=== PATIENT | female | born 1940 | race African-American/Black ===

== ENCOUNTER 2017-11-30 14:04 | Emergency (ER) | payer MEDICARE, OTHER ==
[2017-11-30 14:41] LABS: ADD MAN DIFF? NO
[2017-11-30 14:49] LABS: BASO % 0 % (0-3); EOS # 0.1 x10^3/uL (0.0-0.7); EOS % 3 % (0-3); HEMATOCRIT 31.8 % (36.0-47.0); HEMOGLOBIN 10.6 g/dL (12.0-15.5); LYMPH # 1.3 x10^3/uL (1.0-4.8); LYMPH % 38 % (24-48); MEAN CORPUSCULAR HEMOGLOBIN 31 pg (25-35); MEAN CORPUSCULAR HGB CONC 33 g/dL (31-37); MEAN CORPUSCULAR VOLUME 93 fL (79-100); MONO # 0.5 x10^3/uL (0.0-1.1); MONO % 16 % (0-9); NEUT # 1.4 x10^3uL (1.8-7.7); NEUT % 43 % (31-73); PLATELET COUNT 145 x10^3/uL (140-400); RED BLOOD COUNT 3.43 x10^6/uL (3.50-5.40); RED CELL DISTRIBUTION WIDTH 14.6 % (11.5-14.5); WHITE BLOOD COUNT 3.3 x10^3/uL (4.0-11.0)
[2017-11-30 14:57] LABS: ANION GAP 10 (6-14); BLOOD UREA NITROGEN 19 mg/dL (7-20); BUN/CREATININE RATIO 32 (6-20); CALCIUM 9.1 mg/dL (8.5-10.1); CARBON DIOXIDE 28 mmol/L (21-32); CHLORIDE 105 mmol/L (98-107); CREATININE 0.6 mg/dL (0.6-1.0); GFR 117.9; GLUCOSE 120 mg/dL (70-99); POTASSIUM 3.8 mmol/L (3.5-5.1); SODIUM 143 mmol/L (136-145)
[2017-11-30 15:03] LABS: ALBUMIN 3.8 g/dL (3.4-5.0); ALBUMIN/GLOBULIN RATIO 1.1 (1.0-1.7); ALK PHOS 77 U/L (46-116); ALT (SGPT) 38 U/L (14-59); AST (SGOT) 24 U/L (15-37); C-REACTIVE PROTEIN 1.2 mg/L (0-3.3); TOTAL BILIRUBIN 0.4 mg/dL (0.2-1.0); TOTAL PROTEIN 7.4 g/dL (6.4-8.2)
[2017-11-30 15:30] LABS: BACTERIA,URINE MANY /HPF (0-FEW); BILIRUBIN,URINE NEGATIVE (NEG); CLARITY,URINE CLOUDY; COLOR,URINE YELLOW; GLUCOSE,URINE NEGATIVE (NEG); NITRITE,URINE POSITIVE (NEG); PH,URINE 7.5; PROTEIN,URINE NEGATIVE (NEG-TRACE); SQUAMOUS EPITHELIAL CELL,UR FEW /LPF; UROBILINOGEN,URINE 0.2 mg/dL (0.2 mg/dL)
[2017-11-30 15:57] LABS: SEDIMENTATION RATE 14 (0-25)
== END 2017-11-30 17:28 | disposition home or self-care (01) ==
LOC: ER 17:28
DX: I87.8 Other specified disorders of veins (principal); N39.0 Urinary tract infection, site not specified; F32.9 Major depressive disorder, single episode, unspecified; E11.9 Type 2 diabetes mellitus without complications; I11.0 Hypertensive heart disease with heart failure; I50.9 Heart failure, unspecified; G89.29 Other chronic pain; Z90.710 Acquired absence of both cervix and uterus
CPT/HCPCS: 36415; 80053; 81001; 85025; 85651; 86140; 87040; 87086; 87186; 93970; 99285-25; P9612

== ENCOUNTER → 2017-12-21 | Outpatient (CLI) | payer MEDICARE, OTHER | END | disposition home or self-care (01) | LOC: MRI 11:00 | DX: M48.061 Spinal stenosis, lumbar region without neurogenic claudication (principal); M51.16 Intervertebral disc disorders with radiculopathy, lumbar region | CPT/HCPCS: 72148 ==

== ENCOUNTER → 2017-12-28 | Outpatient (CLI) | payer MEDICARE, OTHER ==
[~2017-12-28] MED LIST: IOHEXOL 180 MG/ML 10 ML VIAL.; LIDOCAINE 1% PF 2 ML VIAL.; methylPREDNISolone ACETATE 40 MG/ML VIAL.; methylPREDNISolone ACETATE 80 MG/ML VIAL.
== END | disposition home or self-care (01) ==
LOC: PNCL 11:14
DX: M51.16 Intervertebral disc disorders with radiculopathy, lumbar region (principal); M48.061 Spinal stenosis, lumbar region without neurogenic claudication; Z86.73 Personal history of transient ischemic attack (TIA), and cerebral infarction without residual deficits; I11.0 Hypertensive heart disease with heart failure; I50.9 Heart failure, unspecified; E78.00 Pure hypercholesterolemia, unspecified; Z90.49 Acquired absence of other specified parts of digestive tract; Z90.710 Acquired absence of both cervix and uterus; Z87.440 Personal history of urinary (tract) infections; M19.90 Unspecified osteoarthritis, unspecified site; M06.9 Rheumatoid arthritis, unspecified; E11.9 Type 2 diabetes mellitus without complications; F32.9 Major depressive disorder, single episode, unspecified; Z98.890 Other specified postprocedural states; Z98.1 Arthrodesis status; Z79.84 Long term (current) use of oral hypoglycemic drugs; Z79.899 Other long term (current) drug therapy
CPT/HCPCS: 62323; J1030; J1040; Q9965

== ENCOUNTER 2018-10-04 13:38 | Inpatient (IN) | payer MEDICARE, OTHER ==
[~2018-10-04] VITALS: Ht 160 cm; Wt 60.1 kg
[~2018-10-04 13:38] MED LIST changes: +ACET325T9 PO; +ACET500T68 PO; +BACL10TA PO; +CELE200C PO; +CIPR250T30 PO; +FENT1PAT91 TP; +FOLI1TAB16 PO; +FURO20TA3 PO; +GABA300C18 PO; -IOHEXOL 180 MG/ML 10 ML VIAL.; -LIDOCAINE 1% PF 2 ML VIAL.; +LINA5TAB PO; +LISI10TA2 PO; +LISI5TAB PO; +LOSA-73 PO; +METF10007 PO; +OXYC1TAB8 PO; +POLY17PO29 PO; +SENN-82 PO; +SERT50TA PO; +SIMV10TA3 PO; +SIMV20TA3 PO; +SITA25TA PO; +SITA50TA PO; +THERAVITE PO; +TIZA4TAB8 PO; +[UNRECOGNIZED DRUG - CODE] PO; -methylPREDNISolone ACETATE 40 MG/ML VIAL.; -methylPREDNISolone ACETATE 80 MG/ML VIAL.; +tamulosin PO
[2018-10-04 14:53] LABS: BASO % 0 % (0-3); EOS % 1 % (0-3); HEMATOCRIT 35.9 % (36.0-47.0); HEMOGLOBIN 11.8 g/dL (12.0-15.5); LYMPH # 1.2 x10^3/uL (1.0-4.8); LYMPH % 27 % (24-48); MEAN CORPUSCULAR HEMOGLOBIN 30 pg (25-35); MEAN CORPUSCULAR HGB CONC 33 g/dL (31-37); MEAN CORPUSCULAR VOLUME 91 fL (79-100); MONO # 0.5 x10^3/uL (0.0-1.1); MONO % 11 % (0-9); NEUT # 2.7 x10^3uL (1.8-7.7); NEUT % 62 % (31-73); PLATELET COUNT 182 x10^3/uL (140-400); RED BLOOD COUNT 3.96 x10^6/uL (3.50-5.40); RED CELL DISTRIBUTION WIDTH 14.4 % (11.5-14.5); WHITE BLOOD COUNT 4.3 x10^3/uL (4.0-11.0)
[2018-10-04 14:54] LABS: BILIRUBIN,URINE SMALL (NEG); CLARITY,URINE CLEAR; COLOR,URINE YELLOW; NITRITE,URINE POSITIVE (NEG); PROTEIN,URINE 30 mg/dL (NEG-TRACE)
[2018-10-04 14:57] LABS: HYALINE CASTS, URINE FEW /HPF
[2018-10-04 14:58] LABS: BACTERIA,URINE MANY /HPF (0-FEW)
[2018-10-04 15:02] LABS: CALCIUM 9.6 mg/dL (8.5-10.1); CREATININE 0.9 mg/dL (0.6-1.0); GFR 73.7; POTASSIUM 3.7 mmol/L (3.5-5.1)
[2018-10-04 15:08] LABS: ALBUMIN 3.9 g/dL (3.4-5.0); TOTAL BILIRUBIN 0.6 mg/dL (0.2-1.0)
--- NOTE | 2018-10-04 15:10 | EKG ---
[facility] [address] [place] [address] Test Date: 2018-10-04 Test Time: 13:50:22 Pat Name: MIS LEE Department: Room: Gender: F Php Website Developer: : 1940 Requested By: FRITZ DÍAZ Order Number: [id number] Reading MD: Tony Costa Measurements Intervals [place] Rate: 84 P: 48 IN: 142 QRS: -16 QRSD: 86 T: -1 QT: 376 QTc: 447 Interpretive Statements SINUS RHYTHM LEFTWARD AXIS NON SPECIFIC T ABNORMALITY Electronically Signed On 10-08-2018 9:21:00 CDT by Tony Costa
--- NOTE | 2018-10-04 15:28 | PHYS DOC ---
Past Medical History Past Medical History: CHF, Depression, Diabetes-Type II, Hypertension, Other Additional Past Medical Histor: blood clots, chronic back pain, (FRITZ DÍAZ SECURITIES AND REAL ESTATE DIRECTOR) Past Surgical History: Appendectomy, Cervical Fusion, Hysterectomy, Tonsillectomy (FRITZ DÍAZ SECURITIES AND REAL ESTATE DIRECTOR) Alcohol Use: None Drug Use: None (FRITZ DÍAZ APRN) Adult General Chief Complaint Chief Complaint: WEAKNESS/GENERALIZED HPI HPI Patient is a 78 year old female who presents with decreased LOC, weakness and an inability to walk at home per her daughter. She arrived via EMS. The patient ia a very poor historian. She does complain of dysuria. She denies headache or chest pain. (FRITZ DÍAZ SECURITIES AND REAL ESTATE DIRECTOR) Review of Systems Review of Systems Constitutional: Denies fever or chills [] Eyes: Denies change in visual acuity, redness, or eye pain [] HENT: Denies nasal congestion or sore throat [] Respiratory: Denies cough or shortness of breath [] Cardiovascular: No additional information not addressed in HPI [] GI: Denies abdominal pain, nausea, vomiting, bloody stools or diarrhea [] : See history of present illness Musculoskeletal: Denies back pain or joint pain [] Integument: Denies rash or skin lesions [] Neurologic: Denies headache, focal weakness or sensory changes [] Endocrine: Denies polyuria or polydipsia [] All other systems were reviewed and found to be within normal limits, except as documented in this note. (JESSICAFRITZ VENCES APRN) Allergies Allergies Allergies Coded Allergies Type Severity Reaction Last Updated Verified No Known Drug Allergies 09/28/14 No (EFREN MILLS MD) Physical Exam Physical Exam Constitutional: Well developed, well nourished, no acute distress, non-toxic appearance. [] Eyes: PERRLA, EOMI, conjunctiva normal, no discharge. [] Neck: Normal range of motion, no tenderness, supple, no stridor. [] Cardiovascular:Heart rate regular rhythm, no murmur [] Lungs & Thorax: Bilateral breath sounds clear to auscultation [] Abdomen: Bowel sounds normal, soft, no tenderness, no masses, no pulsatile masses. [] Skin: Warm, dry, no erythema, no rash. [] Back: No tenderness, no CVA tenderness. [] Extremities: No tenderness, erythema and 1+ edema to bilateral lower extremities Neurologic: Alert and oriented X 3, normal motor function, normal sensory function, no focal deficits noted. [] Psychologic: Affect normal, judgement normal, mood normal. [] (ARJUNFRITZМАРИЯ Joseph APRN) Current Patient Data Vital Signs Vital Signs Date Time Temp Pulse Resp B/P (MAP) Pulse Ox O2 Delivery O2 Flow Rate FiO2 10/04/18 14:50 82 31 100 10/04/18 13:45 99.0 153/75 (101) Room Air 99.0 (EFREN MILLS MD) Lab Values Laboratory Tests Test 10/04/18 14:25 White Blood Count 4.3 x10^3/uL (4.0-11.0) Red Blood Count 3.96 x10^6/uL (3.50-5.40) Hemoglobin 11.8 g/dL (12.0-15.5) L Hematocrit 35.9 % (36.0-47.0) L Mean Corpuscular Volume 91 fL (79-100) Mean Corpuscular Hemoglobin 30 pg (25-35) Mean Corpuscular Hemoglobin Concent 33 g/dL (31-37) Red Cell Distribution Width 14.4 % (11.5-14.5) Platelet Count 182 x10^3/uL (140-400) Neutrophils (%) (Auto) 62 % (31-73) Lymphocytes (%) (Auto) 27 % (24-48) Monocytes (%) (Auto) 11 % (0-9) H Eosinophils (%) (Auto) 1 % (0-3) Basophils (%) (Auto) 0 % (0-3) Neutrophils # (Auto) 2.7 x10^3uL (1.8-7.7) Lymphocytes # (Auto) 1.2 x10^3/uL (1.0-4.8) Monocytes # (Auto) 0.5 x10^3/uL (0.0-1.1) Eosinophils # (Auto) 0.0 x10^3/uL (0.0-0.7) Basophils # (Auto) 0.0 x10^3/uL (0.0-0.2) Urine Collection Type U cath Urine Color Yellow Urine Clarity Clear Urine pH 5.0 Urine Specific [place] >=1.030 Urine Protein 30 mg/dL (NEG-TRACE) Urine Glucose (UA) 250 mg/dL (NEG) Urine Ketones (Stick) 15 mg/dL (NEG) Urine Blood Moderate (NEG) Urine Nitrite Positive (NEG) Urine Bilirubin Small (NEG) Urine Urobilinogen Dipstick 1.0 mg/dL (0.2 mg/dL) Urine Leukocyte Esterase Small (NEG) Urine RBC 1-2 /HPF (0-2) Urine WBC 11-20 /HPF (0-4) Urine Bacteria Many /HPF (0-FEW) Urine Hyaline Casts Few /HPF Urine Mucus Mod /LPF Sodium Level 140 mmol/L (136-145) Potassium Level 3.7 mmol/L (3.5-5.1) Chloride Level 100 mmol/L (98-107) Carbon Dioxide Level 30 mmol/L (21-32) Anion Gap 10 (6-14) Blood Urea Nitrogen 20 mg/dL (7-20) Creatinine 0.9 mg/dL (0.6-1.0) Estimated GFR (Cockcroft-Gault) 73.7 BUN/Creatinine Ratio 22 (6-20) H Glucose Level 206 mg/dL (70-99) H Lactic Acid Level 1.8 mmol/L (0.4-2.0) Calcium Level 9.6 mg/dL (8.5-10.1) Total Bilirubin 0.6 mg/dL (0.2-1.0) Aspartate Amino Transferase (AST) 53 U/L (15-37) H Alanine Aminotransferase (ALT) 71 U/L (14-59) H Alkaline Phosphatase 87 U/L (46-116) Total Protein 8.0 g/dL (6.4-8.2) Albumin 3.9 g/dL (3.4-5.0) Albumin/Globulin Ratio 1.0 (1.0-1.7) Laboratory Tests 10/04/18 14:25 Laboratory Tests 10/04/18 14:25 Microbiology 10/04/18 Blood Culture - Preliminary, Resulted NO GROWTH AFTER 1 DAY (EFREN MILLS MD) EKG EKG [] (FRITZ DÍAZ APRN) Radiology/Procedures Radiology/Procedures [] (FRITZ DÍAZ APRN) Course & Med Decision Making Course & Med Decision Making Pertinent Labs and Imaging studies reviewed. (See chart for details) []Patient is positive for UTI. She has been placed on Rocephin. She is been admitted to Dr. Holcomb's service. (FRITZ DÍAZ APRN) Course & Med Decision Making Staff Physician Addendum: I was working in the ER during the course of this patient's visit. I was available for consultation as needed, but I was not directly involved in the care of this patient. (EFREN MILLS MD) Dragon Disclaimer Dragon Disclaimer This electronic medical record was generated, in whole or in part, using a voice recognition dictation system. (FRITZ DÍAZ APRN) Departure Departure Impression: Primary Impression: UTI (lower urinary tract infection) Additional Impression: Generalized weakness Disposition: ADMITTED INPATIENT Admitting Physician: Troy Holcomb (FRITZ DÍAZ APRN) Condition: GOOD Referrals: TROY HOLCOMB MD (PCP) Problem Qualifiers FRITZ DÍAZ APRN Oct 04, 2018 15:28 EFREN MILLS MD Oct 05, 2018 18:11
[2018-10-04] MEDS ORDERED: ONDANSETRON PF 4 MG/2 ML VIAL. IV PRN (15:30)
[2018-10-04] MEDS ORDERED: fentaNYL PF VIAL 100 MCG/2 ML VIAL IV PRN (15:30)
[2018-10-04] MEDS ORDERED: cefTRIAXone IV Push 1 GM VIAL. IVP ONE (15:30)
--- NOTE | 2018-10-04 15:35 | RAD ---
CHEST AP ONLY Clinical indications: WEAKNESS COMPARISON: January 06, 2016 Findings: No acute lung infiltrate or pleural effusion or pulmonary edema or lung mass or pneumothorax is seen. Heart size appears more prominent but this may be due to AP magnification and rotation towards the left side. The pulmonary vasculature, mediastinum and both kashif are unremarkable. Impression: No acute radiographic abnormality is seen. Electronically signed by: Tobias Banegas MD (10/04/2018 3:32 PM) [id number]
--- NOTE | 2018-10-04 15:46 | RAD ---
EXAM: Head CT without contrast. HISTORY: Weakness. Altered level of consciousness. TECHNIQUE: Computed tomographic images of the head were obtained without contrast. *One or more of the following individualized dose reduction techniques were utilized for this examination: 1. Automated exposure control. 2. Adjustment of the mA and/or kV according to patient size. 3. Use of iterative reconstruction technique. COMPARISON: 01/02/2015. FINDINGS: There is no acute or subacute hemorrhage. There is no mass effect or midline shift. There is dilatation of the posterior bilateral lateral ventricles due to posterior cerebral volume loss. There is decreased attenuation throughout the cerebral white matter, likely due to chronic small vessel disease. There is partial visualization of cervical spinal fusion instrumentation. The mastoid air cells are clear. The orbits are unremarkable. The visualized paranasal sinuses are unremarkable. There is a left frontal bone isidra hole. IMPRESSION: 1. No acute intracranial finding. Note is made that MRI is more sensitive for acute infarction. 2. Decreased attenuation within the cerebral white matter, likely due to chronic small vessel disease. 3. Stable posterior bilateral lateral ventricular enlargement due to posterior predominant cerebral volume loss. Electronically signed by: Carrol Larry MD (10/04/2018 3:43 PM) [id number]
[2018-10-04] MEDS: IV NORMAL SALINE 1000ML BAG 1,000 ML IV SCH (15:58)
[2018-10-04] MEDS ORDERED: GABA300C18 PO (17:39)
[2018-10-04] MEDS ORDERED: AMLO10TA8 PO (17:39)
--- NOTE | 2018-10-04 17:39 | PDOC ---
Provider Note Provider Note history and physical dictated # [id number] DEVORA BOSCH MD Oct 04, 2018 17:39
[2018-10-04 18:00] VITALS: BP 151/69
[2018-10-04] MEDS: LOSARTAN POTASSIUM 50 MG TABLET. PO SCH (18:00)
[2018-10-04] MEDS: ACETAMINOPHEN 325 MG TABLET. PO PRN (18:25)
[2018-10-04] MEDS: metFORMIN 500 MG TABLET PO SCH (18:25)
[2018-10-04] MEDS: amLODIPine BESYLATE 5 MG TABLET PO SCH (18:26)
--- NOTE | 2018-10-04 19:44 | HP ---
ADMIT DATE: 10/04/2018 LOCATION: She is in room 508. 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 She notes a 3-day history of increasing weakness to the point where the family could not get out of bed, she could not ambulate. She also complained of dysuria. She received a dose of IV Rocephin for urinary tract infection in the Emergency Room. Chest x-ray was unremarkable. Laboratory tests in the Emergency Room were also unremarkable. She had a CAT scan of the brain also which did not show any acute abnormality. MEDICATIONS: Prior to admission include amlodipine, unclear if the dose is 5 or 10 mg a day. She takes folic acid 1 mg every day, gabapentin 300 mg t.i.d., losartan 100 mg every day, metformin 1000 mg b.i.d., methotrexate 10 mg every Thursday, MiraLax 17 grams in 8 ounce fluid every day. Percocet 7.5/325 mg 1 b.i.d. p.r.n. ALLERGIES: Side effect to ACTOS, which caused elevated liver function tests. PAST HISTORY: Significant for diabetes mellitus type 2, hypertension. 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 I believe she also has a neurogenic bowel and bladder. She has cervical spondylosis with myelopathy. Rheumatoid arthritis. Diabetes mellitus type 2 with polyneuropathy. She has had an appendectomy, hysterectomy, tonsillectomy, arthrocentesis of trigger finger of the left hand. She has a history of gastritis in the past. SOCIAL HISTORY: She does not drink alcohol nor does she smoke cigarettes. Lives with her , ambulates with a walker, retired. FAMILY HISTORY: Not contributory. REVIEW OF SYSTEMS: GENERAL: She denies any fever, chills or sweats in the last 3 days. CARDIOVASCULAR: No chest pain. PULMONARY: No cough or no shortness of breath. GASTROINTESTINAL: She has dysuria. MUSCULOSKELETAL: Generalized weakness. ENDOCRINE: She has diabetes mellitus. SKIN: No rashes. The rest of systems reviewed are negative except as stated in history of present illness. PHYSICAL EXAMINATION: VITAL SIGNS: Temperature is 99 degrees. Apical pulse is regular at 72, respiratory rate 22, blood pressure is 153/75. Oxygen saturation is 100%. HEENT: Eyes: Gaze is conjugate. Mouth: Tongue is midline. She wears dentures. NECK: No cervical lymphadenopathy or thyroid enlargement. HEART: Reveals an S1, S2. There is no S3 or murmur. LUNGS: Clear anteriorly. ABDOMEN: Soft with no hepatosplenomegaly, masses or tenderness. EXTREMITIES: Lower extremities without edema. Both feet are warm. SKIN: No rashes. NEUROLOGIC: There is no facial weakness. She got 4/5 bilateral hand regional account executive. I am unable to raise her arms overhead. She got about a 3/5 biceps bilaterally. Lower extremities: She is able to dorsi and plantarflex her feet to some extent, was unable to bend her knees and raise her legs up in the air well for me. SKIN: No rashes. LABORATORY DATA: White count 4.3, hemoglobin 11.8 with a platelet count 182,000, 62 polys and 27 lymphocytes. Sodium 140, potassium 3.7, chloride 100, total CO2 of 30 with a BUN of 20, creatinine 0.9, blood sugar 206. SGOT of 53, SGPT of 71. Total bilirubin and alkaline phosphatase normal, albumin at 3.9. Urinalysis showed 11-20 white cells and 1-2 red blood cells. EKG showed normal sinus rhythm with some artifact. The chest x-ray showed no acute abnormality. A CAT scan of the brain showed no acute abnormality. She had some cerebral volume loss noted in the posterior aspect. No acute finding was seen. ASSESSMENT: 1. Pyuria consistent with urinary tract infection. 2. Disuse myopathy. 3. 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 4. Diabetes mellitus type 2. 5. Hypertension. 6. Rheumatoid arthritis on methotrexate. 7. Immunosuppressed due to the methotrexate. PLAN: At this time is to admit her to the hospital. Wait for the urine cultures. Continue with IV Rocephin, which she got in the Emergency Room. Order physical and occupational therapy. Order Lovenox for deep vein thrombosis prophylaxis. We will also continue with her home medications. She will be seen by physical and occupational therapy. We will consult Dr. Montero. Her physical rehabilitation consultation. We will continue her home medications including her metformin and her antihypertensive medications. Check a lipid profile tomorrow. We will also check a vitamin D level and vitamin B12 level. Put her on a diabetic diet. Check her blood sugars before meals t.i.d. and at bedtime. Continue her folic acid. Check a lipid profile tomorrow also. Blood and urine cultures were also ordered in the Emergency Room. Also do postvoid bladder scans every 6 hours and straight cath if she has 300 mL or more. DEVORA BOSCH MD DR: MONIQUE/azar JOB#: [id number] / [id number]
[2018-10-04] MEDS: SENNOSIDES/DOCUSATE 8.6/50MG TABLET. PO SCH (21:00)
[2018-10-04] MEDS: GABAPENTIN 300 MG CAPSULE. PO SCH (21:22)
[2018-10-04] MEDS: ENOXAPARIN 40 MG/0.4 ML SYRINGE. SQ SCH (21:23)
[2018-10-04 23:00] VITALS: BP 122/64
[2018-10-05 02:44] VITALS: BP 144/66
[2018-10-05] MEDS: IV NORMAL SALINE 1000ML BAG 1,000 ML IV SCH ×2 (03:42→21:20)
[2018-10-05 04:57] LABS: BASO % 0 % (0-3); EOS # 0.1 x10^3/uL (0.0-0.7); EOS % 2 % (0-3); HEMOGLOBIN 10.8 g/dL (12.0-15.5); LYMPH # 1.7 x10^3/uL (1.0-4.8); LYMPH % 40 % (24-48); MEAN CORPUSCULAR HEMOGLOBIN 30 pg (25-35); MEAN CORPUSCULAR HGB CONC 33 g/dL (31-37); MEAN CORPUSCULAR VOLUME 92 fL (79-100); MONO # 0.4 x10^3/uL (0.0-1.1); MONO % 11 % (0-9); NEUT % 47 % (31-73); PLATELET COUNT 149 x10^3/uL (140-400); RED BLOOD COUNT 3.61 x10^6/uL (3.50-5.40); RED CELL DISTRIBUTION WIDTH 14.7 % (11.5-14.5); WHITE BLOOD COUNT 4.2 x10^3/uL (4.0-11.0)
[2018-10-05 05:19] LABS: CALCIUM 9.2 mg/dL (8.5-10.1); CREATININE 0.7 mg/dL (0.6-1.0); GFR 98.4; POTASSIUM 3.7 mmol/L (3.5-5.1)
[2018-10-05 05:20] LABS: CHOLESTEROL/HDL RATIO 2.4
[2018-10-05 07:00] VITALS: BP 148/45
--- NOTE | 2018-10-05 08:33 | RAD ---
CT of the cervical spine without contrast, 10/04/2018: HISTORY: Cervical spinal stenosis with myelopathy Noncontrast scans were obtained with multiplanar reconstructions produced. There has been previous posterior spinal fusion and instrumentation from C3 through C6. On the right there are posterolateral fixation screws at C3, C4 and C5 attached to longitudinally oriented posterior fixation rods. On the left there are posterolateral screws at C3, C4, C5 and C6 attached to longitudinally oriented posterior fixation rods. There is a long laminectomy defect extending from C3 down to the upper T1 level. There is degenerative disc disease throughout the cervical spine with fusion of the C5-6 and C6-7 disc spaces. There is extensive anterior spurring at C7-T1. There is considerable facet joint arthropathy at multiple levels, most severe on the right at C2-3. No significant associated spondylolisthesis is evident. The posterior disc margins are poorly defined due to artifacts related to the fixation devices. No high-grade bony central spinal stenosis is identified. Incidental note is made of an enlarged heterogeneous thyroid gland containing several bilateral calcified nodules. IMPRESSION: 1. Previous cervical spinal fusion and instrumentation with a long posterior decompressive laminectomy as described above. 2. Moderate to severe multilevel degenerative change. PQRS Compliance Statement: One or more of the following individualized dose reduction techniques were utilized for this examination: 1. Automated exposure control 2. Adjustment of the mA and/or kV according to patient size 3. Use of iterative reconstruction technique Electronically signed by: Jewel Hanks MD (10/05/2018 8:30 AM) [facility]
[2018-10-05] MEDS: LOSARTAN POTASSIUM 50 MG TABLET. PO SCH (09:31)
[2018-10-05] MEDS: metFORMIN 500 MG TABLET PO SCH ×2 (09:32→17:00)
[2018-10-05] MEDS: FOLIC ACID 1 MG TABLET. PO SCH (09:32)
[2018-10-05] MEDS: GABAPENTIN 300 MG CAPSULE. PO SCH ×3 (09:33→21:20)
[2018-10-05] MEDS: amLODIPine BESYLATE 5 MG TABLET PO SCH (09:33)
[2018-10-05] MEDS: oxyCODONE/APAP 7.5/325 1 TAB TABLET PO PRN ×2 (10:08→21:44)
[2018-10-05] MEDS ORDERED: IV NORMAL SALINE 1000ML BAG 1,000 ML IV SCH (10:30)
[2018-10-05 11:00] VITALS: BP 156/49
--- NOTE | 2018-10-05 14:53 | PDOC ---
PROGRESS NOTES Subjective Subjective feels okay.seen earlier.ct scan of cervical spine reviewed. with previous fusion and spondylosis Objective Objective Vital Signs Date Time Temp Pulse Resp B/P (MAP) Pulse Ox O2 Delivery O2 Flow Rate FiO2 10/05/18 11:00 97.9 76 16 156/49 (84) 99 Room Air 97.9 Intake and Output 10/05/18 07:00 Intake Total 100 ml Output Total 800 ml Balance -700 ml Intake Oral 100 ml Output Urine Total 800 ml Physical Exam Abdomen: Soft Heart: Regular rate, Normal S1, Normal S2 Extremities: No edema General: Alert HEENT: Atraumatic Lungs: Clear to auscultation Neuro: Normal speech, Other Psych/Mental Status: Mental status NL Skin: No rashes Assessment Assessment Problems1. Pyuria consistent with urinary tract infection. 2. Disuse myopathy. 3. 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 4. Diabetes mellitus type 2. 5. Hypertension. 6. Rheumatoid arthritis on methotrexate. 7. Immunosuppressed due to the methotrexate. Medical Problems: (1) Generalized weakness Status: Acute (2) UTI (lower urinary tract infection) Status: Acute Plan Plan of Care PT and OT consult dr. peggy kumari await urine culture Comment Review of Relevant I have reviewed the following items shruthi (where applicable) has been applied. Labs Laboratory Tests Test 10/04/18 14:25 10/04/18 17:36 10/05/18 04:20 10/05/18 08:23 White Blood Count 4.3 x10^3/uL (4.0-11.0) 4.2 x10^3/uL (4.0-11.0) Red Blood Count 3.96 x10^6/uL (3.50-5.40) 3.61 x10^6/uL (3.50-5.40) Hemoglobin 11.8 g/dL (12.0-15.5) 10.8 g/dL (12.0-15.5) Hematocrit 35.9 % (36.0-47.0) 33.0 % (36.0-47.0) Mean Corpuscular Volume 91 fL (79-100) 92 fL (79-100) Mean Corpuscular Hemoglobin 30 pg (25-35) 30 pg (25-35) Mean Corpuscular Hemoglobin Concent 33 g/dL (31-37) 33 g/dL (31-37) Red Cell Distribution Width 14.4 % (11.5-14.5) 14.7 % (11.5-14.5) Platelet Count 182 x10^3/uL (140-400) 149 x10^3/uL (140-400) Neutrophils (%) (Auto) 62 % (31-73) 47 % (31-73) Lymphocytes (%) (Auto) 27 % (24-48) 40 % (24-48) Monocytes (%) (Auto) 11 % (0-9) 11 % (0-9) Eosinophils (%) (Auto) 1 % (0-3) 2 % (0-3) Basophils (%) (Auto) 0 % (0-3) 0 % (0-3) Neutrophils # (Auto) 2.7 x10^3uL (1.8-7.7) 2.0 x10^3uL (1.8-7.7) Lymphocytes # (Auto) 1.2 x10^3/uL (1.0-4.8) 1.7 x10^3/uL (1.0-4.8) Monocytes # (Auto) 0.5 x10^3/uL (0.0-1.1) 0.4 x10^3/uL (0.0-1.1) Eosinophils # (Auto) 0.0 x10^3/uL (0.0-0.7) 0.1 x10^3/uL (0.0-0.7) Basophils # (Auto) 0.0 x10^3/uL (0.0-0.2) 0.0 x10^3/uL (0.0-0.2) Urine Collection Type U cath Urine Color Yellow Urine Clarity Clear Urine pH 5.0 Urine Specific [place] >=1.030 Urine Protein 30 mg/dL (NEG-TRACE) Urine Glucose (UA) 250 mg/dL (NEG) Urine Ketones (Stick) 15 mg/dL (NEG) Urine Blood Moderate (NEG) Urine Nitrite Positive (NEG) Urine Bilirubin Small (NEG) Urine Urobilinogen Dipstick 1.0 mg/dL (0.2 mg/dL) Urine Leukocyte Esterase Small (NEG) Urine RBC 1-2 /HPF (0-2) Urine WBC 11-20 /HPF (0-4) Urine Bacteria Many /HPF (0-FEW) Urine Hyaline Casts Few /HPF Urine Mucus Mod /LPF Sodium Level 140 mmol/L (136-145) 140 mmol/L (136-145) Potassium Level 3.7 mmol/L (3.5-5.1) 3.7 mmol/L (3.5-5.1) Chloride Level 100 mmol/L (98-107) 104 mmol/L (98-107) Carbon Dioxide Level 30 mmol/L (21-32) 28 mmol/L (21-32) Anion Gap 10 (6-14) 8 (6-14) Blood Urea Nitrogen 20 mg/dL (7-20) 17 mg/dL (7-20) Creatinine 0.9 mg/dL (0.6-1.0) 0.7 mg/dL (0.6-1.0) Estimated GFR (Cockcroft-Gault) 73.7 98.4 BUN/Creatinine Ratio 22 (6-20) Glucose Level 206 mg/dL (70-99) 117 mg/dL (70-99) Lactic Acid Level 1.8 mmol/L (0.4-2.0) Calcium Level 9.6 mg/dL (8.5-10.1) 9.2 mg/dL (8.5-10.1) Total Bilirubin 0.6 mg/dL (0.2-1.0) Aspartate Amino Transf (AST/SGOT) 53 U/L (15-37) Alanine Aminotransferase (ALT/SGPT) 71 U/L (14-59) Alkaline Phosphatase 87 U/L (46-116) Total Protein 8.0 g/dL (6.4-8.2) Albumin 3.9 g/dL (3.4-5.0) Albumin/Globulin Ratio 1.0 (1.0-1.7) Glucose (Fingerstick) 138 mg/dL (70-99) 100 mg/dL (70-99) Triglycerides Level 44 mg/dL (0-150) Cholesterol Level 105 mg/dL (0-200) LDL Cholesterol, Calculated 53 mg/dL (0-100) VLDL Cholesterol, Calculated 9 mg/dL (0-40) Non-HDL Cholesterol Calculated 62 mg/dL (0-129) HDL Cholesterol 43 mg/dL (40-60) Cholesterol/HDL Ratio 2.4 Vitamin B12 Level 1217 pg/mL (247-911) 25-Hydroxy Vitamin D Total 40.9 ng/mL (30-100) Test 10/05/18 12:03 Glucose (Fingerstick) 192 mg/dL (70-99) Laboratory Tests Test 10/04/18 17:36 10/05/18 04:20 10/05/18 08:23 10/05/18 12:03 Glucose (Fingerstick) 138 mg/dL (70-99) 100 mg/dL (70-99) 192 mg/dL (70-99) White Blood Count 4.2 x10^3/uL (4.0-11.0) Red Blood Count 3.61 x10^6/uL (3.50-5.40) Hemoglobin 10.8 g/dL (12.0-15.5) Hematocrit 33.0 % (36.0-47.0) Mean Corpuscular Volume 92 fL (79-100) Mean Corpuscular Hemoglobin 30 pg (25-35) Mean Corpuscular Hemoglobin Concent 33 g/dL (31-37) Red Cell Distribution Width 14.7 % (11.5-14.5) Platelet Count 149 x10^3/uL (140-400) Neutrophils (%) (Auto) 47 % (31-73) Lymphocytes (%) (Auto) 40 % (24-48) Monocytes (%) (Auto) 11 % (0-9) Eosinophils (%) (Auto) 2 % (0-3) Basophils (%) (Auto) 0 % (0-3) Neutrophils # (Auto) 2.0 x10^3uL (1.8-7.7) Lymphocytes # (Auto) 1.7 x10^3/uL (1.0-4.8) Monocytes # (Auto) 0.4 x10^3/uL (0.0-1.1) Eosinophils # (Auto) 0.1 x10^3/uL (0.0-0.7) Basophils # (Auto) 0.0 x10^3/uL (0.0-0.2) Sodium Level 140 mmol/L (136-145) Potassium Level 3.7 mmol/L (3.5-5.1) Chloride Level 104 mmol/L (98-107) Carbon Dioxide Level 28 mmol/L (21-32) Anion Gap 8 (6-14) Blood Urea Nitrogen 17 mg/dL (7-20) Creatinine 0.7 mg/dL (0.6-1.0) Estimated GFR (Cockcroft-Gault) 98.4 Glucose Level 117 mg/dL (70-99) Calcium Level 9.2 mg/dL (8.5-10.1) Triglycerides Level 44 mg/dL (0-150) Cholesterol Level 105 mg/dL (0-200) LDL Cholesterol, Calculated 53 mg/dL (0-100) VLDL Cholesterol, Calculated 9 mg/dL (0-40) Non-HDL Cholesterol Calculated 62 mg/dL (0-129) HDL Cholesterol 43 mg/dL (40-60) Cholesterol/HDL Ratio 2.4 Vitamin B12 Level 1217 pg/mL (247-911) 25-Hydroxy Vitamin D Total 40.9 ng/mL (30-100) Medications Current Medications Ondansetron HCl (Zofran) 4 mg PRN Q8HRS PRN IV NAUSEA/VOMITING; Start 10/04/18 at 15:30; Stop 10/05/18 at 15:29 Fentanyl Citrate (Fentanyl 2ml Vial) 50 mcg PRN Q1HR PRN IV PAIN; Start 10/04/18 at 15:30; Stop 10/05/18 at 15:29 Sodium Chloride 1,000 ml @ 100 mls/hr Q10H IV Last administered on 10/05/18at 03:42; Start 10/04/18 at 15:21; Stop 10/05/18 at 15:20 Ceftriaxone Sodium (Rocephin) 1 gm 1X ONCE IVP Last administered on 10/04/18at 15:58; Start 10/04/18 at 15:30; Stop 10/04/18 at 15:31; Status DC Enoxaparin Sodium (Lovenox 40mg Syringe) 40 mg Q24H SQ Last administered on 10/04/18at 21:23; Start 10/04/18 at 21:00 Losartan Potassium (Cozaar) 100 mg DAILY PO Last administered on 10/05/18at 09:31; Start 10/04/18 at 18:00 Folic Acid (Folic Acid) 1 mg DAILY PO Last administered on 10/05/18at 09:32; Start 10/05/18 at 09:00 Oxycodone/ Acetaminophen (Percocet 7.5/ 325) 1 tab PRN BID PRN PO MODERATE- SEVERE PAIN Last administered on 10/05/18at 10:08; Start 10/04/18 at 17:30 Methotrexate (Rheumatrex) 10 mg WEEKLY PO ; Start 10/10/18 at 09:00 Metformin HCl (Glucophage) 1,000 mg BIDWMEALS PO Last administered on 10/05/18at 09:32; Start 10/04/18 at 18:00 Gabapentin (Neurontin) 300 mg TID PO Last administered on 10/05/18at 09:33; Start 10/04/18 at 21:00 Amlodipine Besylate (Norvasc) 5 mg DAILY PO Last administered on 10/05/18at 09:33; Start 10/04/18 at 18:00 Senna/Docusate Sodium (Senna Plus) 2 tab QHS PO ; Start 10/04/18 at 21:00 Ceftriaxone Sodium (Rocephin) 1 gm Q24H IVP ; Start 10/05/18 at 16:00 Acetaminophen (Tylenol) 650 mg PRN Q6HRS PRN PO MILD PAIN / TEMP Last administered on 10/04/18at 18:25; Start 10/04/18 at 17:30 Sodium Chloride 1,000 ml @ 60 mls/hr [id number] IV ; Start 10/05/18 at 10:30 Active Scripts Active Reported Amlodipine Besylate 10 Mg Tablet 10 Mg PO DAILY Gabapentin (Gabapentin) 300 Mg Capsule 300 Mg PO TID Tylenol (Acetaminophen) 325 Mg Tablet 2 Tab PO PRN Q6HRS PRN Senna S Tablet (Sennosides/Docusate Sodium) 1 Each Tablet 1 Each PO Miralax (Polyethylene Glycol 3350) 17 Gm Powd.pack 1 Packet PO DAILY Zoloft (Sertraline Hcl) 50 Mg Tablet 50 Mg PO DAILY Oxycodon-Acetaminophen 7.5-325 (Oxycodone Hcl/Acetaminophen) 1 Each Tablet 1 Each PO PRN BID PRN Metformin Hcl 1,000 Mg Tablet 1,000 Mg PO BIDBFRMEAL Vitals/I & O Vital Sign - Last 24 Hours 10/04/18 10/04/18 10/04/18 10/04/18 15:20 15:50 16:20 16:50 Pulse 82 76 76 72 Resp 14 30 22 Pulse Ox 100 100 100 100 10/04/18 10/04/18 10/04/18 10/04/18 18:00 18:26 20:00 23:00 Temp 98.3 99.0 98.3 99.0 Pulse 82 82 82 Resp 20 15 B/P (MAP) 151/69 (96) 151/69 122/64 (83) Pulse Ox 97 95 O2 Delivery Room Air Room Air Room Air 10/05/18 10/05/18 10/05/18 10/05/18 02:44 07:00 09:31 09:33 Temp 98.9 97.7 98.9 97.7 Pulse 75 78 78 78 Resp 17 16 B/P (MAP) 144/66 (92) 148/45 (79) 148/45 148/45 Pulse Ox 97 96 O2 Delivery Room Air Room Air 10/05/18 10/05/18 10:08 11:00 Temp 97.9 97.9 Pulse 76 Resp 14 16 B/P (MAP) 156/49 (84) Pulse Ox 99 O2 Delivery Room Air Intake and Output 10/04/18 10/04/18 10/05/18 15:00 23:00 07:00 Intake Total 100 ml Output Total 800 ml Balance -700 ml DEVORA BOSCH MD Oct 05, 2018 14:53
[2018-10-05] MEDS: cefTRIAXone IV Push 1 GM VIAL. IVP SCH (16:00)
[2018-10-05 19:02] VITALS: BP 148/60
--- NOTE | 2018-10-05 19:27 | NUR ---
See paper MAR for administered day shift meds. [facility] down
[2018-10-05] MEDS: ENOXAPARIN 40 MG/0.4 ML SYRINGE. SQ SCH (21:20)
[2018-10-05] MEDS: SENNOSIDES/DOCUSATE 8.6/50MG TABLET. PO SCH (21:20)
[2018-10-05 23:22] VITALS: BP 149/57
--- NOTE | 2018-10-06 00:28 | CONS ---
DATE OF CONSULTATION: 10/05/2018 ATTENDING PHYSICIAN: Dr. Holcomb. REASON FOR CONSULTATION: The patient was seen at the request of Dr. Holcomb for rehab evaluation. LOCATION: She is in room 508. HISTORY OF PRESENT ILLNESS: This is a 78-year-old female with diabetes mellitus, hypertension, hyperlipidemia, cervical and lumbar spondylosis and degenerative disk disease with associated cervical and lumbar spinal stenosis, status post cervical decompression laminectomy for treatment of cervical spinal stenosis with residual spastic quadriparesis and mobility and self-care limitations. The patient was admitted through the Emergency Room on 01/03/2019 with symptoms of urinary tract infection and being treated. The patient admits some lower back pain. The patient is status post L2 kyphoplasty done in the last few years. The patient lives with her . She usually walks holding onto her or with a roller walker. The patient also had some problems with orthostatic hypotension in the past, pancytopenia, dehydration, rheumatoid arthritis with associated degenerative joint disease, status post appendectomy, hysterectomy, tonsillectomy and diabetic retinopathy. PHYSICAL EXAMINATION: Today revealed an elderly female. She is alert; oriented to time, place, person and circumstance and follows commands appropriately, moves all 4 extremities voluntarily, where she had 4/5 to 4+/5 grade muscle strength, with relatively increased weakness in shoulder girdle muscles, especially on the left side. She had tenderness to palpation over cervical paraspinal muscles, over upper thoracic and lumbar paraspinal muscles, extending over to posterior shoulder girdle muscles and over sacroiliac joint area and straight leg raising test is negative bilaterally. The patient had exaggerated knee jerks, specifically on the left side and decreased ankle jerks. She had some tightness of left heel cord. The patient had some deformity of her toes. The patient requires assistance with bed mobility and transfers. She moves slowly. She made a few steps slowly using a roller walker. The patient had no significant cervical, thoracic or lumbar paraspinal muscle spasm. ASSESSMENT: An elderly female with residual spastic quadriparesis, status post cervical spinal stenosis, treated by cervical decompression laminectomy and fusion with continued neck and shoulder girdle muscle strain and pain and bent over posture and also chronic lower back pain from degenerative disk disease and degenerative joint disease of lumbar vertebrae with associated lumbar spinal stenosis and status post L2 kyphoplasty for compression fracture in the past. No clinical evidence of ongoing lumbar radiculopathy. The patient also had clinical evidence of peripheral neuropathy. RECOMMENDATIONS: To ask physical therapy and occupational therapy to see her. To consider transfer to Custodial Care Unit for continued care when medically stable. Dr. Holcomb, I appreciate asking me to participate in the care of this interesting patient. I will be glad to follow her with you as needed for her rehabilitation to consider trigger point injection if the pain persists on an as-needed basis. BELLO SHEPPARD MD DR: HEMAL/azar JOB#: [id number] / [id number]
[2018-10-06 03:11] VITALS: BP_SYST 161
[2018-10-06 07:00] VITALS: BP 145/59
--- NOTE | 2018-10-06 09:11 | PDOC ---
PROGRESS NOTES Subjective Subjective No new complaints. Objective Objective Vital Signs Date Time Temp Pulse Resp B/P (MAP) Pulse Ox O2 Delivery O2 Flow Rate FiO2 10/06/18 07:00 98.7 79 18 145/59 (87) 96 Room Air 98.7 Intake and Output 10/06/18 07:00 Intake Total 300 ml Output Total 100 ml Balance 200 ml Intake Oral 300 ml Output Urine Total 100 ml # Voids 3 Physical Exam Physical Exam She is alert,eating breakfast in bed with head end propped up and she continues with some urinary incontinence and mobility and self care limitations and I have seen any note from physical or occupational therapy. Assessment Assessment Problems Medical Problems: (1) Generalized weakness Status: Acute (2) UTI (lower urinary tract infection) Status: Acute Plan Plan of Care To get her up as tolerated and to SNF when medically stable and probably her and her needs to go to an assisted living facility unless family members can provide more assistance for them as they are unable to take care of them selves any more. Comment Review of Relevant I have reviewed the following items shruthi (where applicable) has been applied. Labs Laboratory Tests Test 10/04/18 14:25 10/04/18 17:36 10/05/18 04:20 10/05/18 08:23 White Blood Count 4.3 x10^3/uL (4.0-11.0) 4.2 x10^3/uL (4.0-11.0) Red Blood Count 3.96 x10^6/uL (3.50-5.40) 3.61 x10^6/uL (3.50-5.40) Hemoglobin 11.8 g/dL (12.0-15.5) 10.8 g/dL (12.0-15.5) Hematocrit 35.9 % (36.0-47.0) 33.0 % (36.0-47.0) Mean Corpuscular Volume 91 fL (79-100) 92 fL (79-100) Mean Corpuscular Hemoglobin 30 pg (25-35) 30 pg (25-35) Mean Corpuscular Hemoglobin Concent 33 g/dL (31-37) 33 g/dL (31-37) Red Cell Distribution Width 14.4 % (11.5-14.5) 14.7 % (11.5-14.5) Platelet Count 182 x10^3/uL (140-400) 149 x10^3/uL (140-400) Neutrophils (%) (Auto) 62 % (31-73) 47 % (31-73) Lymphocytes (%) (Auto) 27 % (24-48) 40 % (24-48) Monocytes (%) (Auto) 11 % (0-9) 11 % (0-9) Eosinophils (%) (Auto) 1 % (0-3) 2 % (0-3) Basophils (%) (Auto) 0 % (0-3) 0 % (0-3) Neutrophils # (Auto) 2.7 x10^3uL (1.8-7.7) 2.0 x10^3uL (1.8-7.7) Lymphocytes # (Auto) 1.2 x10^3/uL (1.0-4.8) 1.7 x10^3/uL (1.0-4.8) Monocytes # (Auto) 0.5 x10^3/uL (0.0-1.1) 0.4 x10^3/uL (0.0-1.1) Eosinophils # (Auto) 0.0 x10^3/uL (0.0-0.7) 0.1 x10^3/uL (0.0-0.7) Basophils # (Auto) 0.0 x10^3/uL (0.0-0.2) 0.0 x10^3/uL (0.0-0.2) Urine Collection Type U cath Urine Color Yellow Urine Clarity Clear Urine pH 5.0 Urine Specific [place] >=1.030 Urine Protein 30 mg/dL (NEG-TRACE) Urine Glucose (UA) 250 mg/dL (NEG) Urine Ketones (Stick) 15 mg/dL (NEG) Urine Blood Moderate (NEG) Urine Nitrite Positive (NEG) Urine Bilirubin Small (NEG) Urine Urobilinogen Dipstick 1.0 mg/dL (0.2 mg/dL) Urine Leukocyte Esterase Small (NEG) Urine RBC 1-2 /HPF (0-2) Urine WBC 11-20 /HPF (0-4) Urine Bacteria Many /HPF (0-FEW) Urine Hyaline Casts Few /HPF Urine Mucus Mod /LPF Sodium Level 140 mmol/L (136-145) 140 mmol/L (136-145) Potassium Level 3.7 mmol/L (3.5-5.1) 3.7 mmol/L (3.5-5.1) Chloride Level 100 mmol/L (98-107) 104 mmol/L (98-107) Carbon Dioxide Level 30 mmol/L (21-32) 28 mmol/L (21-32) Anion Gap 10 (6-14) 8 (6-14) Blood Urea Nitrogen 20 mg/dL (7-20) 17 mg/dL (7-20) Creatinine 0.9 mg/dL (0.6-1.0) 0.7 mg/dL (0.6-1.0) Estimated GFR (Cockcroft-Gault) 73.7 98.4 BUN/Creatinine Ratio 22 (6-20) Glucose Level 206 mg/dL (70-99) 117 mg/dL (70-99) Lactic Acid Level 1.8 mmol/L (0.4-2.0) Calcium Level 9.6 mg/dL (8.5-10.1) 9.2 mg/dL (8.5-10.1) Total Bilirubin 0.6 mg/dL (0.2-1.0) Aspartate Amino Transf (AST/SGOT) 53 U/L (15-37) Alanine Aminotransferase (ALT/SGPT) 71 U/L (14-59) Alkaline Phosphatase 87 U/L (46-116) Total Protein 8.0 g/dL (6.4-8.2) Albumin 3.9 g/dL (3.4-5.0) Albumin/Globulin Ratio 1.0 (1.0-1.7) Glucose (Fingerstick) 138 mg/dL (70-99) 100 mg/dL (70-99) Triglycerides Level 44 mg/dL (0-150) Cholesterol Level 105 mg/dL (0-200) LDL Cholesterol, Calculated 53 mg/dL (0-100) VLDL Cholesterol, Calculated 9 mg/dL (0-40) Non-HDL Cholesterol Calculated 62 mg/dL (0-129) HDL Cholesterol 43 mg/dL (40-60) Cholesterol/HDL Ratio 2.4 Vitamin B12 Level 1217 pg/mL (247-911) 25-Hydroxy Vitamin D Total 40.9 ng/mL (30-100) Test 10/05/18 12:03 10/05/18 16:48 10/05/18 20:52 10/06/18 08:00 Glucose (Fingerstick) 192 mg/dL (70-99) 212 mg/dL (70-99) 222 mg/dL (70-99) 115 mg/dL (70-99) Laboratory Tests Test 10/05/18 12:03 10/05/18 16:48 10/05/18 20:52 10/06/18 08:00 Glucose (Fingerstick) 192 mg/dL (70-99) 212 mg/dL (70-99) 222 mg/dL (70-99) 115 mg/dL (70-99) Microbiology 10/04/18 Blood Culture - Preliminary, Resulted NO GROWTH AFTER 1 DAY Medications Current Medications Ondansetron HCl (Zofran) 4 mg PRN Q8HRS PRN IV NAUSEA/VOMITING; Start 10/04/18 at 15:30; Stop 10/05/18 at 15:29; Status DC Fentanyl Citrate (Fentanyl 2ml Vial) 50 mcg PRN Q1HR PRN IV PAIN; Start 10/04/18 at 15:30; Stop 10/05/18 at 15:29; Status DC Sodium Chloride 1,000 ml @ 100 mls/hr Q10H IV Last administered on 10/05/18at 21:20; Start 10/04/18 at 15:21; Stop 10/05/18 at 15:20; Status DC Ceftriaxone Sodium (Rocephin) 1 gm 1X ONCE IVP Last administered on 10/04/18at 15:58; Start 10/04/18 at 15:30; Stop 10/04/18 at 15:31; Status DC Enoxaparin Sodium (Lovenox 40mg Syringe) 40 mg Q24H SQ Last administered on 10/05/18at 21:20; Start 10/04/18 at 21:00 Losartan Potassium (Cozaar) 100 mg DAILY PO Last administered on 10/05/18at 09:31; Start 10/04/18 at 18:00 Folic Acid (Folic Acid) 1 mg DAILY PO Last administered on 10/05/18 09:32; Start 10/05/18 at 09:00 Oxycodone/ Acetaminophen (Percocet 7.5/ 325) 1 tab PRN BID PRN PO MODERATE- SEVERE PAIN Last administered on 10/05/18at 21:44; Start 10/04/18 at 17:30 Methotrexate (Rheumatrex) 10 mg WEEKLY PO ; Start 10/10/18 at 09:00 Metformin HCl (Glucophage) 1,000 mg BIDWMEALS PO Last administered on 10/05/18 09:32; Start 10/04/18 at 18:00 Gabapentin (Neurontin) 300 mg TID PO Last administered on 10/05/18 21:20; S tart 10/04/18 at 21:00 Amlodipine Besylate (Norvasc) 5 mg DAILY PO Last administered on 10/05/18 09:33; Start 10/04/18 at 18:00 Senna/Docusate Sodium (Senna Plus) 2 tab QHS PO Last administered on 10/05/18 21:20; Start 10/04/18 at 21:00 Ceftriaxone Sodium (Rocephin) 1 gm Q24H IVP ; Start 10/05/18 at 16:00 Acetaminophen (Tylenol) 650 mg PRN Q6HRS PRN PO MILD PAIN / TEMP Last adm inistered on 10/04/18at 18:25; Start 10/04/18 at 17:30 Sodium Chloride 1,000 ml @ 60 mls/hr [id number] IV ; Start 10/05/18 at 10:30; Stop 10/05/18 at 14:54; Status DC Active Scripts Active Reported Amlodipine Besylate 10 Mg Tablet 10 Mg PO DAILY Gabapentin (Gabapentin) 300 Mg Capsule 300 Mg PO TID Tylenol (Acetaminophen) 325 Mg Tablet 2 Tab PO PRN Q6HRS PRN Senna S Tablet (Sennosides/Docusate Sodium) 1 Each Tablet 1 Each PO Miralax (Polyethylene Glycol 3350) 17 Gm Powd.pack 1 Packet PO DAILY Zoloft (Sertraline Hcl) 50 Mg Tablet 50 Mg PO DAILY Oxycodon-Acetaminophen 7.5-325 (Oxycodone Hcl/Acetaminophen) 1 Each Tablet 1 Each PO PRN BID PRN Metformin Hcl 1,000 Mg Tablet 1,000 Mg PO BIDBFRMEAL Vitals/I & O Vital Sign - Last 24 Hours 10/05/18 10/05/18 10/05/18 10/05/18 09:31 09:33 10:08 11:00 Temp 97.9 97.9 Pulse 78 78 76 Resp 14 16 B/P (MAP) 148/45 148/45 156/49 (84) Pulse Ox 99 O2 Delivery Room Air 10/05/18 10/05/18 10/05/18 10/05/18 19:02 20:29 21:44 22:51 Temp 98.0 98.0 Pulse 86 Resp 20 18 18 B/P (MAP) 148/60 (89) Pulse Ox 100 100 100 O2 Delivery Room Air Room Air Room Air Room Air 10/05/18 10/06/18 10/06/18 23:22 03:11 07:00 Temp 97.4 99.2 98.7 97.4 99.2 98.7 Pulse 85 87 79 Resp 20 18 18 B/P (MAP) 149/57 (87) 161/ 145/59 (87) Pulse Ox 98 95 96 O2 Delivery Room Air Room Air Room Air Intake and Output 10/05/18 10/05/18 10/06/18 15:00 23:00 07:00 Intake Total 180 ml 0 ml 120 ml Output Total 100 ml Balance 180 ml -100 ml 120 ml BELLO SHEPPARD MD October 06, 2018 09:11
--- NOTE | 2018-10-06 10:40 | PDOC ---
PROGRESS NOTES Subjective Subjective vomited this morning. bladder distended. afebrile. discussed ct scan of c spine results Objective Objective Vital Signs Date Time Temp Pulse Resp B/P (MAP) Pulse Ox O2 Delivery O2 Flow Rate FiO2 10/06/18 07:00 98.7 79 18 145/59 (87) 96 Room Air 98.7 Intake and Output 10/06/18 06:59 Intake Total 300 ml Output Total 100 ml Balance 200 ml Intake Oral 300 ml Output Urine Total 100 ml # Voids 3 Physical Exam Abdomen: Soft Heart: Regular rate, Normal S1, Normal S2 Extremities: No edema General: Alert HEENT: Atraumatic Lungs: Clear to auscultation Neuro: Normal speech Psych/Mental Status: Mental status NL Skin: No rashes Assessment Assessment Problems1. Pyuria consistent with urinary tract infection. 2. Disuse myopathy. 3. 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 4. Diabetes mellitus type 2. 5. Hypertension. 6. Rheumatoid arthritis on methotrexate. 7. Immunosuppressed due to the methotrexate. vomited this morning Medical Problems: (1) Generalized weakness Status: Acute (2) UTI (lower urinary tract infection) Status: Acute Plan Plan of Care iv zofran prn PT and OT urine culture pending continue iv rocephin lab tomorrow screen for snf Comment Review of Relevant I have reviewed the following items shruthi (where applicable) has been applied. Labs Laboratory Tests Test 10/04/18 14:25 10/04/18 17:36 10/05/18 04:20 10/05/18 08:23 White Blood Count 4.3 x10^3/uL (4.0-11.0) 4.2 x10^3/uL (4.0-11.0) Red Blood Count 3.96 x10^6/uL (3.50-5.40) 3.61 x10^6/uL (3.50-5.40) Hemoglobin 11.8 g/dL (12.0-15.5) 10.8 g/dL (12.0-15.5) Hematocrit 35.9 % (36.0-47.0) 33.0 % (36.0-47.0) Mean Corpuscular Volume 91 fL (79-100) 92 fL (79-100) Mean Corpuscular Hemoglobin 30 pg (25-35) 30 pg (25-35) Mean Corpuscular Hemoglobin Concent 33 g/dL (31-37) 33 g/dL (31-37) Red Cell Distribution Width 14.4 % (11.5-14.5) 14.7 % (11.5-14.5) Platelet Count 182 x10^3/uL (140-400) 149 x10^3/uL (140-400) Neutrophils (%) (Auto) 62 % (31-73) 47 % (31-73) Lymphocytes (%) (Auto) 27 % (24-48) 40 % (24-48) Monocytes (%) (Auto) 11 % (0-9) 11 % (0-9) Eosinophils (%) (Auto) 1 % (0-3) 2 % (0-3) Basophils (%) (Auto) 0 % (0-3) 0 % (0-3) Neutrophils # (Auto) 2.7 x10^3uL (1.8-7.7) 2.0 x10^3uL (1.8-7.7) Lymphocytes # (Auto) 1.2 x10^3/uL (1.0-4.8) 1.7 x10^3/uL (1.0-4.8) Monocytes # (Auto) 0.5 x10^3/uL (0.0-1.1) 0.4 x10^3/uL (0.0-1.1) Eosinophils # (Auto) 0.0 x10^3/uL (0.0-0.7) 0.1 x10^3/uL (0.0-0.7) Basophils # (Auto) 0.0 x10^3/uL (0.0-0.2) 0.0 x10^3/uL (0.0-0.2) Urine Collection Type U cath Urine Color Yellow Urine Clarity Clear Urine pH 5.0 Urine Specific [place] >=1.030 Urine Protein 30 mg/dL (NEG-TRACE) Urine Glucose (UA) 250 mg/dL (NEG) Urine Ketones (Stick) 15 mg/dL (NEG) Urine Blood Moderate (NEG) Urine Nitrite Positive (NEG) Urine Bilirubin Small (NEG) Urine Urobilinogen Dipstick 1.0 mg/dL (0.2 mg/dL) Urine Leukocyte Esterase Small (NEG) Urine RBC 1-2 /HPF (0-2) Urine WBC 11-20 /HPF (0-4) Urine Bacteria Many /HPF (0-FEW) Urine Hyaline Casts Few /HPF Urine Mucus Mod /LPF Sodium Level 140 mmol/L (136-145) 140 mmol/L (136-145) Potassium Level 3.7 mmol/L (3.5-5.1) 3.7 mmol/L (3.5-5.1) Chloride Level 100 mmol/L (98-107) 104 mmol/L (98-107) Carbon Dioxide Level 30 mmol/L (21-32) 28 mmol/L (21-32) Anion Gap 10 (6-14) 8 (6-14) Blood Urea Nitrogen 20 mg/dL (7-20) 17 mg/dL (7-20) Creatinine 0.9 mg/dL (0.6-1.0) 0.7 mg/dL (0.6-1.0) Estimated GFR (Cockcroft-Gault) 73.7 98.4 BUN/Creatinine Ratio 22 (6-20) Glucose Level 206 mg/dL (70-99) 117 mg/dL (70-99) Lactic Acid Level 1.8 mmol/L (0.4-2.0) Calcium Level 9.6 mg/dL (8.5-10.1) 9.2 mg/dL (8.5-10.1) Total Bilirubin 0.6 mg/dL (0.2-1.0) Aspartate Amino Transf (AST/SGOT) 53 U/L (15-37) Alanine Aminotransferase (ALT/SGPT) 71 U/L (14-59) Alkaline Phosphatase 87 U/L (46-116) Total Protein 8.0 g/dL (6.4-8.2) Albumin 3.9 g/dL (3.4-5.0) Albumin/Globulin Ratio 1.0 (1.0-1.7) Glucose (Fingerstick) 138 mg/dL (70-99) 100 mg/dL (70-99) Triglycerides Level 44 mg/dL (0-150) Cholesterol Level 105 mg/dL (0-200) LDL Cholesterol, Calculated 53 mg/dL (0-100) VLDL Cholesterol, Calculated 9 mg/dL (0-40) Non-HDL Cholesterol Calculated 62 mg/dL (0-129) HDL Cholesterol 43 mg/dL (40-60) Cholesterol/HDL Ratio 2.4 Vitamin B12 Level 1217 pg/mL (247-911) 25-Hydroxy Vitamin D Total 40.9 ng/mL (30-100) Test 10/05/18 12:03 10/05/18 16:48 10/05/18 20:52 10/06/18 08:00 Glucose (Fingerstick) 192 mg/dL (70-99) 212 mg/dL (70-99) 222 mg/dL (70-99) 115 mg/dL (70-99) Laboratory Tests Test 10/05/18 12:03 10/05/18 16:48 10/05/18 20:52 10/06/18 08:00 Glucose (Fingerstick) 192 mg/dL (70-99) 212 mg/dL (70-99) 222 mg/dL (70-99) 115 mg/dL (70-99) Microbiology 10/04/18 Blood Culture - Preliminary, Resulted NO GROWTH AFTER 1 DAY Medications Current Medications Ondansetron HCl (Zofran) 4 mg PRN Q8HRS PRN IV NAUSEA/VOMITING; Start 10/04/18 at 15:30; Stop 10/05/18 at 15:29; Status DC Fentanyl Citrate (Fentanyl 2ml Vial) 50 mcg PRN Q1HR PRN IV PAIN; Start 10/04/18 at 15:30; Stop 10/05/18 at 15:29; Status DC Sodium Chloride 1,000 ml @ 100 mls/hr Q10H IV Last administered on 10/05/18at 21:20; Start 10/04/18 at 15:21; Stop 10/05/18 at 15:20; Status DC Ceftriaxone Sodium (Rocephin) 1 gm 1X ONCE IVP Last administered on 10/04/18at 15:58; Start 10/04/18 at 15:30; Stop 10/04/18 at 15:31; Status DC Enoxaparin Sodium (Lovenox 40mg Syringe) 40 mg Q24H SQ Last administered on 10/05/18at 21:20; Start 10/04/18 at 21:00 Losartan Potassium (Cozaar) 100 mg DAILY PO Last administered on 10/05/18at 09:31; Start 10/04/18 at 18:00 Folic Acid (Folic Acid) 1 mg DAILY PO Last administered on 10/05/18 09:32; Start 10/05/18 at 09:00 Oxycodone/ Acetaminophen (Percocet 7.5/ 325) 1 tab PRN BID PRN PO MODERATE- SEVERE PAIN Last administered on 10/05/18 21:44; Start 10/04/18 at 17:30 Methotrexate (Rheumatrex) 10 mg WEEKLY PO ; Start 10/10/18 at 09:00 Metformin HCl (Glucophage) 1,000 mg BIDWMEALS PO Last administered on 10/05/18 09:32; Start 10/04/18 at 18:00 Gabapentin (Neurontin) 300 mg TID PO Last administered on 10/05/18 21:20; Start 10/04/18 at 21:00 Amlodipine Besylate (Norvasc) 5 mg DAILY PO Last administered on 10/05/18 09:33; Start 10/04/18 at 18:00 Senna/Docusate Sodium (Senna Plus) 2 tab QHS PO Last administered on 10/05/18 21:20; Start 10/04/18 at 21:00 Ceftriaxone Sodium (Rocephin) 1 gm Q24H IVP ; Start 10/05/18 at 16:00 Acetaminophen (Tylenol) 650 mg PRN Q6HRS PRN PO MILD PAIN / TEMP Last administered on 10/04/18at 18:25; Start 10/04/18 at 17:30 Sodium Chloride 1,000 ml @ 60 mls/hr [id number] IV ; Start 10/05/18 at 10:30; Stop 10/05/18 at 14:54; Status DC Active Scripts Active Reported Amlodipine Besylate 10 Mg Tablet 10 Mg PO DAILY Gabapentin (Gabapentin) 300 Mg Capsule 300 Mg PO TID Tylenol (Acetaminophen) 325 Mg Tablet 2 Tab PO PRN Q6HRS PRN Senna S Tablet (Sennosides/Docusate Sodium) 1 Each Tablet 1 Each PO Miralax (Polyethylene Glycol 3350) 17 Gm Powd.pack 1 Packet PO DAILY Zoloft (Sertraline Hcl) 50 Mg Tablet 50 Mg PO DAILY Oxycodon-Acetaminophen 7.5-325 (Oxycodone Hcl/Acetaminophen) 1 Each Tablet 1 Each PO PRN BID PRN Metformin Hcl 1,000 Mg Tablet 1,000 Mg PO BIDBFRMEAL Vitals/I & O Vital Sign - Last 24 Hours 10/05/18 10/05/18 10/05/18 10/05/18 11:00 19:02 20:29 21:44 Temp 97.9 98.0 97.9 98.0 Pulse 76 86 Resp 16 20 18 B/P (MAP) 156/49 (84) 148/60 (89) Pulse Ox 99 100 100 O2 Delivery Room Air Room Air Room Air Room Air 10/05/18 10/05/18 10/06/18 10/06/18 22:51 23:22 03:11 07:00 Temp 97.4 99.2 98.7 97.4 99.2 98.7 Pulse 85 87 79 Resp 18 20 18 18 B/P (MAP) 149/57 (87) 161/ 145/59 (87) Pulse Ox 100 98 95 96 O2 Delivery Room Air Room Air Room Air Room Air Intake and Output 10/05/18 10/05/18 10/06/18 14:59 22:59 06:59 Intake Total 180 ml 0 ml 120 ml Output Total 100 ml Balance 180 ml -100 ml 120 ml DEVORA BOSCH MD October 06, 2018 10:40
[2018-10-06] MEDS ORDERED: ONDANSETRON PF 4 MG/2 ML VIAL. IV PRN (10:45)
[2018-10-06 11:00] VITALS: BP 141/96
[2018-10-06] MEDS: oxyCODONE/APAP 7.5/325 1 TAB TABLET PO PRN ×2 (11:43→20:44)
[2018-10-06] MEDS: GABAPENTIN 300 MG CAPSULE. PO SCH ×3 (13:02→20:44)
[2018-10-06] MEDS: FOLIC ACID 1 MG TABLET. PO SCH (13:03)
[2018-10-06] MEDS: amLODIPine BESYLATE 5 MG TABLET PO SCH (13:03)
[2018-10-06] MEDS: LOSARTAN POTASSIUM 50 MG TABLET. PO SCH (13:05)
[2018-10-06] MEDS: metFORMIN 500 MG TABLET PO SCH ×2 (13:05→17:43)
--- NOTE | 2018-10-06 13:32 | NUR ---
ARNAUD consulted for screen at [facility]. Chart reviewed and DAVID RN. PT/OT is pending. ARNAUD will await for PT/OT recommendation to assess dc needs. Addendum: 10/07/18 at 0831 by ROBERT LARES ARNAUD phoned and faxed referral to [facility] yesterday and left a VM to pt's daughter requesting a call back. Attempted to meet with pt but pt was lethargic. Pt's acceptance and admission pending.
--- NOTE | 2018-10-06 13:53 | NUR ---
AM meds: Pt had n/v when meds were due. Waited until n/v passed before admin meds.
[2018-10-06 15:00] VITALS: BP 184/82
[2018-10-06] MEDS ORDERED: cloNIDine HCL 0.1 MG TABLET PO PRN (15:30)
[2018-10-06] MEDS ORDERED: amLODIPine BESYLATE 5 MG TABLET PO ONE (16:00)
[2018-10-06] MEDS: ACETAMINOPHEN 325 MG TABLET. PO PRN (17:43)
[2018-10-06] MEDS: INSULIN LISPRO 300 UNITS/3 ML INSULN.PEN. SQ SCH (17:57)
[2018-10-06 19:00] VITALS: BP 124/65
[2018-10-06] MEDS: cefTRIAXone IV Push 1 GM VIAL. IVP SCH (20:43)
[2018-10-06] MEDS: CEFDINIR 300 MG CAPSULE PO SCH (20:44)
[2018-10-06] MEDS: ENOXAPARIN 40 MG/0.4 ML SYRINGE. SQ SCH (20:44)
[2018-10-06] MEDS: SENNOSIDES/DOCUSATE 8.6/50MG TABLET. PO SCH (20:45)
[2018-10-06 23:00] VITALS: BP 108/56
[2018-10-07 03:00] VITALS: BP 151/76
[2018-10-07 04:33] LABS: BASO % 0 % (0-3); EOS % 0 % (0-3); HEMATOCRIT 37.3 % (36.0-47.0); HEMOGLOBIN 12.3 g/dL (12.0-15.5); LYMPH # 1.4 x10^3/uL (1.0-4.8); LYMPH % 25 % (24-48); MEAN CORPUSCULAR HEMOGLOBIN 30 pg (25-35); MEAN CORPUSCULAR HGB CONC 33 g/dL (31-37); MEAN CORPUSCULAR VOLUME 92 fL (79-100); MONO # 0.6 x10^3/uL (0.0-1.1); MONO % 11 % (0-9); NEUT # 3.7 x10^3uL (1.8-7.7); NEUT % 65 % (31-73); PLATELET COUNT 177 x10^3/uL (140-400); RED BLOOD COUNT 4.07 x10^6/uL (3.50-5.40); RED CELL DISTRIBUTION WIDTH 14.6 % (11.5-14.5); WHITE BLOOD COUNT 5.7 x10^3/uL (4.0-11.0)
[2018-10-07 04:57] LABS: CALCIUM 9.6 mg/dL (8.5-10.1); CREATININE 1.2 mg/dL (0.6-1.0); GFR 52.9; POTASSIUM 3.4 mmol/L (3.5-5.1)
[2018-10-07 07:00] VITALS: BP 164/63
[2018-10-07] MEDS: metFORMIN 500 MG TABLET PO SCH (08:28)
[2018-10-07] MEDS: FOLIC ACID 1 MG TABLET. PO SCH (08:28)
[2018-10-07] MEDS: GABAPENTIN 300 MG CAPSULE. PO SCH ×2 (08:28→13:24)
[2018-10-07] MEDS: LOSARTAN POTASSIUM 50 MG TABLET. PO SCH (08:29)
[2018-10-07] MEDS: CEFDINIR 300 MG CAPSULE PO SCH (08:29)
[2018-10-07] MEDS: INSULIN LISPRO 300 UNITS/3 ML INSULN.PEN. SQ SCH ×2 (08:37→12:17)
--- NOTE | 2018-10-07 08:51 | NUR ---
SW following pt. Pt has been accepted at [facility] and facility will have a bed available upon dc. RN notified.
[2018-10-07] MEDS ORDERED: amLODIPine BESYLATE 10 MG TABLET PO SCH (09:00)
--- NOTE | 2018-10-07 09:40 | PDOC ---
PROGRESS NOTES Subjective Subjective No new complaints. Objective Objective Vital Signs Date Time Temp Pulse Resp B/P (MAP) Pulse Ox O2 Delivery O2 Flow Rate FiO2 10/07/18 08:29 102 164/63 10/07/18 07:00 98.8 19 93 Room Air 98.8 Intake and Output 10/07/18 06:59 Intake Total 240 ml Output Total 50 ml Balance 190 ml Intake Oral 240 ml Output Urine Total 50 ml # Voids 5 Physical Exam Physical Exam She is supine in bed with head end of bed propped up and she continues with stiffness of her neck and back and requires assistance with mobility and self care. Assessment Assessment Problems Medical Problems: (1) Generalized weakness Status: Acute (2) UTI (lower urinary tract infection) Status: Acute Plan Plan of Care To SNF when medically stable. Comment Review of Relevant I have reviewed the following items shruthi (where applicable) has been applied. Labs Laboratory Tests Test 10/05/18 12:03 10/05/18 16:48 10/05/18 20:52 10/06/18 08:00 Glucose (Fingerstick) 192 mg/dL (70-99) 212 mg/dL (70-99) 222 mg/dL (70-99) 115 mg/dL (70-99) Test 10/06/18 11:49 10/06/18 14:01 10/06/18 16:53 10/06/18 20:27 Glucose (Fingerstick) 262 mg/dL (70-99) 285 mg/dL (70-99) 261 mg/dL (70-99) 199 mg/dL (70-99) Test 10/07/18 03:25 10/07/18 07:32 White Blood Count 5.7 x10^3/uL (4.0-11.0) Red Blood Count 4.07 x10^6/uL (3.50-5.40) Hemoglobin 12.3 g/dL (12.0-15.5) Hematocrit 37.3 % (36.0-47.0) Mean Corpuscular Volume 92 fL (79-100) Mean Corpuscular Hemoglobin 30 pg (25-35) Mean Corpuscular Hemoglobin Concent 33 g/dL (31-37) Red Cell Distribution Width 14.6 % (11.5-14.5) Platelet Count 177 x10^3/uL (140-400) Neutrophils (%) (Auto) 65 % (31-73) Lymphocytes (%) (Auto) 25 % (24-48) Monocytes (%) (Auto) 11 % (0-9) Eosinophils (%) (Auto) 0 % (0-3) Basophils (%) (Auto) 0 % (0-3) Neutrophils # (Auto) 3.7 x10^3uL (1.8-7.7) Lymphocytes # (Auto) 1.4 x10^3/uL (1.0-4.8) Monocytes # (Auto) 0.6 x10^3/uL (0.0-1.1) Eosinophils # (Auto) 0.0 x10^3/uL (0.0-0.7) Basophils # (Auto) 0.0 x10^3/uL (0.0-0.2) Sodium Level 147 mmol/L (136-145) Potassium Level 3.4 mmol/L (3.5-5.1) Chloride Level 106 mmol/L (98-107) Carbon Dioxide Level 30 mmol/L (21-32) Anion Gap 11 (6-14) Blood Urea Nitrogen 20 mg/dL (7-20) Creatinine 1.2 mg/dL (0.6-1.0) Estimated GFR (Cockcroft-Gault) 52.9 Glucose Level 166 mg/dL (70-99) Calcium Level 9.6 mg/dL (8.5-10.1) Glucose (Fingerstick) 188 mg/dL (70-99) Laboratory Tests Test 10/06/18 11:49 10/06/18 14:01 10/06/18 16:53 10/06/18 20:27 Glucose (Fingerstick) 262 mg/dL (70-99) 285 mg/dL (70-99) 261 mg/dL (70-99) 199 mg/dL (70-99) Test 10/07/18 03:25 10/07/18 07:32 White Blood Count 5.7 x10^3/uL (4.0-11.0) Red Blood Count 4.07 x10^6/uL (3.50-5.40) Hemoglobin 12.3 g/dL (12.0-15.5) Hematocrit 37.3 % (36.0-47.0) Mean Corpuscular Volume 92 fL (79-100) Mean Corpuscular Hemoglobin 30 pg (25-35) Mean Corpuscular Hemoglobin Concent 33 g/dL (31-37) Red Cell Distribution Width 14.6 % (11.5-14.5) Platelet Count 177 x10^3/uL (140-400) Neutrophils (%) (Auto) 65 % (31-73) Lymphocytes (%) (Auto) 25 % (24-48) Monocytes (%) (Auto) 11 % (0-9) Eosinophils (%) (Auto) 0 % (0-3) Basophils (%) (Auto) 0 % (0-3) Neutrophils # (Auto) 3.7 x10^3uL (1.8-7.7) Lymphocytes # (Auto) 1.4 x10^3/uL (1.0-4.8) Monocytes # (Auto) 0.6 x10^3/uL (0.0-1.1) Eosinophils # (Auto) 0.0 x10^3/uL (0.0-0.7) Basophils # (Auto) 0.0 x10^3/uL (0.0-0.2) Sodium Level 147 mmol/L (136-145) Potassium Level 3.4 mmol/L (3.5-5.1) Chloride Level 106 mmol/L (98-107) Carbon Dioxide Level 30 mmol/L (21-32) Anion Gap 11 (6-14) Blood Urea Nitrogen 20 mg/dL (7-20) Creatinine 1.2 mg/dL (0.6-1.0) Estimated GFR (Cockcroft-Gault) 52.9 Glucose Level 166 mg/dL (70-99) Calcium Level 9.6 mg/dL (8.5-10.1) Glucose (Fingerstick) 188 mg/dL (70-99) Microbiology 10/04/18 Blood Culture - Preliminary, Resulted NO GROWTH AFTER 2 DAYS 10/04/18 Urine Culture - Final, Complete 10/04/18 Urine Culture Result 1 (SHAKIR) - Final, Complete 10/04/18 Antimicrobic Susceptibility - Final, Complete Medications Current Medications Ondansetron HCl (Zofran) 4 mg PRN Q8HRS PRN IV NAUSEA/VOMITING; Start 10/04/18 at 15:30; Stop 10/05/18 at 15:29; Status DC Fentanyl Citrate (Fentanyl 2ml Vial) 50 mcg PRN Q1HR PRN IV PAIN; Start 10/04/18 at 15:30; Stop 10/05/18 at 15:29; Status DC Sodium Chloride 1,000 ml @ 100 mls/hr Q10H IV Last administered on 10/05/18 21:20; Start 10/04/18 at 15:21; Stop 10/05/18 at 15:20; Status DC Ceftriaxone Sodium (Rocephin) 1 gm 1X ONCE IVP Last administered on 10/04/18 15:58; Start 10/04/18 at 15:30; Stop 10/04/18 at 15:31; Status DC Enoxaparin Sodium (Lovenox 40mg Syringe) 40 mg Q24H SQ Last administered on 10/06/18 20:44; Start 10/04/18 at 21:00 Losartan Potassium (Cozaar) 100 mg DAILY PO Last administered on 10/07/18 08:29; Start 10/04/18 at 18:00 Folic Acid (Folic Acid) 1 mg DAILY PO Last administered on 10/07/18 08:28; Start 10/05/18 at 09:00 Oxycodone/ Acetaminophen (Percocet 7.5/ 325) 1 tab PRN BID PRN PO MODERATE- SEVERE PAIN Last administered on 10/06/18 20:44; Start 10/04/18 at 17:30 Methotrexate (Rheumatrex) 10 mg WEEKLY PO ; Start 10/10/18 at 09:00 Metformin HCl (Glucophage) 1,000 mg BIDWMEALS PO Last administered on 10/07/18 08:28; Start 10/04/18 at 18:00 Gabapentin (Neurontin) 300 mg TID PO Last administered on 10/07/18 08:28; Start 10/04/18 at 21:00 Amlodipine Besylate (Norvasc) 5 mg DAILY PO Last administered on 10/06/18 13:03; Start 10/04/18 at 18:00; Stop 10/06/18 at 15:39; Status DC Senna/Docusate Sodium (Senna Plus) 2 tab QHS PO Last administered on 10/06/18 20:45; Start 10/04/18 at 21:00 Ceftriaxone Sodium (Rocephin) 1 gm Q24H IVP Last administered on 10/06/18at 20:43; Start 10/05/18 at 16:00; Stop 10/06/18 at 23:00; Status DC Acetaminophen (Tylenol) 650 mg PRN Q6HRS PRN PO MILD PAIN / TEMP Last administered on 10/06/18at 17:43; Start 10/04/18 at 17:30 Sodium Chloride 1,000 ml @ 60 mls/hr [id number] IV ; Start 10/05/18 at 10:30; Stop 10/05/18 at 14:54; Status DC Ondansetron HCl (Zofran) 4 mg PRN Q6HRS PRN IV NAUSEA/VOMITING Last administered on 10/06/18at 11:05; Start 10/06/18 at 10:45 Cefdinir (Omnicef) 300 mg BID PO Last administered on 10/07/18 08:29; Start 10/06/18 at 21:00 Amlodipine Besylate (Norvasc) 5 mg 1X ONCE PO Last administered on 10/06/18at 15:46; Start 10/06/18 at 16:00; Stop 10/06/18 at 16:01; Status DC Amlodipine Besylate (Norvasc) 10 mg DAILY PO Last administered on 10/07/18at 08:29; Start 10/07/18 at 09:00 Clonidine HCl (Catapres) 0.1 mg PRN Q6HRS PRN PO HYPERTENSION, SEE COMMENTS; Start 10/06/18 at 15:30 Insulin Human Lispro (HumaLOG) 0-6 UNITS BG 300-39... TIDWMEALS SQ Last administered on 10/07/18at 08:37; Start 10/06/18 at 17:00 Active Scripts Active Reported Amlodipine Besylate 10 Mg Tablet 10 Mg PO DAILY Gabapentin (Gabapentin) 300 Mg Capsule 300 Mg PO TID Tylenol (Acetaminophen) 325 Mg Tablet 2 Tab PO PRN Q6HRS PRN Senna S Tablet (Sennosides/Docusate Sodium) 1 Each Tablet 1 Each PO Miralax (Polyethylene Glycol 3350) 17 Gm Powd.pack 1 Packet PO DAILY Zoloft (Sertraline Hcl) 50 Mg Tablet 50 Mg PO DAILY Oxycodon-Acetaminophen 7.5-325 (Oxycodone Hcl/Acetaminophen) 1 Each Tablet 1 Each PO PRN BID PRN Metformin Hcl 1,000 Mg Tablet 1,000 Mg PO BIDBFRMEAL Vitals/I & O Vital Sign - Last 24 Hours 10/06/18 10/06/18 10/06/18 10/06/18 11:00 11:43 13:03 13:05 Temp 98.4 98.4 Pulse 80 80 80 Resp 19 B/P (MAP) 141/96 (111) 141/96 141/96 Pulse Ox 97 O2 Delivery Room Air Room Air 10/06/18 10/06/18 10/06/18 10/06/18 15:00 15:46 19:00 20:15 Temp 99.4 98.4 99.4 98.4 Pulse 103 103 94 Resp 19 16 B/P (MAP) 184/82 (116) 184/82 124/65 (84) Pulse Ox 92 95 O2 Delivery Room Air Room Air Room Air 10/06/18 10/06/18 10/06/18 10/07/18 20:44 21:51 23:00 03:00 Temp 97.8 98.4 97.8 98.4 Pulse 86 90 Resp 18 18 14 14 B/P (MAP) 108/56 (73) 151/76 (101) Pulse Ox 92 92 95 98 O2 Delivery Room Air Room Air Room Air Room Air 10/07/18 10/07/18 10/07/18 07:00 08:29 08:29 Temp 98.8 98.8 Pulse 102 102 102 Resp 19 B/P (MAP) 164/63 (96) 164/63 164/63 Pulse Ox 93 O2 Delivery Room Air Intake and Output 10/06/18 10/06/18 10/07/18 14:59 22:59 06:59 Intake Total 120 ml 120 ml Output Total 50 ml Balance 120 ml -50 ml 120 ml BELLO SHEPPARD MD October 07, 2018 09:40
[2018-10-07 11:00] VITALS: BP 181/85
--- NOTE | 2018-10-07 11:11 | PDOC2 ---
YAIRROMEO Seven SINGH 10/07/18 1111: UROLOGY CONSULT Date of Consult Date of Consult DATE: 10/07/18 TIME: 11:06 Reason for Consult Reason for Consult: Urinary Retention Identification/Chief Complaint Chief Complaint Urinary Retention Source Source: Chart review, Patient History of Present Illness Reason for Visit: This 78 year old female presented through EMS for decreased LOC, weakness and an inability to walk at home per her daughter. She complained of some dysuria on arrival, but deneis this currently. She also denies hematuria or abd/flank pain. She does have some trouble emptying her bladder however. Attending RN related that she has been straight cathed twice; the first time they got 900 out, the s econd time, 1300 cc of urine came out. . The patient is a very poor historian, but per medical team she has had problems with urinary retention multiple times on previous admissions. Past Medical History Cardiovascular: HTN Pulmonary: No pertinent hx CENTRAL NERVOUS SYSTEM: Other GI: No pertinent hx Hepatobiliary: No pertinent hx Psych: No pertinent hx Musculoskeletal: Osteoarthritis Rheumatologic: Rheumatoid arthritis Infectious disease: No pertinent hx Renal/: Urinary Incontinence Endocrine: Diabetes Past Surgical History Past Surgical History: Appendectomy, Tonsillectomy, Hysterectomy Social History ALCOHOL: none Drugs: None Lives: with Family Domestic Violence: Neg Current Medications Current Medications Current Medications Amlodipine Besylate (Norvasc) 5 mg 1X ONCE PO Last administered on 10/06/18at 15:46; Start 10/06/18 at 16:00; Stop 10/06/18 at 16:01; Status DC Amlodipine Besylate (Norvasc) 10 mg DAILY PO Last administered on 10/07/18at 08:29; Start 10/07/18 at 09:00 Cefdinir (Omnicef) 300 mg BID PO Last administered on 10/07/18at 08:29; Start 10/06/18 at 21:00 Clonidine HCl (Catapres) 0.1 mg PRN Q6HRS PRN PO HYPERTENSION, SEE COMMENTS; Start 10/06/18 at 15:30 Insulin Human Lispro (HumaLOG) 0-6 UNITS BG 300-39... TIDWMEALS SQ Last administered on 10/07/18at 08:37; Start 10/06/18 at 17:00 Methotrexate (Rheumatrex) 10 mg WEEKLY PO ; Start 10/10/18 at 09:00 Allergies Allergies: Coded Allergies: No Known Drug Allergies (Unverified , 09/28/14) ROS Review Of Systems: CONSTITUTIONAL: No fever or chills EYES: No recent changes SKIN: No rash or itching CARDIOVASCULAR: No chest pain, syncope, palpitations, or edema RESPIRATORY: No SOB or cough GASTROINTESTINAL: No nausea, vomiting or abdominal pain NEUROLOGICAL: No headaches or weakness ENDOCRINE: No cold or heat intolerance GENITOURINARY: + retention, no hematuria/dysuria MUSCULOSKELETAL: + chronic back pain LYMPHATICS: No enlarged lymph nodes PSYCHIATRIC: No anxiety or depression Physical Exam Physical Exam: General: Pleasant, no acute distress, well groomed Eyes: conjunctiva anicteric, eyes full range of motion ENT: moist oral mucosa, normal dentition Neck: Trachea midline, no masses Respiratory: unlabored breathing, not using accessory muscles, Abdomen: nontender, nondistended, abd hernia noted on exam. Psych: cooperative, pleasant. Alert and Oriented times three. Vitals VITALS Vital Signs Date Time Temp Pulse Resp B/P (MAP) Pulse Ox O2 Delivery O2 Flow Rate FiO2 10/07/18 08:29 102 164/63 10/07/18 08:00 Room Air 10/07/18 07:00 98.8 19 93 98.8 Labs Labs Laboratory Tests Test 10/05/18 12:03 10/05/18 16:48 10/05/18 20:52 10/06/18 08:00 Glucose (Fingerstick) 192 mg/dL (70-99) 212 mg/dL (70-99) 222 mg/dL (70-99) 115 mg/dL (70-99) Test 10/06/18 11:49 10/06/18 14:01 10/06/18 16:53 10/06/18 20:27 Glucose (Fingerstick) 262 mg/dL (70-99) 285 mg/dL (70-99) 261 mg/dL (70-99) 199 mg/dL (70-99) Test 10/07/18 03:25 10/07/18 07:32 10/07/18 10:29 White Blood Count 5.7 x10^3/uL (4.0-11.0) Red Blood Count 4.07 x10^6/uL (3.50-5.40) Hemoglobin 12.3 g/dL (12.0-15.5) Hematocrit 37.3 % (36.0-47.0) Mean Corpuscular Volume 92 fL (79-100) Mean Corpuscular Hemoglobin 30 pg (25-35) Mean Corpuscular Hemoglobin Concent 33 g/dL (31-37) Red Cell Distribution Width 14.6 % (11.5-14.5) Platelet Count 177 x10^3/uL (140-400) Neutrophils (%) (Auto) 65 % (31-73) Lymphocytes (%) (Auto) 25 % (24-48) Monocytes (%) (Auto) 11 % (0-9) Eosinophils (%) (Auto) 0 % (0-3) Basophils (%) (Auto) 0 % (0-3) Neutrophils # (Auto) 3.7 x10^3uL (1.8-7.7) Lymphocytes # (Auto) 1.4 x10^3/uL (1.0-4.8) Monocytes # (Auto) 0.6 x10^3/uL (0.0-1.1) Eosinophils # (Auto) 0.0 x10^3/uL (0.0-0.7) Basophils # (Auto) 0.0 x10^3/uL (0.0-0.2) Sodium Level 147 mmol/L (136-145) Potassium Level 3.4 mmol/L (3.5-5.1) Chloride Level 106 mmol/L (98-107) Carbon Dioxide Level 30 mmol/L (21-32) Anion Gap 11 (6-14) Blood Urea Nitrogen 20 mg/dL (7-20) Creatinine 1.2 mg/dL (0.6-1.0) Estimated GFR (Cockcroft-Gault) 52.9 Glucose Level 166 mg/dL (70-99) Calcium Level 9.6 mg/dL (8.5-10.1) Glucose (Fingerstick) 188 mg/dL (70-99) 180 mg/dL (70-99) Laboratory Tests Test 10/06/18 11:49 10/06/18 14:01 10/06/18 16:53 10/06/18 20:27 Glucose (Fingerstick) 262 mg/dL (70-99) 285 mg/dL (70-99) 261 mg/dL (70-99) 199 mg/dL (70-99) Test 10/07/18 03:25 10/07/18 07:32 10/07/18 10:29 White Blood Count 5.7 x10^3/uL (4.0-11.0) Red Blood Count 4.07 x10^6/uL (3.50-5.40) Hemoglobin 12.3 g/dL (12.0-15.5) Hematocrit 37.3 % (36.0-47.0) Mean Corpuscular Volume 92 fL (79-100) Mean Corpuscular Hemoglobin 30 pg (25-35) Mean Corpuscular Hemoglobin Concent 33 g/dL (31-37) Red Cell Distribution Width 14.6 % (11.5-14.5) Platelet Count 177 x10^3/uL (140-400) Neutrophils (%) (Auto) 65 % (31-73) Lymphocytes (%) (Auto) 25 % (24-48) Monocytes (%) (Auto) 11 % (0-9) Eosinophils (%) (Auto) 0 % (0-3) Basophils (%) (Auto) 0 % (0-3) Neutrophils # (Auto) 3.7 x10^3uL (1.8-7.7) Lymphocytes # (Auto) 1.4 x10^3/uL (1.0-4.8) Monocytes # (Auto) 0.6 x10^3/uL (0.0-1.1) Eosinophils # (Auto) 0.0 x10^3/uL (0.0-0.7) Basophils # (Auto) 0.0 x10^3/uL (0.0-0.2) Sodium Level 147 mmol/L (136-145) Potassium Level 3.4 mmol/L (3.5-5.1) Chloride Level 106 mmol/L (98-107) Carbon Dioxide Level 30 mmol/L (21-32) Anion Gap 11 (6-14) Blood Urea Nitrogen 20 mg/dL (7-20) Creatinine 1.2 mg/dL (0.6-1.0) Estimated GFR (Cockcroft-Gault) 52.9 Glucose Level 166 mg/dL (70-99) Calcium Level 9.6 mg/dL (8.5-10.1) Glucose (Fingerstick) 188 mg/dL (70-99) 180 mg/dL (70-99) Assessment/Plan Assessment/Plan Urinary Retention: We will place an indwelling Yao catheter. She may discharge to [facility] facility whenever medical team is ready with device in place. Recommend good bowel program. A follow up appointment has been arranged for patient for voiding trial with Dr. Carmona of [facility] [place]14/[place] at 1120 am. Discussed above with attending RN. ANGELICA CARMONA MD 10/07/18 1553: UROLOGY CONSULT Assessment/Plan Assessment/Plan Patient seen and examined. Will try to pass ureteral stone. Agree with assessment and plan. ROMEO MAZARIEGOS APRN October 07, 2018 11:11 ANGELICA CARMONA MD October 07, 2018 15:53
--- NOTE | 2018-10-07 12:51 | PDOC ---
PROGRESS NOTES Subjective Subjective urine culture grew klebsiella taking omnicef. bp is high and will start hydralazine. Objective Objective Vital Signs Date Time Temp Pulse Resp B/P (MAP) Pulse Ox O2 Delivery O2 Flow Rate FiO2 10/07/18 11:00 97.7 100 19 181/85 (117) 95 Room Air 97.7 Intake and Output 10/07/18 06:59 Intake Total 240 ml Output Total 50 ml Balance 190 ml Intake Oral 240 ml Output Urine Total 50 ml # Voids 5 Physical Exam Abdomen: Soft Heart: Regular rate, Normal S1, Normal S2 Extremities: No edema General: Alert HEENT: Atraumatic Lungs: Clear to auscultation Neuro: Normal speech Psych/Mental Status: Mental status NL Skin: No rashes Assessment Assessment Problems. klebsiella uti 2. Disuse myopathy. 4. Diabetes mellitus type 2. 5. Hypertension. 6. Rheumatoid arthritis on methotrexate. 7. Immunosuppressed due to the methotrexate. Medical Problems: (1) Generalized weakness Status: Acute (2) UTI (lower urinary tract infection) Status: Acute Plan Plan of Care dismiss to snf PT and OT continue metformin and insulin sliding scale start hydralazine and continue amlodipine and losartan Comment Review of Relevant I have reviewed the following items shruthi (where applicable) has been applied. Labs Laboratory Tests Test 10/05/18 16:48 10/05/18 20:52 10/06/18 08:00 10/06/18 11:49 Glucose (Fingerstick) 212 mg/dL (70-99) 222 mg/dL (70-99) 115 mg/dL (70-99) 262 mg/dL (70-99) Test 10/06/18 14:01 10/06/18 16:53 10/06/18 20:27 10/07/18 03:25 Glucose (Fingerstick) 285 mg/dL (70-99) 261 mg/dL (70-99) 199 mg/dL (70-99) White Blood Count 5.7 x10^3/uL (4.0-11.0) Red Blood Count 4.07 x10^6/uL (3.50-5.40) Hemoglobin 12.3 g/dL (12.0-15.5) Hematocrit 37.3 % (36.0-47.0) Mean Corpuscular Volume 92 fL (79-100) Mean Corpuscular Hemoglobin 30 pg (25-35) Mean Corpuscular Hemoglobin Concent 33 g/dL (31-37) Red Cell Distribution Width 14.6 % (11.5-14.5) Platelet Count 177 x10^3/uL (140-400) Neutrophils (%) (Auto) 65 % (31-73) Lymphocytes (%) (Auto) 25 % (24-48) Monocytes (%) (Auto) 11 % (0-9) Eosinophils (%) (Auto) 0 % (0-3) Basophils (%) (Auto) 0 % (0-3) Neutrophils # (Auto) 3.7 x10^3uL (1.8-7.7) Lymphocytes # (Auto) 1.4 x10^3/uL (1.0-4.8) Monocytes # (Auto) 0.6 x10^3/uL (0.0-1.1) Eosinophils # (Auto) 0.0 x10^3/uL (0.0-0.7) Basophils # (Auto) 0.0 x10^3/uL (0.0-0.2) Sodium Level 147 mmol/L (136-145) Potassium Level 3.4 mmol/L (3.5-5.1) Chloride Level 106 mmol/L (98-107) Carbon Dioxide Level 30 mmol/L (21-32) Anion Gap 11 (6-14) Blood Urea Nitrogen 20 mg/dL (7-20) Creatinine 1.2 mg/dL (0.6-1.0) Estimated GFR (Cockcroft-Gault) 52.9 Glucose Level 166 mg/dL (70-99) Calcium Level 9.6 mg/dL (8.5-10.1) Test 10/07/18 07:32 10/07/18 10:29 Glucose (Fingerstick) 188 mg/dL (70-99) 180 mg/dL (70-99) Laboratory Tests Test 10/06/18 14:01 10/06/18 16:53 10/06/18 20:27 10/07/18 03:25 Glucose (Fingerstick) 285 mg/dL (70-99) 261 mg/dL (70-99) 199 mg/dL (70-99) White Blood Count 5.7 x10^3/uL (4.0-11.0) Red Blood Count 4.07 x10^6/uL (3.50-5.40) Hemoglobin 12.3 g/dL (12.0-15.5) Hematocrit 37.3 % (36.0-47.0) Mean Corpuscular Volume 92 fL (79-100) Mean Corpuscular Hemoglobin 30 pg (25-35) Mean Corpuscular Hemoglobin Concent 33 g/dL (31-37) Red Cell Distribution Width 14.6 % (11.5-14.5) Platelet Count 177 x10^3/uL (140-400) Neutrophils (%) (Auto) 65 % (31-73) Lymphocytes (%) (Auto) 25 % (24-48) Monocytes (%) (Auto) 11 % (0-9) Eosinophils (%) (Auto) 0 % (0-3) Basophils (%) (Auto) 0 % (0-3) Neutrophils # (Auto) 3.7 x10^3uL (1.8-7.7) Lymphocytes # (Auto) 1.4 x10^3/uL (1.0-4.8) Monocytes # (Auto) 0.6 x10^3/uL (0.0-1.1) Eosinophils # (Auto) 0.0 x10^3/uL (0.0-0.7) Basophils # (Auto) 0.0 x10^3/uL (0.0-0.2) Sodium Level 147 mmol/L (136-145) Potassium Level 3.4 mmol/L (3.5-5.1) Chloride Level 106 mmol/L (98-107) Carbon Dioxide Level 30 mmol/L (21-32) Anion Gap 11 (6-14) Blood Urea Nitrogen 20 mg/dL (7-20) Creatinine 1.2 mg/dL (0.6-1.0) Estimated GFR (Cockcroft-Gault) 52.9 Glucose Level 166 mg/dL (70-99) Calcium Level 9.6 mg/dL (8.5-10.1) Test 10/07/18 07:32 10/07/18 10:29 Glucose (Fingerstick) 188 mg/dL (70-99) 180 mg/dL (70-99) Microbiology 10/04/18 Blood Culture - Preliminary, Resulted NO GROWTH AFTER 2 DAYS 10/04/18 Urine Culture - Final, Complete 10/04/18 Urine Culture Result 1 (SHAKIR) - Final, Complete 10/04/18 Antimicrobic Susceptibility - Final, Complete Medications Current Medications Ondansetron HCl (Zofran) 4 mg PRN Q8HRS PRN IV NAUSEA/VOMITING; Start 10/04/18 at 15:30; Stop 10/05/18 at 15:29; Status DC Fentanyl Citrate (Fentanyl 2ml Vial) 50 mcg PRN Q1HR PRN IV PAIN; Start 10/04/18 at 15:30; Stop 10/05/18 at 15:29; Status DC Sodium Chloride 1,000 ml @ 100 mls/hr Q10H IV Last administered on 10/05/18at 21:20; Start 10/04/18 at 15:21; Stop 10/05/18 at 15:20; Status DC Ceftriaxone Sodium (Rocephin) 1 gm 1X ONCE IVP Last administered on 10/04/18at 15:58; Start 10/04/18 at 15:30; Stop 10/04/18 at 15:31; Status DC Enoxaparin Sodium (Lovenox 40mg Syringe) 40 mg Q24H SQ Last administered on 10/06/18at 20:44; Start 10/04/18 at 21:00 Losartan Potassium (Cozaar) 100 mg DAILY PO Last administered on 10/07/18 08:29; Start 10/04/18 at 18:00 Folic Acid (Folic Acid) 1 mg DAILY PO Last administered on 10/07/18at 08:28; Start 10/05/18 at 09:00 Oxycodone/ Acetaminophen (Percocet 7.5/ 325) 1 tab PRN BID PRN PO MODERATE- SEVERE PAIN Last administered on 10/06/18at 20:44; Start 10/04/18 at 17:30 Methotrexate (Rheumatrex) 10 mg WEEKLY PO ; Start 10/10/18 at 09:00 Metformin HCl (Glucophage) 1,000 mg BIDWMEALS PO Last administered on 10/07/18 08:28; Start 10/04/18 at 18:00 Gabapentin (Neurontin) 300 mg TID PO Last administered on 10/07/18at 08:28; Start 10/04/18 at 21:00 Amlodipine Besylate (Norvasc) 5 mg DAILY PO Last administered on 10/06/18 13:03; Start 10/04/18 at 18:00; Stop 10/06/18 at 15:39; Status DC Senna/Docusate Sodium (Senna Plus) 2 tab QHS PO Last administered on 10/06/18at 20:45; Start 10/04/18 at 21:00 Ceftriaxone Sodium (Rocephin) 1 gm Q24H IVP Last administered on 10/06/18at 20:43; Start 10/05/18 at 16:00; Stop 10/06/18 at 23:00; Status DC Acetaminophen (Tylenol) 650 mg PRN Q6HRS PRN PO MILD PAIN / TEMP Last administered on 10/06/18 17:43; Start 10/04/18 at 17:30 Sodium Chloride 1,000 ml @ 60 mls/hr [id number] IV ; Start 10/05/18 at 10:30; Stop 10/05/18 at 14:54; Status DC Ondansetron HCl (Zofran) 4 mg PRN Q6HRS PRN IV NAUSEA/VOMITING Last administered on 10/06/18at 11:05; Start 10/06/18 at 10:45 Cefdinir (Omnicef) 300 mg BID PO Last administered on 10/07/18 08:29; Start 10/06/18 at 21:00 Amlodipine Besylate (Norvasc) 5 mg 1X ONCE PO Last administered on 10/06/18at 15:46; Start 10/06/18 at 16:00; Stop 10/06/18 at 16:01; Status DC Amlodipine Besylate (Norvasc) 10 mg DAILY PO Last administered on 10/07/18at 08:29; Start 10/07/18 at 09:00 Clonidine HCl (Catapres) 0.1 mg PRN Q6HRS PRN PO HYPERTENSION, SEE COMMENTS; Start 10/06/18 at 15:30 Insulin Human Lispro (HumaLOG) 0-6 UNITS BG 300-39... TIDWMEALS SQ Last administered on 10/07/18at 12:17; Start 10/06/18 at 17:00 Active Scripts Active Reported Amlodipine Besylate 10 Mg Tablet 10 Mg PO DAILY Gabapentin (Gabapentin) 300 Mg Capsule 300 Mg PO TID Tylenol (Acetaminophen) 325 Mg Tablet 2 Tab PO PRN Q6HRS PRN Senna S Tablet (Sennosides/Docusate Sodium) 1 Each Tablet 1 Each PO Miralax (Polyethylene Glycol 3350) 17 Gm Powd.pack 1 Packet PO DAILY Zoloft (Sertraline Hcl) 50 Mg Tablet 50 Mg PO DAILY Oxycodon-Acetaminophen 7.5-325 (Oxycodone Hcl/Acetaminophen) 1 Each Tablet 1 Each PO PRN BID PRN Metformin Hcl 1,000 Mg Tablet 1,000 Mg PO BIDBFRMEAL Vitals/I & O Vital Sign - Last 24 Hours 10/06/18 10/06/18 10/06/18 10/06/18 13:03 13:05 15:00 15:46 Temp 99.4 99.4 Pulse 80 80 103 103 Resp 19 B/P (MAP) 141/96 141/96 184/82 (116) 184/82 Pulse Ox 92 O2 Delivery Room Air 10/06/18 10/06/18 10/06/18 10/06/18 19:00 20:15 20:44 21:51 Temp 98.4 98.4 Pulse 94 Resp 16 18 18 B/P (MAP) 124/65 (84) Pulse Ox 95 92 92 O2 Delivery Room Air Room Air Room Air Room Air 10/06/18 10/07/18 10/07/18 10/07/18 23:00 03:00 07:00 08:00 Temp 97.8 98.4 98.8 97.8 98.4 98.8 Pulse 86 90 102 Resp 14 14 19 B/P (MAP) 108/56 (73) 151/76 (101) 164/63 (96) Pulse Ox 95 98 93 O2 Delivery Room Air Room Air Room Air Room Air 10/07/18 10/07/18 10/07/18 08:29 08:29 11:00 Temp 97.7 97.7 Pulse 102 102 100 Resp 19 B/P (MAP) 164/63 164/63 181/85 (117) Pulse Ox 95 O2 Delivery Room Air Intake and Output 10/06/18 10/06/18 10/07/18 14:59 22:59 06:59 Intake Total 120 ml 120 ml Output Total 50 ml Balance 120 ml -50 ml 120 ml DEVORA BOSCH MD October 07, 2018 12:51
[2018-10-07] MEDS ORDERED: CEFD300C PO (12:59)
[2018-10-07] MEDS ORDERED: SENN-22 PO (12:59)
[2018-10-07] MEDS ORDERED: HYDR-2868 PO (12:59)
[2018-10-07] MEDS ORDERED: INSU100I11 SQ (12:59)
[2018-10-07] MEDS ORDERED: METH2.5T PO (12:59)
[2018-10-07] MEDS ORDERED: FOLI1TAB16 PO (12:59)
[2018-10-07] MEDS ORDERED: LOSA-73 PO (12:59)
--- NOTE | 2018-10-07 13:00 | SNU/HH DC ---
DISCHARGE ORDERS DISCHARGE INFORMATION: DISCHARGE DATE: October 07, 2018 FINAL DIAGNOSIS Problems Medical Problems: (1) Generalized weakness Status: Acute (2) UTI (lower urinary tract infection) Status: Acute CONDITION ON DISCHARGE: Stable CODE STATUS: Code Status: Full CORRECTION: SNF STAY <30 DAYS: Yes POST DISCHARGE ORDERS: ACTIVITY ORDERS: Resume previous activity DIET AFTER DISCHARGE: ADA WOUND/INCISION CARE: Change dressing FOLLOW-UP: PHYSICIAN FOLLOW-UP: dr bosch after dismissal from snf TREATMENT/EQUIPMENT ORDERS: Physical Therapy For: Evalulation/Treatment DISCHARGE MEDICATIONS: Home Meds Active Scripts Insulin Lispro (HUMALOG) 100 Unit/1 Ml Insuln.pen, 0 UNITS SQ TIDWMEALS for diabetes, #1 EACH Prov:DEVORA BOSCH MD 10/07/18 Folic Acid (FOLIC ACID) 1 Mg Tablet, 1 MG PO DAILY for takes methotrexate, #30 TAB Prov:DEVORA BOSCH MD 10/07/18 Sennosides/Docusate Sodium (SENNA-TIME S TABLET) 1 Each Tablet, 2 TAB PO QHS for constipation, #60 TAB Prov:DEVORA BOSCH MD 10/07/18 Losartan Potassium (COZAAR ) 50 Mg Tablet, 100 MG PO DAILY for HTN, #30 TAB Prov:DEVORA BOSCH MD 10/07/18 Hydralazine Hcl (HYDRALAZINE HCL) 25 Mg Tablet, 25 MG PO TID for HTN, #90 TAB Prov:DEVORA BOSCH MD 10/07/18 Methotrexate Sodium (METHOTREXATE) 2.5 Mg Tablet, 10 MG PO WEEKLY for RA, #4 TAB Prov:DEVORA BOSCH MD 10/07/18 Cefdinir (CEFDINIR) 300 Mg Capsule, 300 MG PO BID for uti, #8 CAP Prov:DEVORA BOSCH MD 10/07/18 Reported Medications Amlodipine Besylate (AMLODIPINE BESYLATE) 10 Mg Tablet, 10 MG PO DAILY for HYPERTENSION 10/04/18 Gabapentin (GABAPENTIN ) 300 Mg Capsule, 300 MG PO TID for NEUROGENIC PAIN, CAP 10/04/18 Acetaminophen (TYLENOL) 325 Mg Tablet, 2 TAB PO PRN Q6HRS PRN for PAIN, #30 TAB 01/09/16 Sennosides/Docusate Sodium (SENNA S TABLET) 1 Each Tablet, 1 EACH PO 4/20/15 Polyethylene Glycol 3350 (MIRALAX) 17 Gm Powd.pack, 1 PACKET PO DAILY, #2 PACKET 1 Refill 09/25/14 Sertraline Hcl (ZOLOFT) 50 Mg Tablet, 50 MG PO DAILY 05/12/13 Oxycodone Hcl/Acetaminophen (OXYCODON-ACETAMINOPHEN 7.5-325) 1 Each Tablet, 1 EACH PO PRN BID PRN for PAIN 05/12/13 Metformin Hcl (METFORMIN HCL) 1,000 Mg Tablet, 1000 MG PO BIDBFRMEAL 05/12/13 DEVORA BOSCH MD October 07, 2018 13:00
--- NOTE | 2018-10-07 13:06 | PDOC ---
Provider Note Provider Note discharge summary dictated # [id number] DEVORA BOSCH MD October 07, 2018 13:06
[2018-10-07 13:24] VITALS: BP 181/85
[2018-10-07] MEDS ORDERED: POLYETHYLENE GLYCOL 3350 17 GM PACKET. PO SCH (14:00)
[2018-10-07] MEDS ORDERED: hydrALAZINE 25 MG TABLET PO SCH (14:00)
--- NOTE | 2018-10-07 15:38 | NUR ---
Patient discharged to [facility] set up by garima LARES. Transportation picked patient up at 1500. IV line discontinued. Belongings with patient and medications returned from pharmacy. This RN called report to Lisa RN at [facility], all questions answered, details on follow up given with Dr. Joshua, prescriptions and phone number given in case more questions to arise. Lisa also given heads up about home medications being with patient. Patient alert and stable upon discharge. Daughter aware of plan.
--- NOTE | 2018-10-07 15:58 | NUR ---
Late Note: Orders faxed to [facility] and pt will transport via [facility] at 1500. Pt's choice and rights forms verbally consented by pt's daughter via phone and copies on chart. Packet on Chart. DAVID HIRSCH.
--- NOTE | 2018-10-07 19:30 | DS ---
DATE OF DISCHARGE: 10/07/2018 DATE OF ANTICIPATED DISMISSAL: 10/07/2018 CONSULTANTS: Dr. Forte and Dr. Montero. FINAL DIAGNOSES: 1. Klebsiella urinary tract infection. 2. Disuse with gait dysfunction. 3. Cervical spondylosis. 4. Urine retention requiring a Yao catheter. 5. Diabetes mellitus type 2. 6. Hypertension. 7. Rheumatoid arthritis. 8. Immunosuppressed due to methotrexate to treat the rheumatoid arthritis. HOSPITAL COURSE: The patient is a 78-year-old -[place]ag[place] female with history of diabetes mellitus type 2, hypertension, rheumatoid arthritis treated with methotrexate, who has a history of cervical spinal stenosis and spondylosis. She uses a roller walker at home. She has a 3-day history of increasing weakness to the point where the family could not get her out of bed and she could not ambulate and complained of dysuria. She went to the [facility] Emergency Room on 10/04/2018, noted to have pyuria and started on IV Rocephin. Urinary culture was obtained and eventually it came back Klebsiella and she was switched to Omnicef. The patient's chest x-ray was unremarkable. Laboratory tests were also unremarkable. CAT scan of brain showed no acute abnormality. She was seen by Physical and Occupational Therapy and Dr. Montero for physical rehabilitation and recommended prison facility. The patient was also seen in consultation by the urologist for urinary retention who recommended placement of a Yao catheter. A Yao catheter was placed. Blood sugar was running little high and she was treated with metformin and also on an insulin sliding scale while she was in the hospital. It is anticipated that she will be dismissed to a prison facility today for physical and occupational therapy and will be dismissed on Tylenol 650 mg every 6 hours p.r.n.; amlodipine 10 mg every day; cefdinir 300 mg b.i.d. for 4 more days; folic acid 1 mg every day; gabapentin 300 mg t.i.d.; hydralazine 25 mg t.i.d., which was started for hypertension; low dose Humalog sliding scale before meals t.i.d.; losartan 100 mg every day; metformin 1000 mg b.i.d. with meals; methotrexate 10 mg every week, I believe it is on Sundays that she gets it; Percocet 7.5/325 one p.o. b.i.d. p.r.n. for pain, 30 tablets, no refill; Senokot-S 2 tablets at bedtime; also on MiraLax 17 grams in 8 ounces of fluid every day. DEVORA BOSCH MD DR: MONIQUE/azar JOB#: [id number] / [id number]
[2018-10-10] MEDS ORDERED: METHOTREXATE SODIUM 2.5 MG TABLET PO SCH (09:00)
== END 2018-10-07 15:43 | DRG 689 ==
LOC: ER 13:38 → 5 NORTH 15:12
PROVIDERS: ADMIT Internal Medicine; ATTEND Internal Medicine
DX: N39.0 Urinary tract infection, site not specified (principal); G82.50 Quadriplegia, unspecified; K59.2 Neurogenic bowel, not elsewhere classified; M47.12 Other spondylosis with myelopathy, cervical region; N20.1 Calculus of ureter; M48.02 Spinal stenosis, cervical region; G72.89 Other specified myopathies; N31.9 Neuromuscular dysfunction of bladder, unspecified; I11.0 Hypertensive heart disease with heart failure; M06.9 Rheumatoid arthritis, unspecified; B96.1 Klebsiella pneumoniae [K. pneumoniae] as the cause of diseases classified elsewhere; E11.319 Type 2 diabetes mellitus with unspecified diabetic retinopathy without macular edema; E11.42 Type 2 diabetes mellitus with diabetic polyneuropathy; E78.5 Hyperlipidemia, unspecified; E86.0 Dehydration; I50.9 Heart failure, unspecified; M19.90 Unspecified osteoarthritis, unspecified site; M48.061 Spinal stenosis, lumbar region without neurogenic claudication; Z79.84 Long term (current) use of oral hypoglycemic drugs; Z79.899 Other long term (current) drug therapy; Z90.49 Acquired absence of other specified parts of digestive tract; Z90.710 Acquired absence of both cervix and uterus; Z98.1 Arthrodesis status; F32.9 Major depressive disorder, single episode, unspecified; G89.29 Other chronic pain
CPT/HCPCS: 36415; 70450; 71045; 72125; 80048; 80053; 80061; 81001; 82306; 82607; 82962; 83605; 85025; 87040; 87086; 87186; 93005; 96374; J0696; J1650; J1815; J2405; J7030; 97535; 99285-25

== ENCOUNTER 2019-03-20 19:01 | Emergency (ER) | payer MEDICARE, OTHER ==
[~2019-03-20] VITALS: Ht 177.8 cm; Wt 66.7 kg
[~2019-03-20 19:01] MED LIST changes: +AMLO10TA8 PO; +CEFD300C PO; +HYDR-2868 PO; +INSU100I11 SQ; +METH2.5T PO; +SENN-22 PO
[2019-03-20 19:44] LABS: BASO % 0 % (0-3); EOS # 0.1 x10^3/uL (0.0-0.7); EOS % 2 % (0-3); HEMATOCRIT 32.8 % (36.0-47.0); HEMOGLOBIN 10.9 g/dL (12.0-15.5); LYMPH # 1.1 x10^3/uL (1.0-4.8); LYMPH % 29 % (24-48); MEAN CORPUSCULAR HEMOGLOBIN 30 pg (25-35); MEAN CORPUSCULAR HGB CONC 33 g/dL (31-37); MEAN CORPUSCULAR VOLUME 90 fL (79-100); MONO # 0.5 x10^3/uL (0.0-1.1); MONO % 12 % (0-9); NEUT # 2.3 x10^3/uL (1.8-7.7); NEUT % 57 % (31-73); PLATELET COUNT 167 x10^3/uL (140-400); RED BLOOD COUNT 3.64 x10^6/uL (3.50-5.40); RED CELL DISTRIBUTION WIDTH 16.2 % (11.5-14.5)
[2019-03-20 19:48] LABS: CALCIUM 9.7 mg/dL (8.5-10.1); CREATININE 1.1 mg/dL (0.6-1.0); GFR 58.4; POTASSIUM 4.4 mmol/L (3.5-5.1)
--- NOTE | 2019-03-20 19:53 | PHYS DOC ---
Past Medical History Past Medical History: CHF, Depression, Diabetes-Type II, Hypertension, Other Additional Past Medical Histor: blood clots, chronic back pain, Past Surgical History: Appendectomy, Cervical Fusion, Hysterectomy, Tonsillectomy Alcohol Use: None Drug Use: None Adult General Chief Complaint Chief Complaint: BACK PAIN - NO INJURY HPI HPI Patient is a 78 year old female who presents to the ER for frequency, dysuria, and back pain has been ongoing for 3 days. The patient rates her pain as 6 out of 10 in severity and states she took a [place] a couple hours ago which only mildly helped her pain. She denies any other complaints. Review of Systems Review of Systems Constitutional: Denies fever or chills [] Eyes: Denies change in visual acuity, redness, or eye pain [] HENT: Denies nasal congestion or sore throat [] Respiratory: Denies cough or shortness of breath [] Cardiovascular: No additional information not addressed in HPI [] GI: Denies abdominal pain, nausea, vomiting, bloody stools or diarrhea [] : Reports frequency and dysuria. Musculoskeletal: Denies back pain or joint pain [] Integument: Denies rash or skin lesions [] Neurologic: Denies headache, focal weakness or sensory changes [][] Complete systems were reviewed and found to be within normal limits, except as documented in this note. Current Medications Current Medications Current Medications Medications (Trade) Dose Ordered Sig/[facility] Start Time Stop Time Status Last Admin Dose Admin Fentanyl Citrate (Fentanyl 2ml Vial) 50 mcg 1X ONCE 03/20/19 20:00 03/20/19 20:01 DC 03/20/19 20:13 50 MCG Allergies Allergies Allergies Coded Allergies Type Severity Reaction Last Updated Verified No Known Drug Allergies 09/28/14 No Physical Exam Physical Exam Constitutional: Well developed, well nourished, no acute distress, non-toxic appearance. [] HENT: Normocephalic, atraumatic, bilateral external ears normal, oropharynx moist, no oral exudates, nose normal. [] Eyes: PERRLA, EOMI, conjunctiva normal, no discharge. [] Neck: Normal range of motion, no tenderness, supple, no stridor. [] Cardiovascular:Heart rate regular rhythm, no murmur [] Lungs & Thorax: Bilateral breath sounds clear to auscultation [] Abdomen: Bowel sounds normal, soft, no tenderness, no masses, no pulsatile masses. [] Skin: Warm, dry, no erythema, no rash. [] Back: mild flank pain, no CVA tenderness. Extremities: No tenderness, no cyanosis, no clubbing, ROM intact, no edema. [] Neurologic: Alert and oriented X 3, normal motor function, normal sensory function, no focal deficits noted. [] Psychologic: Affect normal, judgement normal, mood normal. [] Current Patient Data Vital Signs Vital Signs Date Time Temp Pulse Resp B/P (MAP) Pulse Ox O2 Delivery O2 Flow Rate FiO2 03/20/19 20:13 20 97 Room Air 03/20/19 19:17 98.1 75 183/81 (115) 98.1 Lab Values Laboratory Tests Test 03/20/19 19:20 03/20/19 19:50 White Blood Count 4.0 x10^3/uL (4.0-11.0) Red Blood Count 3.64 x10^6/uL (3.50-5.40) Hemoglobin 10.9 g/dL (12.0-15.5) L Hematocrit 32.8 % (36.0-47.0) L Mean Corpuscular Volume 90 fL (79-100) Mean Corpuscular Hemoglobin 30 pg (25-35) Mean Corpuscular Hemoglobin Concent 33 g/dL (31-37) Red Cell Distribution Width 16.2 % (11.5-14.5) H Platelet Count 167 x10^3/uL (140-400) Neutrophils (%) (Auto) 57 % (31-73) Lymphocytes (%) (Auto) 29 % (24-48) Monocytes (%) (Auto) 12 % (0-9) H Eosinophils (%) (Auto) 2 % (0-3) Basophils (%) (Auto) 0 % (0-3) Neutrophils # (Auto) 2.3 x10^3/uL (1.8-7.7) Lymphocytes # (Auto) 1.1 x10^3/uL (1.0-4.8) Monocytes # (Auto) 0.5 x10^3/uL (0.0-1.1) Eosinophils # (Auto) 0.1 x10^3/uL (0.0-0.7) Basophils # (Auto) 0.0 x10^3/uL (0.0-0.2) Sodium Level 145 mmol/L (136-145) Potassium Level 4.4 mmol/L (3.5-5.1) Chloride Level 107 mmol/L (98-107) Carbon Dioxide Level 32 mmol/L (21-32) Anion Gap 6 (6-14) Blood Urea Nitrogen 32 mg/dL (7-20) H Creatinine 1.1 mg/dL (0.6-1.0) H Estimated GFR (Cockcroft-Gault) 58.4 BUN/Creatinine Ratio 29 (6-20) H Glucose Level 147 mg/dL (70-99) H Lactic Acid Level 1.8 mmol/L (0.4-2.0) Calcium Level 9.7 mg/dL (8.5-10.1) Total Bilirubin 0.1 mg/dL (0.2-1.0) L Aspartate Amino Transferase (AST) 18 U/L (15-37) Alanine Aminotransferase (ALT) 26 U/L (14-59) Alkaline Phosphatase 92 U/L (46-116) Total Protein 8.3 g/dL (6.4-8.2) H Albumin 4.0 g/dL (3.4-5.0) Albumin/Globulin Ratio 0.9 (1.0-1.7) L Urine Collection Type Unknown Urine Color Yellow Urine Clarity Clear Urine pH 7.5 Urine Specific [place] 1.020 Urine Protein Negative mg/dL (NEG-TRACE) Urine Glucose (UA) Negative mg/dL (NEG) Urine Ketones (Stick) Negative mg/dL (NEG) Urine Blood Negative (NEG) Urine Nitrite Negative (NEG) Urine Bilirubin Negative (NEG) Urine Urobilinogen Dipstick 0.2 mg/dL (0.2 mg/dL) Urine Leukocyte Esterase Trace (NEG) Urine RBC Occ /HPF (0-2) Urine WBC Occ /HPF (0-4) Urine Squamous Epithelial Cells Few /LPF Urine Bacteria Many /HPF (0-FEW) Laboratory Tests 03/20/19 19:20 Laboratory Tests 03/20/19 19:20 EKG EKG [] Radiology/Procedures Radiology/Procedures [] Course & Med Decision Making Course & Med Decision Making Pertinent Labs and Imaging studies reviewed. (See chart for details) Will get labs, and urine. Patient is agreeable to this plan. Labs are unremarkable. Patient has trace leukocytes. Will d/c home on Keflex. Dragon Disclaimer Dragon Disclaimer This electronic medical record was generated, in whole or in part, using a voice recognition dictation system. Departure Departure Impression: Primary Impression: UTI (lower urinary tract infection) Disposition: 01 HOME, SELF-CARE Condition: STABLE Referrals: DEVORA BSOCH MD (PCP) Patient Instructions: Urinary Tract Infection Additional Instructions: Thank you for visiting [facility]. We appreciate you trusting us with your care. If any additional problems come up don't hesitate to return to visit us. Please follow up with your primary care provider so they can plan ad ditional care if needed and know about the problem that you had. If symptoms worsen come back to the Emergency Department. Any concerning symptoms that start such as chest pain, shortness of air, weakness or numbness on one side of the body, running high fevers or any other concerning symptoms return to the ER. You have been prescribed an antibiotic today to help fight your infection. Please take all of the antibiotic as directed. If after 48 hours the infection is not improving, please return for more care. If the infection worsens, return to ER for additional care. Scripts Cephalexin (KEFLEX) 500 Mg Capsule 1 CAP PO BID for 7 Days, #14 CAP 0 Refills Prov: DEVORA RUBIN APRN 03/20/19 DEVORA RUBIN APRN Mar 20, 2019 19:53
[2019-03-20 19:54] LABS: ALBUMIN/GLOBULIN RATIO 0.9 (1.0-1.7); TOTAL BILIRUBIN 0.1 mg/dL (0.2-1.0); TOTAL PROTEIN 8.3 g/dL (6.4-8.2)
[2019-03-20 19:58] LABS: BILIRUBIN,URINE NEGATIVE (NEG); CLARITY,URINE CLEAR; COLOR,URINE YELLOW; NITRITE,URINE NEGATIVE (NEG); PH,URINE 7.5; PROTEIN,URINE NEGATIVE (NEG-TRACE); UROBILINOGEN,URINE 0.2 mg/dL (0.2 mg/dL)
[2019-03-20] MEDS ORDERED: fentaNYL PF VIAL 100 MCG/2 ML VIAL IV ONE (20:00)
[2019-03-20 20:04] LABS: BACTERIA,URINE MANY /HPF (0-FEW); RBC,URINE OCC /HPF (0-2); SQUAMOUS EPITHELIAL CELL,UR FEW /LPF; WBC,URINE OCC /HPF (0-4)
[2019-03-20 20:12] VITALS: BP 179/76
[2019-03-20] MEDS ORDERED: CEPH-264 PO (20:38)
[2019-03-24] MEDS ORDERED: HYDR-2761 PO (14:56)
[2019-03-24] MEDS ORDERED: TAMS0.4C97 PO (14:56)
== END 2019-03-20 20:55 | disposition home or self-care (01) ==
LOC: ER 19:01
DX: N39.0 Urinary tract infection, site not specified (principal); F32.9 Major depressive disorder, single episode, unspecified; E11.9 Type 2 diabetes mellitus without complications; I11.0 Hypertensive heart disease with heart failure; I50.9 Heart failure, unspecified; G89.29 Other chronic pain; Z90.89 Acquired absence of other organs; Z90.710 Acquired absence of both cervix and uterus
CPT/HCPCS: 36415; 80053; 81001; 83605; 85025; 87086; 96374; 99284; J3010

== ENCOUNTER → 2019-03-24 | Outpatient (CLI) | payer MEDICARE, OTHER ==
[2019-03-20 20:12] VITALS: BP 179/76
[~2019-03-24] MED LIST changes: +BUPIVACAINE MPF 0.25% 10 ML VIAL. ONE; +CEPH-264 PO; +HYDR-2761 PO; +IOHEXOL 180 MG/ML 10 ML VIAL. ONE; +SIMV10TA15 PO; -SIMV10TA3 PO; +SIMV20TA18 PO; -SIMV20TA3 PO; +TAMS0.4C97 PO; +diphenhydrAMINE 50 MG/ML VIAL ONE; +methylPREDNISolone ACETATE 40 MG/ML VIAL. ONE; +methylPREDNISolone ACETATE 80 MG/ML VIAL. ONE
--- NOTE | 2019-03-24 19:45 | PAIN ---
DATE OF SERVICE: 03/24/2019 PROGRESS NOTE FOR PAIN CONTROL DIAGNOSES: Lumbar radiculopathy with lumbar degenerative disk disease, lumbar spinal stenosis. HISTORY OF PRESENT ILLNESS: The patient is a 78-year-old female who returns for followup, last seen in 12/2017. The patient had lumbar epidural steroid injection with good improvement about 60% improvement for about 6 weeks. The patient reports the pains are returning now. She has been very busy taking care of her , who has been ill, was unable to get back for more treatment until recently and returns today reporting significant pain in the low back and the right lower extremity as it had been previously, worse with walking, standing, changing positions, better with sitting or lying down, but awakens her from sleep on and off, but not every night. The patient reports the pain is a 10 on a scale of 10 at its worst over the past week, 8 on average, 7 at its least and is an 8 today. The patient reports it is aching, sharp, constant, radiating and severe at times, worse with standing, walking, better with sitting as noted. The patient reports no new motor or sensory deficits, no new bowel or bladder incontinence. PHYSICAL EXAMINATION: VITAL SIGNS: The patient's blood pressure is 145/64, pulse 88, respirations are 18, temperature is 98.2 degrees Fahrenheit, height is 5 feet 10 inches, weighs 140 pounds. GENERAL: The patient is awake, alert, oriented, appropriate, very pleasant demeanor. HEENT: Shows normocephalic, atraumatic. Extraocular movements are intact and symmetrical. Oral cavity: Mucous membranes moist and pink. Dentition is intact. NECK: Shows anterior throat supple without palpable lymphadenopathy noted. Swallow reflex symmetrical. CHEST: Shows normal on inspection. Breath sounds are clear bilaterally. HEART: Shows S1, S2 clear. No murmurs auscultated. ABDOMEN: Soft, nontender, nondistended. No palpable organomegaly is noted. There is no rebound or guarding demonstrated. BACK: Shows spine grossly in the midline. Normal appearing thoracic kyphosis and lumbar lordotic curvature. Lumbar paraspinous muscle shows symmetrical on inspection, on palpation shows some moderate tenderness diffusely, only diffusely without radiation. The patient shows a significant forward cervical flexion and the well-healed surgical scar on the posterior cervical spinal distribution as well. EXTREMITIES: The patient's lower extremities show deep tendon reflexes at 1+ in the patellar and tendo calcaneus tendons. Motor exam is approximately 3/5 with quadriceps and hamstring flexion and forearms dorsiflexion and extension bilaterally, but symmetrical and equal. Peripheral pulses are 1+. No peripheral edema is noted. Options were discussed with the patient. The patient's son, who accompanies her to visit today and we will proceed with a lumbar epidural steroid injection. She has done quite well with these in the past. Risks were again discussed including, but not limited to bleeding, infection, possibility of epidural hematoma, subsequent neurological compromise, dural puncture, headaches, spinal cord and/or nerve damage, side effects of steroid medication and poor results regarding pain control. The patient understands and wished to proceed. The patient will return to clinic in approximately 2 weeks for followup. She was counseled as to return appointment, activity level and side effects to be aware of. DIAGNOSES: Lumbar radiculopathy with lumbar degenerative disk disease, lumbar spinal stenosis. PROCEDURE: Lumbar epidural steroid injection, translaminar approach L4-L5 level using C-arm fluoroscopic guidance under sterile prep and drape using local anesthetic. MEDICATION INJECTED: The patient received a total of 120 mg Depo-Medrol plus 10 mL of preservative-free normal saline and 2 mL of contrast. CONDITION AT DISCHARGE: Stable. The patient tolerated the procedure well, had no complications. CHANNING SOLIZ MD DR: [place]/azar JOB#: [id number] / [id number]
== END ==
LOC: PNCL 14:18
PROVIDERS: ATTEND Anesthesiology
DX: M51.16 Intervertebral disc disorders with radiculopathy, lumbar region (principal); M48.061 Spinal stenosis, lumbar region without neurogenic claudication
CPT/HCPCS: 62323; J1030; J1040; Q9965; J1200; J3490

== ENCOUNTER 2019-05-13 20:24 | Emergency (ER) | payer MEDICARE, OTHER ==
[~2019-05-13] VITALS: Ht 172.7 cm; Wt 63.5 kg
[~2019-05-13 20:24] MED LIST changes: -BUPIVACAINE MPF 0.25% 10 ML VIAL. ONE; -IOHEXOL 180 MG/ML 10 ML VIAL. ONE; -diphenhydrAMINE 50 MG/ML VIAL ONE; -methylPREDNISolone ACETATE 40 MG/ML VIAL. ONE; -methylPREDNISolone ACETATE 80 MG/ML VIAL. ONE
[2019-05-13] MEDS ORDERED: CEPH-263 PO (22:18)
--- NOTE | 2019-05-13 22:18 | PHYS DOC ---
Past Medical History Past Medical History: Anxiety, Diabetes-Type II, High Cholesterol, Hypert ension, TIA, UTI Additional Past Medical Histor: SUBDURAL HEMATOMA, BACTREMIA Past Surgical History: Appendectomy, Hysterectomy Additional Past Surgical Histo: IVC FILTER Alcohol Use: None Drug Use: None Adult General Chief Complaint Chief Complaint: MULTIPLE COMPLAINTS [facility] HPI Patient is a 78 year old -Armenian right-handed female who presents with a ring tourniquet to left finger. She was evaluated at [facility] prior to ED arrival and section of the ring was removed in attempt remove packing. However, this was unsuccessful and the patient was subsequently referred to the ED. On exam, patient metal ring left small finger with significant vascular congestion distal to the ring. Cap refill is intact. Motor function is intact. Patient currently denies pain. No obvious cellulitis. There is early skin breakdown arou nd the ring. No other acute symptoms or complaints. Additional history is obtained from the patient's daughter. [] Review of Systems Review of Systems Constitutional: Denies fever or chills [] Eyes: Denies change in visual acuity, redness, or eye pain [] HENT: Denies nasal congestion or sore throat [] Respiratory: Denies cough or shortness of breath [] Cardiovascular: No additional information not addressed in HPI [] GI: Denies abdominal pain, nausea, vomiting, bloody stools or diarrhea [] : Denies dysuria or hematuria [] Musculoskeletal: Denies back pain or joint pain [] Integument: Denies rash or skin lesions [] Neurologic: Denies headache, focal weakness or sensory changes [] Endocrine: Denies polyuria or polydipsia [] All other systems were reviewed and found to be within normal limits, except as documented in this note. Allergies Allergies Allergies Coded Allergies Type Severity Reaction Last Updated Verified No Known Drug Allergies 09/28/14 No Physical Exam Physical Exam Constitutional: Well developed, well nourished, no acute distress, non-toxic appearance. [] HENT: Normocephalic, atraumatic, bilateral external ears normal, oropharynx moist, no oral exudates, nose normal. [] Eyes: PERRLA, EOMI, conjunctiva normal, no discharge. [] Neck: Normal range of motion, no tenderness, supple, no stridor. [] Cardiovascular:Heart rate regular rhythm, no murmur [] Lungs & Thorax: Bilateral breath sounds clear to auscultation [] Abdomen: Bowel sounds normal, soft, no tenderness, no masses, no pulsatile masses. [] Skin: Warm, dry, no erythema, no rash. [] Back: No tenderness, no CVA tenderness. [] Extremities: No tenderness, no cyanosis, no clubbing, ROM intact, no edema. [] Neurologic: Alert and oriented X 3, normal motor function, normal sensory function, no focal deficits noted. [] Psychologic: Affect normal, judgement normal, mood normal. [] Current Patient Data Vital Signs Vital Signs Date Time Temp Pulse Resp B/P (MAP) Pulse Ox O2 Delivery O2 Flow Rate FiO2 05/13/19 20:42 98.0 78 20 173/91 (118) 99 Room Air 98.0 EKG EKG [] Radiology/Procedures Radiology/Procedures [Ring tourniquet removal Patient had hemostat was placed on either side of the ring ends where a section of the ring had previously been removed. The ring was then bandaged such a fashion that it was able to expand and was easily removed. Course & Med Decision Making Course & Med Decision Making Pertinent Labs and Imaging studies reviewed. (See chart for details) [Minimal skin breakdown noted. Sensation returned and swelling is improved. Abx given, tetanus updated. Patient placed in sling. Xray will be obtained to rule out fracture as the cause of swelling. Patient will be discharged home with instructions to follow-up closely with PCP on Thursday or evidence of necrosis or infection. Return precautions reviewed. Patient verbalizes understanding and agreement discharge instructions prior to departure. ]] Dragon Disclaimer Dragon Disclaimer This electronic medical record was generated, in whole or in part, using a voice recognition dictation system. Departure Departure Impression: Primary Impression: Injury of finger Disposition: HOME, SELF-CARE Condition: STABLE Referrals: DEVORA BOSCH MD (PCP) Patient Instructions: Finger Sprain Additional Instructions: Please apply topical antibiotics twice daily and take oral antibiotics as directed. Leave arm in sling overnight. Take ibuprofen for pain and follow-up with PCP on Thursday for reevaluation of left small finger. Return to the ED if new or concerning symptoms. Scripts Cephalexin (KEFLEX) 250 Mg Capsule 1 CAP PO TID for 7 Days, #21 CAP 0 Refills Prov: SHAKA SUH DO 05/13/19 SHAKA SUH DO May 13, 2019 22:18
[2019-05-13] MEDS ORDERED: BACITRACIN TOPICAL OINT PACKET. TP ONE (22:30)
[2019-05-13] MEDS ORDERED: HYDROcodone/APAP 5/325MG 1 TAB TABLET PO ONE (22:30)
[2019-05-13] MEDS ORDERED: CEPHALEXIN 250 MG CAPSULE. PO ONE (22:30)
[2019-05-13] MEDS ORDERED: DIPHTH,PERTUSS(ACELL),TET TOX 0.5 ML DISP.SYRIN. VAX IM ONE (22:30)
--- NOTE | 2019-05-13 22:35 | RAD ---
FINGER(S) LEFT History: Fifth digit soft tissue swelling. Technique: PA view the hand and 2 additional views of the fifth digit. Comparison: None. Findings: Normal alignment. No fracture. Fifth digit soft tissue swelling with dystrophic calcifications. Moderate first carpal metacarpal triscaphe DJD. Widening of the scapholunate interval with migration of the hamate compatible with SLAC wrist. Chondrocalcinosis within the wrist. Second metacarpal phalangeal joint space narrowing with metacarpal head erosions and subluxation. Impression: 1. No acute osseous abnormality. Fifth digit soft tissue swelling. 2. SLAC wrist deformity. 3. Second metacarpophalangeal joint space narrowing with erosions and subluxation, can be seen with inflammatory arthropathy such as rheumatoid arthritis. 4. Chondrocalcinosis within the wrist. Electronically signed by: Layton Mercado DO (05/13/2019 10:32 PM) [facility]
[2019-05-13 22:38] VITALS: BP 163/72
== END 2019-05-13 22:56 | disposition home or self-care (01) ==
LOC: ER 20:24
DX: S60.457A Superficial foreign body of left little finger, initial encounter (principal); F41.9 Anxiety disorder, unspecified; E11.9 Type 2 diabetes mellitus without complications; E78.00 Pure hypercholesterolemia, unspecified; I10 Essential (primary) hypertension; Z86.73 Personal history of transient ischemic attack (TIA), and cerebral infarction without residual deficits; Z87.440 Personal history of urinary (tract) infections; W49.04XA Ring or other jewelry causing external constriction, initial encounter; Y93.89 Activity, other specified; Y92.89 Other specified places as the place of occurrence of the external cause; Y99.8 Other external cause status
CPT/HCPCS: 73140; 90471; 90715; 99284-25

== ENCOUNTER → 2019-06-03 | Outpatient (CLI) | payer MEDICARE, OTHER ==
[2019-05-13 22:38] VITALS: BP 163/72
[~2019-06-03] MED LIST changes: +CEPH-263 PO; +IOHEXOL 180 MG/ML 10 ML VIAL. ONE; +methylPREDNISolone ACETATE 40 MG/ML VIAL. ONE; +methylPREDNISolone ACETATE 80 MG/ML VIAL. ONE
--- NOTE | 2019-06-03 12:18 | PAIN ---
DATE OF SERVICE: 06/03/2019 PROGRESS NOTE FOR PAIN CLINIC DIAGNOSES: Lumbar radiculopathy with lumbar degenerative disk disease and lumbar spinal stenosis. HISTORY OF PRESENT ILLNESS: The patient is a 78-year-old female who returns for followup status post lumbar epidural steroid injection x 1, last seen on 03/24/2019. The patient did very well with this, about 60% improvement overall for about 6 weeks. The patient reports the pain is still returned now in the low back, especially in the right lower extremity, posterior gluteus, posterior thigh to the knee on the right side mainly and across the low back. The patient reports it is a 9 on a scale of 10 at its worst in the past week, 8 on average, 8 at its least and is an 8 today. The patient reports it is aching, sharp, dull, tingling in the hand and right or left fingers and also some constant pain in the low back itself and into the right hip, which is more sharp. The patient reports it is worse with walking, standing and weightbearing, but also can be painful with sitting. The patient is sitting today, favoring her right side, leaning to her left. The patient reports it awakens her from sleep for about every 5 hours or so. The patient reports initially she is doing fairly well with daily activities, has been less painful day today and traveling with greater ease and comfort as well. The patient reports no new motor or sensory deficits, no new bowel or bladder incontinence or other complaints. PHYSICAL EXAMINATION: VITAL SIGNS: The patient's blood pressure is 134/100, pulse 81, respirations are 16, temperature is 98.3 degrees Fahrenheit, height is 5 feet 9 inches, weight is 139 pounds. GENERAL: The patient is awake, alert, oriented, appropriate, very pleasant demeanor. HEENT: Head shows normocephalic, atraumatic. Extraocular movements are intact and symmetrical. Oral cavity shows mucous membranes moist and pink. Dentition is intact. NECK: Shows anterior throat supple without palpable lymphadenopathy noted. Swallow reflex symmetrical. CHEST: Shows normal on inspection. Breath sounds are clear bilaterally. HEART: Shows S1, S2 clear. No murmurs auscultated. ABDOMEN: Soft, nontender, nondistended. No palpable organomegaly is noted. No rebound or guarding demonstrated. BACK: Shows spine grossly in the midline. Significant forward kyphosis of the cervical spine as well as some increased thoracic kyphosis and some mild flattening of lumbar lordotic curvature. Lumbar paraspinous muscle shows symmetrical on inspection, on palpation shows some moderate tenderness diffusely bilaterally in the lower distribution of the lumbar paraspinous muscles without asymmetry, without atrophy, hypertrophy, without trigger points, but very firm and moderately tender diffusely bilaterally. EXTREMITIES: The patient's lower extremities show deep tendon reflexes 1+ in the patellar and tendo-calcaneus tendons. Motor exam is approximately 4 on a scale of 5, but symmetrical with dorsiflexion, extension and about 3-4 on a scale of 5 with quadriceps and hamstring flexion again symmetrical right and left as well. PLAN: Options were discussed with the patient. The patient's old chart was reviewed as her current medication regimen updated. Current review of systems updated today as well. We will proceed with a lumbar epidural steroid injection today as the second in the series with fluoroscopic guidance. Risks were again discussed including, but not limited to bleeding, infection, possibility of epidural hematoma, subsequent neurologic compromise, dural puncture, headaches, spinal cord and/or nerve damage, side effects of steroid medication and poor results regarding pain control. The patient understands and wished to proceed. The patient will return to the clinic in approximately 2 weeks for followup. She was counseled as to return appointment, activity level and side effects to be aware of. DIAGNOSES: Lumbar radiculopathy with lumbar degenerative disk disease and lumbar spinal stenosis. PROCEDURE: Lumbar epidural steroid injection, translaminar approach L4-L5 level using C-arm fluoroscopic guidance under sterile prep and drape using local anesthetic. MEDICATION INJECTED: A total of 120 mg Depo-Medrol plus 10 mL of preservative-free normal saline and 2 mL of contrast. CONDITION AT DISCHARGE: Stable. The patient tolerated the procedure well, had no complications. CHANNING SOLIZ MD DR: [place]/azar JOB#: [id number] / [id number]
== END ==
LOC: PNCL 10:59
PROVIDERS: ATTEND Anesthesiology
DX: M51.16 Intervertebral disc disorders with radiculopathy, lumbar region (principal); M48.061 Spinal stenosis, lumbar region without neurogenic claudication
CPT/HCPCS: 62323; J1030; J1040; Q9965

== ENCOUNTER → 2019-08-02 | Outpatient (CLI) | payer MEDICARE, OTHER ==
[~2019-08-02] MED LIST changes: -IOHEXOL 180 MG/ML 10 ML VIAL. ONE; -methylPREDNISolone ACETATE 40 MG/ML VIAL. ONE; -methylPREDNISolone ACETATE 80 MG/ML VIAL. ONE
--- NOTE | 2019-08-02 17:52 | PAIN ---
DATE OF SERVICE: 08/02/2019 PROGRESS NOTE FOR PAIN CLINIC DIAGNOSES: 1. Lumbar radiculopathy with lumbar degenerative disk disease, lumbar spinal stenosis. 2. Post-laminectomy syndrome, cervical. HISTORY OF PRESENT ILLNESS: The patient is a 78-year-old female, who returns for followup, status post lumbar epidural steroid injection x 2, most recently on 06/03/2019. The patient reports only minimal decrease in pain after the last injection in her low back and in the right lower extremity, most primarily into the lateral and posterior thigh and posterior calf. The patient reports it is a 6 on a scale of 10 at its worst over the past week, 6 on average, 5 at its least. Initially, she was doing better, but it took about 2 weeks for the pain to decrease. The patient reports the pain is returning now, it is radiating, becoming more constant, stabbing, sharp and dull across the low back and into the leg, which is shooting and radiating as well. The patient reports no loss of motor function, but she is very weak on her legs and she is using a wheelchair and scooter when she can to ambulate. The patient reports no bowel or bladder incontinence, no new changes. PHYSICAL EXAMINATION: VITAL SIGNS: The patient's blood pressure 137/67, pulse 79, respirations 18, temperature 98.2 degrees Fahrenheit, height is 5 feet 9 inches, weight is 157 pounds. GENERAL: The patient is awake, alert, oriented, appropriate, very pleasant demeanor. The patient is accompanied by her son. HEENT: Shows normocephalic, atraumatic. Extraocular movements are intact and symmetrical. Oral cavity: Mucous membranes are moist and pink. Dentition is intact. NECK: Shows anterior throat supple. The patient has a significant forward flexion curvature of the cervical spine. CHEST: Shows normal on inspection. Breath sounds are clear bilaterally. HEART: Shows S1, S2 clear. ABDOMEN: Soft, nontender, nondistended. BACK: Shows spine grossly in the midline. Again, forward flexion of the cervical spine and some increased thoracic kyphosis as well as flattening of lumbar lordotic curvature. Paraspinous musculature in the lumbar distribution shows some moderate tenderness diffusely throughout the upper, middle and lower distribution of paraspinous muscles diffusely bilaterally, but without radiation with palpation. The patient shows good rotational motion of the lumbar spine, both laterally at 10 degrees right and left with some increased pain with extension, but not with forward flexion across low back without radiation to lower extremities. EXTREMITIES: The patient's lower extremities show deep tendon reflexes 1+ in the patellar and tendo calcaneus tendons. Motor exam is approximately 4 on a scale of 5, but equal with ankles and about 3-4 on a scale of 5 with quadriceps and hamstring flexion, but again symmetrical and equal bilaterally. Peripheral pulses are 1+ bilaterally as well. Options were discussed with the patient. The patient's old chart was reviewed as her current medication regimen updated. Current review of systems updated today as well. We will get a new MRI scan as she has had one about 2 years ago to see if there are any new compression fractures or any new changes that may explain the low back pain with the decreased effectiveness of the last injection. Also, discussed the patient's medication management and she is receiving her narcotic analgesics through her primary care physician. She has been on hydrocodone with Tylenol for some time now and appears to be developing a physiologic tolerance to this. I will recommend changing this to oxycodone without Tylenol in it, which may be more effective as well as safer for hepatic health. The patient will follow up after MRI scan. We will discuss further potential interventional techniques at that time. CHANNING SOLIZ MD DR: [place]/azar JOB#: [id number] / [id number]
== END | disposition home or self-care (01) ==
LOC: PNCL 13:08
PROVIDERS: ATTEND Anesthesiology
DX: M51.16 Intervertebral disc disorders with radiculopathy, lumbar region (principal); M48.061 Spinal stenosis, lumbar region without neurogenic claudication; M96.1 Postlaminectomy syndrome, not elsewhere classified
CPT/HCPCS: G0463

== ENCOUNTER → 2019-08-04 | Outpatient (CLI) | payer MEDICARE, OTHER ==
--- NOTE | 2019-08-04 11:40 | KCIC ---
MRI Lumbar Spine without contrast History: Right hip pain in recent months, spinal stenosis, radiculopathy Technique: Multiplanar, multi sequential noncontrast MR imaging was performed of the lumbar spine. Comparison: 12/21/17 Findings: There is similar old superior L2 compression deformity. Vertebral body stature is similar. There is again grade 1 anterior spondylolisthesis at L3-4. There is now negligible posterior subluxation L1 relative to L2. There is again fairly advanced degenerative disease L4-5 and L5-S1, to lesser degree at L3-4 and T12-L1, minimally at L1-2. There is variable mild endplate edema such as L3-4, L4-5, and L5-S1 as seen previously likely reactive/degenerative in etiology. Conus terminates near the superior aspect of L3. T10-T11: This level was not included on the axial images. There is facet degenerative change. Spinal canal are adequate. T11-12: There is buckling of the ligamentum flavum and facet degenerative change. There is very shallow posterior protrusion. Spinal canal is adequate. There is [id number] right and mild left neural foramina compromise. T12-L1: There is posterior bulge about 3 to 4 mm AP slightly indenting the ventral thecal sac slightly greater without significant spinal stenosis. Neural foramina are overall adequate. L1-L2: There is minimal disc osteophyte complex and bulge. There is [id number] buckling of the ligamentum flavum. Spinal canal is overall adequate. Neural foramina are adequate. L2-L3: There is moderate to severe buckling of the ligamentum flavum and minimal facet degenerative change as seen previously. Neural foramina and spinal canal are overall adequate. L3-L4: There is again severe buckling of the ligamentum flavum and mild to moderate facet degenerative change. There is partial uncovering of the posterior aspect of the disc due to spondylolisthesis with superimposed minimal bulge as seen previously. Combination of findings results in severe spinal stenosis as seen previously with near complete effacement of subarachnoid space, severe lateral recess stenosis bilaterally with impingement of the descending L4 nerve roots. There is somewhat increased moderate bilateral neural foramina compromise. L4-L5: There is again moderate to severe buckling of the ligamentum flavum and mild facet hypertrophic change. There is again disc osteophyte complex and likely partially calcified protrusion, greater in the left lateral recess. There is again moderate to severe bilateral, left greater than right lateral recess stenosis with contact of the descending L5 nerve roots, mild narrowing of the central canal. There is mild right greater than left neural foramina compromise. L5-S1: There is again minimal disc osteophyte complex, spinal canal overall adequate. There is minimal facet degenerative change. There is mild neural foramina compromise greater on the right, disc osteophyte complex near the undersurfaces of the exiting L5 nerve roots bilaterally. Impression: 1. There is again severe spinal stenosis including lateral recess stenosis bilaterally at L3-4 with contact of the descending L4 nerve roots. There is also moderate to severe left greater than right lateral recess stenosis at L4-5 with contact of the descending L5 nerve roots. 2. There is low lying conus terminating near the superior aspect of L3. 3. There is moderate neural foramina compromise bilaterally at L3-4, minimally at L4-5 and L5-S1. 4. There is again multilevel lumbar degenerative disc disease greatest L4-5 and L5-S1, multilevel spondylosis. 5. There is mild abnormal alignment as stated, multilevel facet degenerative change. Electronically signed by: Brian Garg MD (08/04/2019 11:37 AM) [email or web address]
== END ==
LOC: KCIC MRI 09:57
PROVIDERS: ATTEND Anesthesiology
DX: M51.16 Intervertebral disc disorders with radiculopathy, lumbar region (principal); M48.061 Spinal stenosis, lumbar region without neurogenic claudication
CPT/HCPCS: 72148

== ENCOUNTER → 2019-08-22 | Outpatient (CLI) | payer MEDICARE, OTHER ==
[~2019-08-22] MED LIST changes: +IOHEXOL 180 MG/ML 10 ML VIAL. ONE; +MELA10CA PO; +methylPREDNISolone ACETATE 40 MG/ML VIAL. ONE; +methylPREDNISolone ACETATE 80 MG/ML VIAL. ONE
--- NOTE | 2019-08-22 23:47 | PAIN ---
DATE OF SERVICE: 08/22/2019 PROGRESS NOTE FOR PAIN CLINIC DIAGNOSES: Lumbar radiculopathy with lumbar degenerative disk disease, lumbar spinal stenosis. HISTORY OF PRESENT ILLNESS: The patient is a 78-year-old female who returns for followup status post lumbar epidural steroid injections x 2, most recently on 06/03/2019. The patient reports it did help, but it was temporary and the pain is still returning in her low back and right lower extremity, mostly in the posterior gluteus, lateral thigh, lateral anterior thigh, anterior medial thigh and across the low back bilaterally. The patient reports that 9 on a scale of 10 on average, 10 at its worst and an 8 at its least and is a 9 today. The patient reports no new motor or sensory deficits. We did have MRI scan ordered after her last visit, we reviewed that with she and her daughter who accompanied her to visit today showing some significant spinal stenosis compared to film of 12/21/2017 with lateral recess stenosis bilaterally at L3-L4 with contact of the descending L4 nerve roots, moderate to severe left greater than right lateral recess stenosis at L4-L5 contacting descending L5 nerve roots, multilevel degenerative disk disease, greatest at L4-L5 and L5-S1. The patient reports still significant pain described as dull and aching, severe, worse with standing, walking, and weightbearing. The patient is spending most of her time seated and reports that does awaken her from sleep at night occasionally, not every night. She does take a sleeping medication, which helps as well. PHYSICAL EXAMINATION: VITAL SIGNS: The patient's blood pressure 131/59, pulse 75, respirations 16, temperature 98.2 degrees Fahrenheit. GENERAL: The patient is awake, alert, oriented, appropriate, very pleasant demeanor. Again, the patient is accompanied by her daughter. HEENT: Shows normocephalic, atraumatic. Extraocular movements are intact and symmetrical. Oral cavity: Mucous membranes moist and pink. Dentition is intact. NECK: Shows anterior throat supple without palpable lymphadenopathy noted. Swallow reflex symmetrical. CHEST: Shows normal on inspection. Breath sounds clear to auscultation bilaterally. HEART: Shows S1, S2 clear. ABDOMEN: Soft, nontender, nondistended. BACK: Shows spine grossly in the midline. Significant forward flexion of the cervical spine, again appreciated with some increased thoracic kyphosis and some flattening of lumbar lordotic curvature. Lumbar paraspinous muscle shows symmetrical on inspection, with palpation shows some moderate tenderness diffusely throughout the upper, middle and lower distribution of paraspinous muscles bilaterally, but without specific atrophy, hypertrophy, asymmetry or radiation. The patient does show good rotational motion of lumbar spine, both laterally as well as extension and flexion. EXTREMITIES: The patient's lower extremities show deep tendon reflexes at 1+ in the patellar and tendo calcaneus tendons. Motor exam is approximately 4 on a scale of 5, but equal with dorsiflexion, extension, quadriceps and hamstring flexion about 3-4 on a scale of 5, but again are symmetrical right and left. Peripheral pulses are 1+. No peripheral edema is noted bilaterally. Options were discussed with the patient. The patient's old chart was reviewed as her current medication regimen updated. Current review of systems updated today as well. We will proceed with a third in a series of lumbar epidural steroid injection today with fluoroscopic guidance. Risks were again discussed including, but not limited to bleeding, infection, possibility of epidural hematoma, subsequent neurological compromise, dural puncture, headaches, spinal cord and/or nerve damage, side effects of steroid medication and poor results regarding pain control. The patient understands and wished to proceed. The patient will return to clinic in approximately 2 weeks for followup. She was counseled on return appointment, activity level and side effects to be aware of. DIAGNOSES: Lumbar radiculopathy, lumbar degenerative disk disease, lumbar spinal stenosis. PROCEDURE: Lumbar epidural steroid injection, translaminar approach L4-L5 level using C-arm fluoroscopic guidance under sterile prep and drape using local anesthetic. MEDICATION INJECTED: A total of 120 mg Depo-Medrol plus 10 mL of preservative-free normal saline and 2 mL of contrast. CONDITION AT DISCHARGE: Stable. The patient tolerated procedure well, had no complications. CHANNING SOLIZ MD DR: [place]/azar JOB#: [id number] / [id number]
== END ==
LOC: PNCL 14:50
PROVIDERS: ATTEND Anesthesiology
DX: M51.16 Intervertebral disc disorders with radiculopathy, lumbar region (principal); M48.061 Spinal stenosis, lumbar region without neurogenic claudication
CPT/HCPCS: 62323; J1030; J1040; Q9965

== ENCOUNTER 2019-10-30 13:56 | Inpatient (IN) | payer MEDICARE, OTHER ==
[~2019-10-30] VITALS: Ht 170.2 cm; Wt 66.4 kg
[~2019-10-30 13:56] MED LIST changes: -IOHEXOL 180 MG/ML 10 ML VIAL. ONE; -methylPREDNISolone ACETATE 40 MG/ML VIAL. ONE; -methylPREDNISolone ACETATE 80 MG/ML VIAL. ONE
[2019-10-30] MEDS ORDERED: IV NORMAL SALINE 1000ML BAG 1,000 ML IV ONE (14:15)
[2019-10-30 14:42] LABS: CALCIUM 9.2 mg/dL (8.5-10.1); CREATININE 0.9 mg/dL (0.6-1.0); GFR 73.5; POTASSIUM 3.8 mmol/L (3.5-5.1)
[2019-10-30 14:44] LABS: BASO % 0 % (0-3); EOS # 0.1 x10^3/uL (0.0-0.7); EOS % 2 % (0-3); HEMATOCRIT 31.4 % (36.0-47.0); HEMOGLOBIN 10.6 g/dL (12.0-15.5); LYMPH # 1.2 x10^3/uL (1.0-4.8); LYMPH % 26 % (24-48); MEAN CORPUSCULAR HEMOGLOBIN 31 pg (25-35); MEAN CORPUSCULAR HGB CONC 34 g/dL (31-37); MEAN CORPUSCULAR VOLUME 93 fL (79-100); MONO # 0.5 x10^3/uL (0.0-1.1); MONO % 10 % (0-9); NEUT # 2.8 x10^3/uL (1.8-7.7); NEUT % 62 % (31-73); PLATELET COUNT 166 x10^3/uL (140-400); RED BLOOD COUNT 3.39 x10^6/uL (3.50-5.40); WHITE BLOOD COUNT 4.6 x10^3/uL (4.0-11.0)
[2019-10-30 14:46] LABS: BILIRUBIN,URINE NEGATIVE (NEG); CLARITY,URINE CLEAR; COLOR,URINE YELLOW; NITRITE,URINE POSITIVE (NEG); PH,URINE 7.5 (<5.0-8.0); PROTEIN,URINE NEGATIVE (NEG-TRACE)
[2019-10-30 14:48] LABS: ALBUMIN 3.7 g/dL (3.4-5.0); ALBUMIN/GLOBULIN RATIO 1.1 (1.0-1.7); TOTAL BILIRUBIN 0.3 mg/dL (0.2-1.0); TOTAL PROTEIN 7.2 g/dL (6.4-8.2)
--- NOTE | 2019-10-30 14:52 | RAD ---
STUDY: CT head without contrast INDICATION: Altered mental status. COMPARISON: Most recently on 10/04/2018 TECHNIQUE: Axial CT imaging through the head without the use of intravenous contrast. Sagittal and coronal reformats were obtained. One or more of the following individualized dose reduction techniques were utilized for this examination: 1. Automated exposure control 2. Adjustment of the mA and/or kV according to patient size 3. Use of iterative reconstruction technique. FINDINGS: No acute intracranial hemorrhage. No localized baeza-white matter differentiation loss is identified to suggest an acute cortical infarction. No midline shift. As noted previously there is crowding of the sulci at the vertex. Diffuse ventriculomegaly measuring similar to the comparison noting differences in slice orientation. Parenchymal volume loss and white matter findings often seen in the setting of chronic microvascular ischemic change. Intracranial atherosclerotic calcifications. Left frontal calvarium surgical hardware is again noted as well as partially imaged dorsal cervical spine fixation construct. No acute calvarial abnormality. IMPRESSION: 1. No acute intracranial hemorrhage or CT evidence for an acute cortical infarction. 2. Marked ventriculomegaly on a background of generalized parenchymal volume loss is not significantly different from 10/04/2018. Electronically signed by: MEG UNGER MD (10/30/2019 2:50 PM) [id number]
[2019-10-30 15:01] LABS: HYALINE CASTS, URINE MODERATE /HPF
[2019-10-30 15:02] LABS: AMORPHOUS SEDIMENT,UR PRESENT /HPF; BACTERIA,URINE MANY /HPF (0-FEW); RBC,URINE 0 /HPF (0-2)
--- NOTE | 2019-10-30 15:09 | RAD ---
AP chest x-ray HISTORY: Altered mental status. COMPARISON: Chest x-ray October 04, 2018. FINDINGS: Heart size normal. Aortic arch calcified plaque. Calcified granuloma right lung base. No pneumothorax, pulmonary opacities or pleural effusions. Thoracic scoliosis again demonstrated. IMPRESSION: No acute process. Electronically signed by: Brad Alfred MD (10/30/2019 3:07 PM) [facility]
--- NOTE | 2019-10-30 15:11 | PHYS DOC ---
Past Medical History Past Medical History: Anxiety, Diabetes-Type II, High Cholesterol, Hypertension, TIA, UTI Additional Past Medical Histor: SUBDURAL HEMATOMA, BACTREMIA Past Surgical History: Appendectomy, Hysterectomy Additional Past Surgical Histo: IVC FILTER Smoking Status: Never Smoker Alcohol Use: None Drug Use: None General Adult EDM: Chief Complaint: WEAKNESS/GENERALIZED HPI: HPI: Patient is a 79-year-old female who lives at home alone and gets around with a walker who presents today after falling at home sometime in the middle of the night and laying in the floor for many hours until help arrived. Patient states she did not hit her head was alert for this whole thing was just too weak to get up. She states she did not want to press her alert button because she did not want him to break her door down. Other than feeling generally weak she has not had any new pain no fever chills sweats nausea or vomiting. She has not had any upper respiratory type symptoms. [] Review of Systems: Review of Systems: Constitutional: Reports generalized weakness [] Eyes: Denies change in visual acuity. [] HENT: Denies nasal congestion or sore throat. [] Respiratory: Denies cough or shortness of breath. [] Cardiovascular: Denies chest pain or edema. [] GI: Denies abdominal pain, nausea, vomiting, bloody stools or diarrhea. [] : Denies dysuria. [] Musculoskeletal: Denies back pain or joint pain. [] Integument: Denies rash. [] Neurologic: Denies headache, focal weakness or sensory changes. [] Endocrine: Denies polyuria or polydipsia. [] Lymphatic: Denies swollen glands. [] Psychiatric: Denies depression or anxiety. [] Heart Score: Risk Factors: Risk Factors: DM, Current or recent (<one month) smoker, HTN, HLP, family history of CAD, obesity. Risk Scores: Score 0 - 3: 2.5% MACE over next 6 weeks - Discharge Home Score 4 - 6: 20.3% MACE over next 6 weeks - Admit for Clinical Observation Score 7 - 10: 72.7% MACE over next 6 weeks - Early Invasive Strategies Current Medications: Current Medications Medications (Trade) Dose Ordered Sig/Shama Start Time Stop Time Status Last Admin Dose Admin Sodium Chloride 1,000 ml @ 1,000 mls/hr 1X ONCE 10/30/19 14:15 10/30/19 15:14 10/30/19 14:41 1,000 MLS/HR Allergies: Allergies: Allergies Coded Allergies Type Severity Reaction Last Updated Verified No Known Drug Allergies 09/28/14 No Physical Exam: PE: Constitutional: Frail elderly female who appears acutely ill. [] HENT: Normocephalic, atraumatic, bilateral external ears normal, oropharynx moist, no oral exudates, nose normal. [] Eyes: PERRLA, EOMI, conjunctiva normal, no discharge. [] Neck: Normal range of motion, no tenderness, supple, no stridor. [] Cardiovascular: Tachycardic no murmur r [] Lungs & Thorax: Bilateral breath sounds clear to auscultation [] Abdomen: Bowel sounds normal, soft, no tenderness, no masses, no pulsatile masses. [] Skin: Warm, dry, no erythema, no rash. [] Back: No tenderness, no CVA tenderness. [] Extremities: No tenderness, no cyanosis, no clubbing, ROM intact, no edema. [] Neurologic: Alert and oriented X 3, normal motor function, normal sensory function, no focal deficits noted. [] Psychologic: Depressed affect. [] Current Patient Data: Labs: Laboratory Tests Test 10/30/19 14:01 10/30/19 14:10 White Blood Count 4.6 x10^3/uL (4.0-11.0) Red Blood Count 3.39 x10^6/uL (3.50-5.40) L Hemoglobin 10.6 g/dL (12.0-15.5) L Hematocrit 31.4 % (36.0-47.0) L Mean Corpuscular Volume 93 fL (79-100) Mean Corpuscular Hemoglobin 31 pg (25-35) Mean Corpuscular Hemoglobin Concent 34 g/dL (31-37) Red Cell Distribution Width 15.0 % (11.5-14.5) H Platelet Count 166 x10^3/uL (140-400) Neutrophils (%) (Auto) 62 % (31-73) Lymphocytes (%) (Auto) 26 % (24-48) Monocytes (%) (Auto) 10 % (0-9) H Eosinophils (%) (Auto) 2 % (0-3) Basophils (%) (Auto) 0 % (0-3) Neutrophils # (Auto) 2.8 x10^3/uL (1.8-7.7) Lymphocytes # (Auto) 1.2 x10^3/uL (1.0-4.8) Monocytes # (Auto) 0.5 x10^3/uL (0.0-1.1) Eosinophils # (Auto) 0.1 x10^3/uL (0.0-0.7) Basophils # (Auto) 0.0 x10^3/uL (0.0-0.2) Sodium Level 142 mmol/L (136-145) Potassium Level 3.8 mmol/L (3.5-5.1) Chloride Level 102 mmol/L (98-107) Carbon Dioxide Level 32 mmol/L (21-32) Anion Gap 8 (6-14) Blood Urea Nitrogen 26 mg/dL (7-20) H Creatinine 0.9 mg/dL (0.6-1.0) Estimated GFR (Cockcroft-Gault) 73.5 BUN/Creatinine Ratio 29 (6-20) H Glucose Level 108 mg/dL (70-99) H Calcium Level 9.2 mg/dL (8.5-10.1) Total Bilirubin 0.3 mg/dL (0.2-1.0) Aspartate Amino Transferase (AST) 20 U/L (15-37) Alanine Aminotransferase (ALT) 31 U/L (14-59) Alkaline Phosphatase 72 U/L (46-116) Creatine Kinase 144 U/L (26-192) Troponin I Quantitative < 0.017 ng/mL (0.000-0.055) Total Protein 7.2 g/dL (6.4-8.2) Albumin 3.7 g/dL (3.4-5.0) Albumin/Globulin Ratio 1.1 (1.0-1.7) Thyroid Stimulating Hormone (TSH) 0.019 uIU/mL (0.358-3.74) L Urine Collection Type U cath Urine Color Yellow Urine Clarity Clear Urine pH 7.5 (<5.0-8.0) Urine Specific Gary 1.020 (1.000-1.030) Urine Protein Negative mg/dL (NEG-TRACE) Urine Glucose (UA) Negative mg/dL (NEG) Urine Ketones (Stick) Negative mg/dL (NEG) Urine Blood Negative (NEG) Urine Nitrite Positive (NEG) Urine Bilirubin Negative (NEG) Urine Urobilinogen Dipstick 1.0 mg/dL (0.2 mg/dL) Urine Leukocyte Esterase Small (NEG) Urine RBC 0 /HPF (0-2) Urine WBC 1-4 /HPF (0-4) Urine Amorphous Sediment Present /HPF Urine Bacteria Many /HPF (0-FEW) Urine Hyaline Casts Moderate /HPF Urine Mucus Slight /LPF Laboratory Tests 10/30/19 14:01 Laboratory Tests 10/30/19 14:01 Vital Signs: Vital Signs Date Time Temp Pulse Resp B/P (MAP) Pulse Ox O2 Delivery O2 Flow Rate FiO2 10/30/19 13:56 98.1 75 16 182/70 (107) 99 Room Air 98.1 EKG: EKG: EKG: Normal sinus rhythm rate is [address]-T changes [] Radiology/Procedures: Radiology/Procedures: []PROCEDURE: CHEST AP ONLY AP chest x-ray HISTORY: Altered mental status. COMPARISON: Chest x-ray October 04, 2018. FINDINGS: Heart size normal. Aortic arch calcified plaque. Calcified granuloma right lung base. No pneumothorax, pulmonary opacities or pleural effusions. Thoracic scoliosis again demonstrated. IMPRESSION: No acute process. Impression: REASON: altered mental status/fall PROCEDURE: CT HEAD WO CONTRAST STUDY: CT head without contrast INDICATION: Altered mental status. COMPARISON: Most recently on 10/04/2018 TECHNIQUE: Axial CT imaging through the head without the use of intravenous contrast. Sagittal and coronal reformats were obtained. One or more of the following individualized dose reduction techniques were utilized for this examination: 1. Automated exposure control 2. Adjustment of the mA and/or kV according to patient size 3. Use of iterative reconstruction technique. FINDINGS: No acute intracranial hemorrhage. No localized baeza-white matter differentiation loss is identified to suggest an acute cortical infarction. No midline shift. As noted previously there is crowding of the sulci at the vertex. Diffuse ventriculomegaly measuring similar to the comparison noting differences in slice orientation. Parenchymal volume loss and white matter findings often seen in the setting of chronic microvascular ischemic change. Intracranial atherosclerotic calcifications. Left frontal calvarium surgical hardware is again noted as well as partially imaged dorsal cervical spine fixation construct. No acute calvarial abnormality. IMPRESSION: 1. No acute intracranial hemorrhage or CT evidence for an acute cortical infarction. 2. Marked ventriculomegaly on a background of generalized parenchymal volume loss is not significantly different from 10/04/2018. Course & Med Decision Making: Course & Med Decision Making Pertinent Labs and Imaging studies reviewed. (See chart for details) [ED course: Evaluation reveals a 79-year-old female who is frail weak and elderly. She was in the floor for several hours. She was given IV fluids during her stay in the emergency department. It was found that she had a urinary tract infection which is the likely culprit of her being generally weak. She was given IV Rocephin. She will be admitted to the hospital under the care of Dr. Holcomb.] Dragon Disclaimer: Dragon Disclaimer: This electronic medical record was generated, in whole or in part, using a voice recognition dictation system. Departure Departure Impression: Primary Impression: UTI (lower urinary tract infection) Additional Impression: Back pain Qualified Codes: M54.9 - Dorsalgia, unspecified; G89.29 - Other chronic pain Disposition: 09 ADMITTED INPATIENT Admitting Physician: Troy Holcomb Condition: GUARDED Referrals: TROY HOLCOMB MD (PCP) ADRIAN LOREDO DO October 30, 2019 15:10
[2019-10-30] MEDS ORDERED: cefTRIAXone IV Push 1 GM VIAL. IVP ONE (15:15)
[2019-10-30] MEDS ORDERED: IV NORMAL SALINE 1000ML BAG 1,000 ML IV SCH (15:17)
[2019-10-30] MEDS ORDERED: ACETAMINOPHEN 325 MG TABLET. PO PRN ×2 (15:30→16:15)
[2019-10-30] MEDS ORDERED: ONDANSETRON PF 4 MG/2 ML VIAL. IV PRN (15:30)
--- NOTE | 2019-10-30 15:30 | EKG ---
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
[2019-10-30] MEDS ORDERED: cloNIDine HCL 0.1 MG TABLET PO PRN (16:15)
[2019-10-30] MEDS: IV 1/2 NORMAL SALINE 1,000 ML IV SCH (16:15)
[2019-10-30] MEDS ORDERED: LOSA100T14 PO (16:18)
[2019-10-30] MEDS ORDERED: METH2.5T PO (16:18)
[2019-10-30] MEDS ORDERED: TAMS0.4C97 PO (16:18)
[2019-10-30] MEDS ORDERED: OXYC1TAB15 PO (16:18)
[2019-10-30] MEDS ORDERED: INSU100V13 SQ (16:18)
[2019-10-30] MEDS ORDERED: HYDR-2761 PO (16:18)
[2019-10-30] MEDS ORDERED: MAGNESIUM HYDROXIDE 2,400 MG/30 ML ORAL.SUSP. PO PRN (16:45)
--- NOTE | 2019-10-30 16:51 | PDOC ---
Provider Note Provider Note history and physical dictated # [id number] DEVORA BOSCH MD October 30, 2019 16:51
[2019-10-30] MEDS: INSULIN LISPRO 300 UNITS/3 ML VIAL. SQ SCH (17:00)
[2019-10-30] MEDS: metFORMIN 500 MG TABLET PO SCH (17:00)
--- NOTE | 2019-10-30 17:19 | NUR ---
Patient arrived in room 402 and then was immediately taken back downstairs for more CT scans. Consults called to both Dr Montero and Dr Vargas. Home medications had already been entered and approved by Dr Holcomb. Will do admission process if patient is returned to room in time before shift change.
--- NOTE | 2019-10-30 17:30 | RAD ---
EXAM: Right hip, 2 views; right knee, 2 views. HISTORY: Pain. COMPARISON: None. FINDINGS: Right hip: 2 views of the right hip are obtained. There is no fracture, dislocation or subluxation. There are surgical anchors overlying the right superior pubic ramus. Right knee: 2 views of the right knee are obtained. There is medial compartment joint space narrowing. There is medial and lateral compartment chondrocalcinosis. There is a small right knee effusion. IMPRESSION: 1. Small right knee effusion. 2. Mild medial compartment osteoarthritis of the right knee and right knee chondrocalcinosis. 3. No acute osseous finding. Electronically signed by: Carrol Larry MD (10/30/2019 5:27 PM) [facility]
--- NOTE | 2019-10-30 17:35 | RAD ---
EXAM: Cervical spine CT without contrast. HISTORY: Leg weakness.. TECHNIQUE: Computed tomographic images of the cervical spine were obtained without contrast. Multiplanar reformatting was performed. *One or more of the following individualized dose reduction techniques were utilized for this examination: 1. Automated exposure control. 2. Adjustment of the mA and/or kV according to patient size. 3. Use of iterative reconstruction technique. COMPARISON: 10/04/2018. FINDINGS: There is severe cervical kyphosis. There is minimal anterolisthesis of C3 on C4. There are laminotomy changes with posterior spinal fusion instrumentation at C3 through C6. There is degenerative endplate remodeling with disc space narrowing and osteophytosis primarily at the lower cervical levels and C2-C3. There is bone demineralization. Evaluation of the skull base and posterior fossa demonstrates dilatation of the occipital horns of the lateral ventricles due to cerebral atrophy. The possibility of hydrocephalus is not excluded on this [id number]. There is a heterogeneous thyroid containing multiple nodules, cysts and calcifications. There is suspected chronic subluxation of the sternal clavicular joints. There is biapical pleural parenchymal scarring. There is no neck lymphadenopathy. The combination of degenerative changes results in mild left foraminal stenosis at C2-C3, moderate left foraminal stenosis C5-C6 and mild left foraminal stenosis at C6-C7. IMPRESSION: 1. Multilevel degenerative change involving the cervical spine, described above. This is associated with left foraminal stenosis at C2-C3, C5-C6 and C6-C7. 2. Laminectomy changes with instrumented posterior fusion at C3-C6. No central canal stenosis is seen. 3. Cervical kyphosis. 4. Bone demineralization. 5. Suspected thyroid goiter. Electronically signed by: Carrol Larry MD (10/30/2019 5:32 PM) [facility]
[2019-10-30 17:38] VITALS: BP 140/62
--- NOTE | 2019-10-30 17:57 | RAD ---
EXAM: Lumbar spine CT without contrast. HISTORY: Right leg weakness. TECHNIQUE: Computed tomographic images of the lumbar spine were obtained without contrast. Multiplanar reformatting was performed. *One or more of the following individualized dose reduction techniques were utilized for this examination: 1. Automated exposure control. 2. Adjustment of the mA and/or kV according to patient size. 3. Use of iterative reconstruction technique. COMPARISON: MRI dated 08/04/2019. FINDINGS: There is mild lumbar scoliosis. There is mild retrolisthesis of T12 on L1 and L1 on L2. There is grade 1 anterolisthesis of L3 on L4. There is a chronic left superior endplate compression fracture with Schmorl's node at L2. No acute fracture seen. There is degenerative endplate remodeling with disc space narrowing, osteophytosis, Schmorl's node formation and vacuum phenomenon at all levels, with exception of L2-L3. There is multilevel facet arthropathy. At T12-L1, there is a posterior central disc protrusion superimposed on a disc bulge and endplate osteophytosis. There is mild bilateral facet arthropathy. There is mild retrolisthesis. There is mild left foraminal and central canal stenosis. At L1-L2, there is a shallow broad-based posterior disc protrusion superimposed on a disc bulge and endplate osteophytosis. There is mild bilateral facet arthropathy. There is mild central canal stenosis. At L2-L3, there is a disc bulge and endplate remodeling. There is moderate left facet arthropathy. There is no stenosis. At L3-L4, there is a disc bulge and endplate ossified ptosis. There is severe bilateral facet arthropathy. There is hypertrophy of the ligament of flavum. There is grade 1 anterolisthesis. There is mild to moderate right and moderate left foraminal stenosis. There is severe central canal stenosis. At L4-L5, there is a broad-based left paracentral to foraminal disc osteophyte complex superimposed on a disc bulge and endplate osteophytosis. There is mild bilateral facet arthropathy. There is hypertrophy of the ligamentum flavum. There is mild bilateral foraminal stenosis. There is moderate central canal stenosis. At L5-S1, there is a disc bulge and endplate osteophytosis. There is moderate right and mild left foraminal stenosis. Evaluation of the lower thorax demonstrates bilateral lower lobe atelectasis. There is an IVC filter in expected position. There is urinary bladder wall thickening and there are urinary bladder diverticula. This can be seen with chronic obstruction. There is bone demineralization. There is vacuum phenomenon and subchondral sclerosis involving the sacroiliac joints. IMPRESSION: 1. Multilevel degenerative change throughout the lumbar spine and lower thoracic spine, described in detail above. This results in stenosis at the aforementioned levels. The central canal stenosis is most significant at L3-L4. 2. Chronic mild superior endplate depression deformity at L2. There is no acute osseous finding. 3. Lumbar scoliosis and multilevel listhesis, described above. Electronically signed by: Carrol Larry MD (10/30/2019 5:54 PM) [facility]
[2019-10-30] MEDS ORDERED: METHOTREXATE SODIUM 2.5 MG TABLET PO SCH (18:00)
--- NOTE | 2019-10-30 18:46 | HP ---
ADMIT DATE: 10/30/2019 LOCATION: Room 402. HISTORY OF PRESENT ILLNESS: The patient is a 79-year-old -[place] female with history of diabetes mellitus type 2, on insulin, hypertension and anemia of chronic disease with cervical spondylosis, who lives alone, uses a walker, sustained a fall last night around 1:00 in the morning and her legs were weak. She did not lose consciousness, had no chest pain, shortness of breath or head trauma. She was found by her daughter 12 hours later around 1:00 in the afternoon, sent to the [facility] Emergency Room for evaluation. She does complain of some pain in her right hip and right knee. She notes that for the last week, her right leg has been weak, but it did not cause the actual fall, she said. She does have some dysuria and urinalysis in the Emergency Room showed only 1-4 white cells that she did get a dose of IV antibiotics. Her blood pressure was also high in the Emergency Room. She is therefore admitted for further evaluation of her generalized weakness, dehydration, and weakness in the right leg as well as debility. ALLERGIES AND INTOLERANCES: None. MEDICATIONS: Prior to admission include amlodipine 10 mg every day, folic acid 1 mg every day, gabapentin 300 mg t.i.d., hydrochlorothiazide 25 mg every day, Levemir insulin 10 units at bedtime, losartan 100 mg every day, metformin 1000 mg b.i.d., methotrexate, 15 mg every Thursday, oxycodone 5 mg b.i.d. p.r.n., and tamsulosin 0.4 mg every day. PAST SURGICAL HISTORY: Significant for tonsillectomy, hysterectomy, appendectomy and cervical spinal surgery. PAST MEDICAL HISTORY: She has rheumatoid arthritis. Diabetes mellitus type 2, on insulin, hypertension, osteoarthritis, Cervical spondylosis,diabetic retinopathy, gastritis and anemia in the past. SOCIAL HISTORY: Her earlier this year and he was in a long-term acute halfway care facility. She does not drink alcohol nor does she smoke cigarettes. Lives alone at home and uses a walker. FAMILY HISTORY: Not contributory. REVIEW OF SYSTEMS: GENERAL: She denies any fever, chills or sweats in the last 3 days. CARDIOVASCULAR: No chest pain. PULMONARY: No cough or shortness of breath. GASTROINTESTINAL: No constipation. ENDOCRINE: She has diabetes mellitus. SKIN: No rashes. NEUROLOGIC: Her right leg has been weak for the last week. She had a recent fall. The rest of systems reviewed are negative except as stated in history of present illness. PHYSICAL EXAMINATION: VITAL SIGNS: Temperature is 98.1 degrees, pulse regular at 75, respiratory rate 16, blood pressure 182/70, oxygen saturation 99% on room air. HEENT: Eyes conjugate. Mouth: Tongue is midline. NECK: There is no cervical lymphadenopathy or thyroid enlargement. HEART: Reveals an S1, S2. There is no S3 or murmur. LUNGS: Clear. ABDOMEN: Soft with no hepatosplenomegaly, masses or tenderness. EXTREMITIES: Lower extremities without edema. Pedal pulses present. NEUROLOGIC: Coherent, got 5/5 bilateral hand materials management manager. Able to dorsi and plantar flex the left foot, bend the left knee and raise her left leg up in the air. The right leg she is able to dorsi and plantar flex the right foot, but cannot bend the right knee raise her right leg off the bed. Right knee, there is no effusion, redness or swelling. I can bend the right knee and raise her right leg in the air without any pain in the knee or hip. She does complain of some pain in the right hip and knee prior to admission. SKIN: No rashes. LABORATORY DATA: White count 4.6, hemoglobin 10.6, platelet count 166,000, 62 polys and 26 lymphocytes. Sodium 142, potassium 3.8, chloride 103, total CO2 of 32, BUN 26, creatinine 0.9, blood sugar 108. Liver function tests normal. Her CPK level was normal at 144. Troponin levels less than 0.017. Albumin 3.7. TSH suppressed at 0.019. Urinalysis showed only 1-4 white cells and 0 red blood cells. She had a CAT scan of the head done and there was no acute abnormality. She had marked ventriculomegaly, which was with some generalized volume loss, which is unchanged since 09/2018. She had a chest x-ray, which showed no acute abnormality. Electrocardiogram showed normal sinus rhythm with a left atrial abnormality ASSESSMENT: 1. Generalized weakness with a fall. 2. Dehydration. 3. Right leg weakness. 4. Anemia of chronic disease. 5. Diabetes mellitus type 2, on insulin. 6. Hypertension. 7. Cervical spondylosis. 8. Rheumatoid arthritis. PLAN: At this time is to admit her to the hospital as a full admit. Consult Dr. Montero for physical rehabilitation consultation. We will order physical and occupational therapy and start her on Lovenox for deep vein thrombosis prophylaxis. We will get an MRI of the brain to rule out a stroke, although I doubt that, but rule it out. Also consult Dr. Ferrell for Neurology for right leg weakness and also obtain a CAT scan of the cervical spine and lumbar spine. We will resume her home medications. Her blood pressure is high and we will order some p.r.n. clonidine in addition to her amlodipine, losartan and hydrochlorothiazide. Her dehydration is not bad enough that we should discontinue the hydrochlorothiazide and add health-enhanced blood pressure lowering. In addition, we will get a free T4 as her TSH level is suppressed. Repeat a CBC and BMP tomorrow. Place her on a diabetic diet. IV fluids have been ordered. NovoLog insulin sliding scale before meals t.i.d. has been ordered. We will continue Levemir insulin and metformin. She was given a dose of IV Rocephin, which we will not renew. We will continue methotrexate and her folic acid. DEVORA BOSCH MD DR: MONIQUE/azar JOB#: [id number] / [id number]
[2019-10-30 19:00] VITALS: BP 143/47
--- NOTE | 2019-10-30 20:02 | NUR ---
Patient returned to room 1815 and I was able to get her her supper tray and put her on the bedpan and give her metformin. Not able to do admission assessment, but did have almost all of her admission history and medication profile prior to her arrival on the floor. Report given to Anna HIRSCH.
[2019-10-30] MEDS: GABAPENTIN 300 MG CAPSULE. PO SCH (20:33)
[2019-10-30] MEDS: ENOXAPARIN 40 MG/0.4 ML SYRINGE. SQ SCH (20:34)
[2019-10-30] MEDS: oxyCODONE IR 5 MG TABLET PO PRN (20:34)
[2019-10-30] MEDS ORDERED: INSULIN GLARGINE SYRINGE. SQ SCH (21:00)
[2019-10-30 23:00] VITALS: BP 169/68
[2019-10-31 03:00] VITALS: BP 161/68
[2019-10-31 04:32] LABS: BASO % 0 % (0-3); EOS # 0.1 x10^3/uL (0.0-0.7); EOS % 2 % (0-3); HEMATOCRIT 29.3 % (36.0-47.0); HEMOGLOBIN 9.9 g/dL (12.0-15.5); LYMPH # 1.4 x10^3/uL (1.0-4.8); LYMPH % 39 % (24-48); MEAN CORPUSCULAR HEMOGLOBIN 31 pg (25-35); MEAN CORPUSCULAR HGB CONC 34 g/dL (31-37); MEAN CORPUSCULAR VOLUME 92 fL (79-100); MONO # 0.3 x10^3/uL (0.0-1.1); MONO % 8 % (0-9); NEUT # 1.9 x10^3/uL (1.8-7.7); NEUT % 51 % (31-73); PLATELET COUNT 154 x10^3/uL (140-400); RED BLOOD COUNT 3.18 x10^6/uL (3.50-5.40); RED CELL DISTRIBUTION WIDTH 15.2 % (11.5-14.5); WHITE BLOOD COUNT 3.7 x10^3/uL (4.0-11.0)
[2019-10-31 05:54] LABS: CALCIUM 8.4 mg/dL (8.5-10.1); CREATININE 0.7 mg/dL (0.6-1.0); GFR 98.2; MAGNESIUM 1.2 mg/dL (1.8-2.4); POTASSIUM 4.1 mmol/L (3.5-5.1)
[2019-10-31 06:03] LABS: CHOLESTEROL/HDL RATIO 2.4
[2019-10-31 06:55] VITALS: BP 138/49
[2019-10-31] MEDS: INSULIN LISPRO 300 UNITS/3 ML VIAL. SQ SCH ×3 (07:12→16:43)
--- NOTE | 2019-10-31 07:13 | NUR ---
Patients Blood sugar this am was 57. Melinda BEST gave patient 2 orange juice and breakfast. will recheck and continue to monitor.
[2019-10-31] MEDS: metFORMIN 500 MG TABLET PO SCH ×2 (07:14→16:45)
[2019-10-31] MEDS: TAMSULOSIN 0.4 MG CAP.ER.24H. PO SCH (08:41)
[2019-10-31] MEDS: FOLIC ACID 1 MG TABLET. PO SCH (08:41)
[2019-10-31] MEDS: GABAPENTIN 300 MG CAPSULE. PO SCH ×3 (08:41→21:15)
[2019-10-31] MEDS: LOSARTAN POTASSIUM 50 MG TABLET. PO SCH (08:41)
[2019-10-31] MEDS: hydroCHLOROthiazide 25 MG TABLET PO SCH (08:41)
[2019-10-31] MEDS: amLODIPine BESYLATE 10 MG TABLET PO SCH (08:42)
[2019-10-31] MEDS: IV 1/2 NORMAL SALINE 1,000 ML IV SCH (08:47)
[2019-10-31] MEDS: oxyCODONE IR 5 MG TABLET PO PRN (10:14)
[2019-10-31] MEDS ORDERED: BUPIVACAINE MPF 0.25% 10 ML VIAL. IJ ONE (10:30)
[2019-10-31] MEDS ORDERED: methylPREDNISolone ACETATE 40 MG/ML VIAL. IM ONE (10:30)
[2019-10-31] MEDS: DICLOFENAC SODIUM 1% TOPICAL GEL 100GM TUBE. TP SCH ×2 (10:51→21:16)
[2019-10-31] MEDS ORDERED: MAGNESIUM SULFATE 4GM 100 ML IV ONE (11:00)
[2019-10-31 11:14] VITALS: BP 169/60
--- NOTE | 2019-10-31 11:22 | PDOC ---
PROGRESS NOTES Subjective Subjective discussed with dr. woods who injected right SI joint. able to bend right knee and raise right leg slowly. ct scan of cervical spine shows spondylosis and ct scan of lumbar spine showed spinal stenosis worse at L3-3. x ray of right hip and right knee showed no fracture. magnesium low 1.2 blood sugar low and will d/c levemir insulin. constipated. Objective Objective Vital Signs Date Time Temp Pulse Resp B/P (MAP) Pulse Ox O2 Delivery O2 Flow Rate FiO2 10/31/19 11:14 98.8 71 17 169/60 (96) 96 Room Air 98.8 Intake and Output 10/31/19 07:00 Intake Total 1320 ml Output Total 200 ml Balance 1120 ml Intake Oral 320 ml IV Total 1000 ml Output Urine Total 200 ml # Voids 3 Physical Exam Abdomen: Soft Heart: Regular rate, Normal S1, Normal S2 Extremities: No edema General: Alert HEENT: Atraumatic Lungs: Clear to auscultation Neuro: Normal speech Psych/Mental Status: Mental status NL Skin: No rashes Assessment Assessment Problems1. Generalized weakness with a fall. 2. Dehydration. resolved with iv fluids 3. Right leg weakness. improved 4. Anemia of chronic disease. 5. Diabetes mellitus type 2, on insulin. fbs low 6. Hypertension. 7. Cervical spondylosis. Lumbar spinal stenosis hypomagnesemia 8. Rheumatoid arthritis. Medical Problems: (1) Back pain Status: Acute (2) UTI (lower urinary tract infection) Status: Acute Plan Plan of Care iv magnesium today PT and OT iv fluids lactulose today start daily miralax d/c levemir insulin Comment Review of Relevant I have reviewed the following items shruthi (where applicable) has been applied. Labs Laboratory Tests Test 10/30/19 14:01 10/30/19 14:10 10/30/19 18:03 10/30/19 20:46 White Blood Count 4.6 x10^3/uL (4.0-11.0) Red Blood Count 3.39 x10^6/uL (3.50-5.40) Hemoglobin 10.6 g/dL (12.0-15.5) Hematocrit 31.4 % (36.0-47.0) Mean Corpuscular Volume 93 fL (79-100) Mean Corpuscular Hemoglobin 31 pg (25-35) Mean Corpuscular Hemoglobin Concent 34 g/dL (31-37) Red Cell Distribution Width 15.0 % (11.5-14.5) Platelet Count 166 x10^3/uL (140-400) Neutrophils (%) (Auto) 62 % (31-73) Lymphocytes (%) (Auto) 26 % (24-48) Monocytes (%) (Auto) 10 % (0-9) Eosinophils (%) (Auto) 2 % (0-3) Basophils (%) (Auto) 0 % (0-3) Neutrophils # (Auto) 2.8 x10^3/uL (1.8-7.7) Lymphocytes # (Auto) 1.2 x10^3/uL (1.0-4.8) Monocytes # (Auto) 0.5 x10^3/uL (0.0-1.1) Eosinophils # (Auto) 0.1 x10^3/uL (0.0-0.7) Basophils # (Auto) 0.0 x10^3/uL (0.0-0.2) Sodium Level 142 mmol/L (136-145) Potassium Level 3.8 mmol/L (3.5-5.1) Chloride Level 102 mmol/L (98-107) Carbon Dioxide Level 32 mmol/L (21-32) Anion Gap 8 (6-14) Blood Urea Nitrogen 26 mg/dL (7-20) Creatinine 0.9 mg/dL (0.6-1.0) Estimated GFR (Cockcroft-Gault) 73.5 BUN/Creatinine Ratio 29 (6-20) Glucose Level 108 mg/dL (70-99) Calcium Level 9.2 mg/dL (8.5-10.1) Total Bilirubin 0.3 mg/dL (0.2-1.0) Aspartate Amino Transf (AST/SGOT) 20 U/L (15-37) Alanine Aminotransferase (ALT/SGPT) 31 U/L (14-59) Alkaline Phosphatase 72 U/L (46-116) Creatine Kinase 144 U/L (26-192) Troponin I Quantitative < 0.017 ng/mL (0.000-0.055) Total Protein 7.2 g/dL (6.4-8.2) Albumin 3.7 g/dL (3.4-5.0) Albumin/Globulin Ratio 1.1 (1.0-1.7) Thyroid Stimulating Hormone (TSH) 0.019 uIU/mL (0.358-3.74) Urine Collection Type U cath Urine Color Yellow Urine Clarity Clear Urine pH 7.5 (<5.0-8.0) Urine Specific [place] 1.020 (1.000-1.030) Urine Protein Negative mg/dL (NEG-TRACE) Urine Glucose (UA) Negative mg/dL (NEG) Urine Ketones (Stick) Negative mg/dL (NEG) Urine Blood Negative (NEG) Urine Nitrite Positive (NEG) Urine Bilirubin Negative (NEG) Urine Urobilinogen Dipstick 1.0 mg/dL (0.2 mg/dL) Urine Leukocyte Esterase Small (NEG) Urine RBC 0 /HPF (0-2) Urine WBC 1-4 /HPF (0-4) Urine Amorphous Sediment Present /HPF Urine Bacteria Many /HPF (0-FEW) Urine Hyaline Casts Moderate /HPF Urine Mucus Slight /LPF Glucose (Fingerstick) 114 mg/dL (70-99) 140 mg/dL (70-99) Test 10/31/19 03:10 10/31/19 03:15 10/31/19 06:51 10/31/19 10:35 White Blood Count 3.7 x10^3/uL (4.0-11.0) Red Blood Count 3.18 x10^6/uL (3.50-5.40) Hemoglobin 9.9 g/dL (12.0-15.5) Hematocrit 29.3 % (36.0-47.0) Mean Corpuscular Volume 92 fL (79-100) Mean Corpuscular Hemoglobin 31 pg (25-35) Mean Corpuscular Hemoglobin Concent 34 g/dL (31-37) Red Cell Distribution Width 15.2 % (11.5-14.5) Platelet Count 154 x10^3/uL (140-400) Neutrophils (%) (Auto) 51 % (31-73) Lymphocytes (%) (Auto) 39 % (24-48) Monocytes (%) (Auto) 8 % (0-9) Eosinophils (%) (Auto) 2 % (0-3) Basophils (%) (Auto) 0 % (0-3) Neutrophils # (Auto) 1.9 x10^3/uL (1.8-7.7) Lymphocytes # (Auto) 1.4 x10^3/uL (1.0-4.8) Monocytes # (Auto) 0.3 x10^3/uL (0.0-1.1) Eosinophils # (Auto) 0.1 x10^3/uL (0.0-0.7) Basophils # (Auto) 0.0 x10^3/uL (0.0-0.2) Free Thyroxine 0.96 ng/dL (0.76-1.46) Sodium Level 140 mmol/L (136-145) Potassium Level 4.1 mmol/L (3.5-5.1) Chloride Level 103 mmol/L (98-107) Carbon Dioxide Level 28 mmol/L (21-32) Anion Gap 9 (6-14) Blood Urea Nitrogen 19 mg/dL (7-20) Creatinine 0.7 mg/dL (0.6-1.0) Estimated GFR (Cockcroft-Gault) 98.2 Glucose Level 67 mg/dL (70-99) Calcium Level 8.4 mg/dL (8.5-10.1) Magnesium Level 1.2 mg/dL (1.8-2.4) Triglycerides Level 27 mg/dL (0-150) Cholesterol Level 102 mg/dL (0-200) LDL Cholesterol, Calculated 55 mg/dL (0-100) VLDL Cholesterol, Calculated 5 mg/dL (0-40) Non-HDL Cholesterol Calculated 60 mg/dL (0-129) HDL Cholesterol 42 mg/dL (40-60) Cholesterol/HDL Ratio 2.4 Glucose (Fingerstick) 57 mg/dL (70-99) 103 mg/dL (70-99) Laboratory Tests Test 10/30/19 14:01 10/30/19 14:10 10/30/19 18:03 10/30/19 20:46 White Blood Count 4.6 x10^3/uL (4.0-11.0) Red Blood Count 3.39 x10^6/uL (3.50-5.40) Hemoglobin 10.6 g/dL (12.0-15.5) Hematocrit 31.4 % (36.0-47.0) Mean Corpuscular Volume 93 fL (79-100) Mean Corpuscular Hemoglobin 31 pg (25-35) Mean Corpuscular Hemoglobin Concent 34 g/dL (31-37) Red Cell Distribution Width 15.0 % (11.5-14.5) Platelet Count 166 x10^3/uL (140-400) Neutrophils (%) (Auto) 62 % (31-73) Lymphocytes (%) (Auto) 26 % (24-48) Monocytes (%) (Auto) 10 % (0-9) Eosinophils (%) (Auto) 2 % (0-3) Basophils (%) (Auto) 0 % (0-3) Neutrophils # (Auto) 2.8 x10^3/uL (1.8-7.7) Lymphocytes # (Auto) 1.2 x10^3/uL (1.0-4.8) Monocytes # (Auto) 0.5 x10^3/uL (0.0-1.1) Eosinophils # (Auto) 0.1 x10^3/uL (0.0-0.7) Basophils # (Auto) 0.0 x10^3/uL (0.0-0.2) Sodium Level 142 mmol/L (136-145) Potassium Level 3.8 mmol/L (3.5-5.1) Chloride Level 102 mmol/L (98-107) Carbon Dioxide Level 32 mmol/L (21-32) Anion Gap 8 (6-14) Blood Urea Nitrogen 26 mg/dL (7-20) Creatinine 0.9 mg/dL (0.6-1.0) Estimated GFR (Cockcroft-Gault) 73.5 BUN/Creatinine Ratio 29 (6-20) Glucose Level 108 mg/dL (70-99) Calcium Level 9.2 mg/dL (8.5-10.1) Total Bilirubin 0.3 mg/dL (0.2-1.0) Aspartate Amino Transf (AST/SGOT) 20 U/L (15-37) Alanine Aminotransferase (ALT/SGPT) 31 U/L (14-59) Alkaline Phosphatase 72 U/L (46-116) Creatine Kinase 144 U/L (26-192) Troponin I Quantitative < 0.017 ng/mL (0.000-0.055) Total Protein 7.2 g/dL (6.4-8.2) Albumin 3.7 g/dL (3.4-5.0) Albumin/Globulin Ratio 1.1 (1.0-1.7) Thyroid Stimulating Hormone (TSH) 0.019 uIU/mL (0.358-3.74) Urine Collection Type U cath Urine Color Yellow Urine Clarity Clear Urine pH 7.5 (<5.0-8.0) Urine Specific [place] 1.020 (1.000-1.030) Urine Protein Negative mg/dL (NEG-TRACE) Urine Glucose (UA) Negative mg/dL (NEG) Urine Ketones (Stick) Negative mg/dL (NEG) Urine Blood Negative (NEG) Urine Nitrite Positive (NEG) Urine Bilirubin Negative (NEG) Urine Urobilinogen Dipstick 1.0 mg/dL (0.2 mg/dL) Urine Leukocyte Esterase Small (NEG) Urine RBC 0 /HPF (0-2) Urine WBC 1-4 /HPF (0-4) Urine Amorphous Sediment Present /HPF Urine Bacteria Many /HPF (0-FEW) Urine Hyaline Casts Moderate /HPF Urine Mucus Slight /LPF Glucose (Fingerstick) 114 mg/dL (70-99) 140 mg/dL (70-99) Test 10/31/19 03:10 10/31/19 03:15 10/31/19 06:51 10/31/19 10:35 White Blood Count 3.7 x10^3/uL (4.0-11.0) Red Blood Count 3.18 x10^6/uL (3.50-5.40) Hemoglobin 9.9 g/dL (12.0-15.5) Hematocrit 29.3 % (36.0-47.0) Mean Corpuscular Volume 92 fL (79-100) Mean Corpuscular Hemoglobin 31 pg (25-35) Mean Corpuscular Hemoglobin Concent 34 g/dL (31-37) Red Cell Distribution Width 15.2 % (11.5-14.5) Platelet Count 154 x10^3/uL (140-400) Neutrophils (%) (Auto) 51 % (31-73) Lymphocytes (%) (Auto) 39 % (24-48) Monocytes (%) (Auto) 8 % (0-9) Eosinophils (%) (Auto) 2 % (0-3) Basophils (%) (Auto) 0 % (0-3) Neutrophils # (Auto) 1.9 x10^3/uL (1.8-7.7) Lymphocytes # (Auto) 1.4 x10^3/uL (1.0-4.8) Monocytes # (Auto) 0.3 x10^3/uL (0.0-1.1) Eosinophils # (Auto) 0.1 x10^3/uL (0.0-0.7) Basophils # (Auto) 0.0 x10^3/uL (0.0-0.2) Free Thyroxine 0.96 ng/dL (0.76-1.46) Sodium Level 140 mmol/L (136-145) Potassium Level 4.1 mmol/L (3.5-5.1) Chloride Level 103 mmol/L (98-107) Carbon Dioxide Level 28 mmol/L (21-32) Anion Gap 9 (6-14) Blood Urea Nitrogen 19 mg/dL (7-20) Creatinine 0.7 mg/dL (0.6-1.0) Estimated GFR (Cockcroft-Gault) 98.2 Glucose Level 67 mg/dL (70-99) Calcium Level 8.4 mg/dL (8.5-10.1) Magnesium Level 1.2 mg/dL (1.8-2.4) Triglycerides Level 27 mg/dL (0-150) Cholesterol Level 102 mg/dL (0-200) LDL Cholesterol, Calculated 55 mg/dL (0-100) VLDL Cholesterol, Calculated 5 mg/dL (0-40) Non-HDL Cholesterol Calculated 60 mg/dL (0-129) HDL Cholesterol 42 mg/dL (40-60) Cholesterol/HDL Ratio 2.4 Glucose (Fingerstick) 57 mg/dL (70-99) 103 mg/dL (70-99) Medications Current Medications Sodium Chloride 1,000 ml @ 1,000 mls/hr 1X ONCE IV Last administered on 10/30/19at 14:41; Start 10/30/19 at 14:15; Stop 10/30/19 at 15:14; Status DC Ceftriaxone Sodium (Rocephin) 1 gm 1X ONCE IVP Last administered on 10/30/19at 16:04; Start 10/30/19 at 15:15; Stop 10/30/19 at 15:16; Status DC Ondansetron HCl (Zofran) 4 mg PRN Q8HRS PRN IV NAUSEA/VOMITING; Start 10/30/19 at 15:30; Stop 10/31/19 at 15:29 Sodium Chloride 1,000 ml @ 100 mls/hr Q10H IV Last administered on 10/30/19at 16:05; Start 10/30/19 at 15:17; Stop 10/30/19 at 16:22; Status DC Acetaminophen (Tylenol) 650 mg PRN Q4HRS PRN PO FEVER > 100.3'F; Start 10/30/19 at 15:30; Stop 10/31/19 at 15:29 Enoxaparin Sodium (Lovenox 40mg Syringe) 40 mg Q24H SQ Last administered on 10/30/19at 20:34; Start 10/30/19 at 21:00 Acetaminophen (Tylenol) 650 mg PRN Q6HRS PRN PO MILD PAIN / TEMP > 100.3'F; Start 10/30/19 at 16:15 Amlodipine Besylate (Norvasc) 10 mg DAILY PO Last administered on 10/31/19at 08:42; Start 10/31/19 at 09:00 Folic Acid (Folic Acid) 1 mg DAILY PO Last administered on 10/31/19at 08:41; Start 10/31/19 at 09:00 Gabapentin (Neurontin) 300 mg TID PO Last administered on 10/31/19 08:41; Start 10/30/19 at 21:00 Hydrochlorothiazide (Hydrodiuril) 25 mg DAILY PO Last administered on 10/31/19at 08:41; Start 10/31/19 at 09:00 Insulin Glargine (Lantus Syringe) 10 unit QHS SQ Last administered on 10/30/19at 21:05; Start 10/30/19 at 21:00; Stop 10/31/19 at 10:29; Status DC Losartan Potassium (Cozaar) 100 mg DAILY PO Last administered on 10/31/19at 08:41; Start 10/31/19 at 09:00 Metformin HCl (Glucophage) 1,000 mg BIDWMEALS PO Last administered on 10/30/19at 17:00; Start 10/30/19 at 17:00 Methotrexate (Rheumatrex) 15 mg WEEKLY PO Last administered on 10/30/19at 20:43; Start 10/30/19 at 18:00 Oxycodone HCl (Roxicodone) 5 mg PRN BID PRN PO SEVERE PAIN Last administered on 10/31/19at 10:14; Start 10/30/19 at 16:30 Tamsulosin HCl (Flomax) 0.4 mg DAILY PO Last administered on 10/31/19at 08:41; Start 10/31/19 at 09:00 Insulin Human Lispro (HumaLOG) 0-6 UNITS TIDWMEALS SQ ; Start 10/30/19 at 17:00 Sodium Chloride 1,000 ml @ 60 mls/hr [id number] IV Last administered on 10/31/19at 08:47; Start 10/30/19 at 16:15 Clonidine HCl (Catapres) 0.1 mg Q6HRS PRN PO HYPERTENSION; Start 10/30/19 at 16:15 Magnesium Hydroxide (Milk Of Magnesia) 2,400 mg PRN DAILY PRN PO CONSTIPATION; Start 10/30/19 at 16:45 Methylprednisolone Acetate (DEPO-Medrol 40MG VIAL) 40 mg 1X ONCE IM Last administered on 10/31/19at 10:30; Start 10/31/19 at 10:30; Stop 10/31/19 at 10:31; Status DC Bupivacaine HCl (Sensorcaine-Mpf 0.25%) 10 ml 1X ONCE IJ Last administered on 10/31/19at 10:30; Start 10/31/19 at 10:30; Stop 10/31/19 at 10:31; Status DC Diclofenac Sodium (Voltaren) 1 demetra BID TP Last administered on 10/31/19at 10:51; Start 10/31/19 at 10:00 Magnesium Sulfate 100 ml @ 25 mls/hr 1X ONCE IV Last administered on 10/31/19at 11:16; Start 10/31/19 at 11:00; Stop 10/31/19 at 14:59 Active Scripts Active Folic Acid 1 Mg Tablet 1 Mg PO DAILY Reported Levemir (Insulin Detemir) 100 Unit/1 Ml Vial 1 Unit SQ QHS Flomax (Tamsulosin Hcl) 0.4 Mg Cap.er.24h 1 Cap PO DAILY Percocet 5-325 Mg Tablet (Oxycodone/Acetaminophen) 1 Each Tablet 1 Tab PO PRN BID PRN MDD 2 Tablet(s) 5 Days Hydrocodone-Apap 5-325 (Hydrocodone Bit/Acetaminophen) 1 Tab Tablet 1 Tab PO PRN Q8HRS PRN Losartan Potassium 100 Mg Tablet 100 Mg PO DAILY Methotrexate (Methotrexate Sodium) 2.5 Mg Tablet 6 Tab PO WEEKLY 15mg Q Thursday Melatonin 10 Mg Capsule 1 Cap PO QHS PRN 30 Days Amlodipine Besylate 10 Mg Tablet 10 Mg PO DAILY Gabapentin (Gabapentin) 300 Mg Capsule 300 Mg PO TID Tylenol (Acetaminophen) 325 Mg Tablet 2 Tab PO PRN Q6HRS PRN Metformin Hcl 1,000 Mg Tablet 1,000 Mg PO BIDBFRMEAL Vitals/I & O Vital Sign - Last 24 Hours 10/30/19 10/30/19 10/30/19 10/30/19 13:56 14:45 15:15 16:05 Temp 98.1 98.1 Pulse 75 72 83 80 Resp 16 16 16 16 B/P (MAP) 182/70 (107) Pulse Ox 99 99 99 99 O2 Delivery Room Air 10/30/19 10/30/19 10/30/19 10/30/19 16:10 17:38 19:00 19:45 Temp 98.6 98.7 98.6 98.7 Pulse 83 80 74 Resp 16 16 18 B/P (MAP) 140/62 (88) 143/47 (79) Pulse Ox 99 100 98 O2 Delivery Room Air Room Air Room Air 10/30/19 10/30/19 10/30/19 10/31/19 20:34 21:48 23:00 03:00 Temp 98.2 98.9 98.2 98.9 Pulse 76 65 Resp 18 16 B/P (MAP) 169/68 (101) 161/68 (99) Pulse Ox 98 99 O2 Delivery Room Air Room Air Room Air Room Air 10/31/19 10/31/19 10/31/19 10/31/19 06:55 08:00 08:41 08:42 Temp 98.8 98.8 Pulse 69 69 69 Resp 16 B/P (MAP) 138/49 (78) 138/49 138/49 Pulse Ox 96 O2 Delivery Room Air Room Air 10/31/19 10/31/19 10:14 11:14 Temp 98.8 98.8 Pulse 71 Resp 16 17 B/P (MAP) 169/60 (96) Pulse Ox 96 O2 Delivery Room Air Room Air Intake and Output 10/30/19 10/30/19 10/31/19 15:00 23:00 07:00 Intake Total 1200 ml 120 ml Output Total 200 ml Balance 1000 ml 120 ml DEVORA BOSCH MD October 31, 2019 11:22
[2019-10-31] MEDS: POLYETHYLENE GLYCOL 3350 17 GM PACKET. PO SCH (11:39)
[2019-10-31] MEDS: LACTULOSE 20 GM/30 ML SOLUTION. PO SCH ×2 (12:48→13:11)
--- NOTE | 2019-10-31 13:53 | PDOC2 ---
NEUROLOGY CONSULT Date of Admission Date of Admission DATE: 10/31/19 TIME: 13:43 Reason for Consult Reason for Consult: Leg weakness Referring Physician Referring Physician: Dr. Holcomb Source Source: Chart review, Patient History of Present Illness History of Present Illness The patient is a 79-year-old right-handed female who fell at 1 AM yesterday morning. She has noticed right leg weakness for as long as a month. She has had back pain for several months. She has been using a walker for several years. She has known cervical and lumbar spinal stenosis and has had cervical surgery. She is not interested in any further back surgery. She has longstanding urinary and fecal incontinence as well. There is no history of stroke, seizure, or head injury. Past Medical History Cardiovascular: CHF, Hyperlipidemia CENTRAL NERVOUS SYSTEM: Other (Subdural hematoma 2014) GI: Constipation (Diarrhea), Gastritis Heme/Onc: Anemia NOS Psych: Depression Musculoskeletal: low back pain, Osteoarthritis Rheumatologic: Rheumatoid arthritis Renal/: UTI, Urinary Incontinence Endocrine: Diabetes (Retinopathy) Past Surgical History Past Surgical History: Appendectomy, Tonsillectomy, Hysterectomy, Other (Cervical spine, cystocele, IVC filter) Family History Family History: Other (Parents of old age) Social History Social History , lives alone, no alcohol or tobacco Current Medications Current Medications Current Medications Sodium Chloride 1,000 ml @ 1,000 mls/hr 1X ONCE IV Last administered on 10/30/19at 14:41; Start 10/30/19 at 14:15; Stop 10/30/19 at 15:14; Status DC Ceftriaxone Sodium (Rocephin) 1 gm 1X ONCE IVP Last administered on 10/30/19at 16:04; Start 10/30/19 at 15:15; Stop 10/30/19 at 15:16; Status DC Ondansetron HCl (Zofran) 4 mg PRN Q8HRS PRN IV NAUSEA/VOMITING; Start 10/30/19 at 15:30; Stop 10/31/19 at 15:29 Sodium Chloride 1,000 ml @ 100 mls/hr Q10H IV Last administered on 10/30/19at 16:05; Start 10/30/19 at 15:17; Stop 10/30/19 at 16:22; Status DC Acetaminophen (Tylenol) 650 mg PRN Q4HRS PRN PO FEVER > 100.3'F; Start 5/24/20 at 15:30; Stop 10/31/19 at 15:29 Enoxaparin Sodium (Lovenox 40mg Syringe) 40 mg Q24H SQ Last administered on 10/30/19 20:34; Start 10/30/19 at 21:00 Acetaminophen (Tylenol) 650 mg PRN Q6HRS PRN PO MILD PAIN / TEMP > 100.3'F; Start 10/30/19 at 16:15 Amlodipine Besylate (Norvasc) 10 mg DAILY PO Last administered on 10/31/19 08:42; Start 10/31/19 at 09:00 Folic Acid (Folic Acid) 1 mg DAILY PO Last administered on 10/31/19 08:41; Start 10/31/19 at 09:00 Gabapentin (Neurontin) 300 mg TID PO Last administered on 10/31/19 08:41; Start 10/30/19 at 21:00 Hydrochlorothiazide (Hydrodiuril) 25 mg DAILY PO Last administered on 10/31/19 08:41; Start 10/31/19 at 09:00 Insulin Glargine (Lantus Syringe) 10 unit QHS SQ Last administered on 10/30/19 21:05; Start 10/30/19 at 21:00; Stop 10/31/19 at 10:29; Status DC Losartan Potassium (Cozaar) 100 mg DAILY PO Last administered on 10/31/19 08:41; Start 10/31/19 at 09:00 Metformin HCl (Glucophage) 1,000 mg BIDWMEALS PO Last administered on 10/30/19 17:00; Start 10/30/19 at 17:00 Methotrexate (Rheumatrex) 15 mg WEEKLY PO Last administered on 10/30/19 20:43; Start 10/30/19 at 18:00 Oxycodone HCl (Roxicodone) 5 mg PRN BID PRN PO SEVERE PAIN Last administered on 10/31/19at 10:14; Start 10/30/19 at 16:30 Tamsulosin HCl (Flomax) 0.4 mg DAILY PO Last administered on 10/31/19 08:41; Start 10/31/19 at 09:00 Insulin Human Lispro (HumaLOG) 0-6 UNITS TIDWMEALS SQ ; Start 10/30/19 at 17:00 Sodium Chloride 1,000 ml @ 40 mls/hr Q24H IV Last administered on 10/31/19at 08:47; Start 10/30/19 at 16:15 Clonidine HCl (Catapres) 0.1 mg Q6HRS PRN PO HYPERTENSION; Start 10/30/19 at 16:15 Magnesium Hydroxide (Milk Of Magnesia) 2,400 mg PRN DAILY PRN PO CONSTIPATION; Start 10/30/19 at 16:45 Methylprednisolone Acetate (DEPO-Medrol 40MG VIAL) 40 mg 1X ONCE IM Last administered on 10/31/19at 10:30; Start 10/31/19 at 10:30; Stop 10/31/19 at 10:31; Status DC Bupivacaine HCl (Sensorcaine-Mpf 0.25%) 10 ml 1X ONCE IJ Last administered on 10/31/19at 10:30; Start 10/31/19 at 10:30; Stop 10/31/19 at 10:31; Status DC Diclofenac Sodium (Voltaren) 1 demetra BID TP Last administered on 10/31/19at 10:51; Start 10/31/19 at 10:00 Magnesium Sulfate 100 ml @ 25 mls/hr 1X ONCE IV Last administered on 10/31/19at 11:16; Start 10/31/19 at 11:00; Stop 10/31/19 at 14:59 Polyethylene Glycol (miraLAX PACKET) 17 gm DAILY PO Last administered on 10/31/19at 11:39; Start 10/31/19 at 12:00 Lactulose (Lactulose) 20 gm Q2H PO ; Start 10/31/19 at 13:00; Stop 10/31/19 at 15:01 Active Scripts Active Folic Acid 1 Mg Tablet 1 Mg PO DAILY Reported Levemir (Insulin Detemir) 100 Unit/1 Ml Vial 1 Unit SQ QHS Flomax (Tamsulosin Hcl) 0.4 Mg Cap.er.24h 1 Cap PO DAILY Percocet 5-325 Mg Tablet (Oxycodone/Acetaminophen) 1 Each Tablet 1 Tab PO PRN BID PRN MDD 2 Tablet(s) 5 Days Hydrocodone-Apap 5-325 (Hydrocodone Bit/Acetaminophen) 1 Tab Tablet 1 Tab PO PRN Q8HRS PRN Losartan Potassium 100 Mg Tablet 100 Mg PO DAILY Methotrexate (Methotrexate Sodium) 2.5 Mg Tablet 6 Tab PO WEEKLY 15mg Q Thursday Melatonin 10 Mg Capsule 1 Cap PO QHS PRN 30 Days Amlodipine Besylate 10 Mg Tablet 10 Mg PO DAILY Gabapentin (Gabapentin) 300 Mg Capsule 300 Mg PO TID Tylenol (Acetaminophen) 325 Mg Tablet 2 Tab PO PRN Q6HRS PRN Metformin Hcl 1,000 Mg Tablet 1,000 Mg PO BIDBFRMEAL Allergies Allergies: Coded Allergies: No Known Drug Allergies (Unverified , 09/28/14) ROS Review of System Negative for fever, chills, weight loss, shortness of breath, chest pain, indigestion, hematochezia, melena. Positive for dysuria. Full 14-point review of systems is negative. Physical Exam Physical Examination General: Well-developed, well-nourished black female in no acute distress HEENT: Normocephalic andatraumatic. Temporal arteriespulsatile and nontender. Neck: Supple without bruit, no meningismus Back: No particular deformity or point tenderness Musculoskeletal: Stability:see neurologic. Gait exam:see neurologic. Tone:see neurologic.Strength:see neurologic. Pulses: 2+ Neurological: Mental Status:intact, orientation, memory, attention span/concentration, language, fund of knowledge normal. Cranial Nerves:Pupils equal and reactive to light, extraocular movements areintact, visual taylor are full to confrontation. Facial sensation is normal. There is no facial asymmetry. Vestibulo-ocular reflex is intact. Palate elevates and tongue protrudes in midline. All other cranial related problems are negative except as mentioned before.Reflexes:1+ and symmetric with flexor plantar responses. Motor:5-/5 in the arms, 3-4/5 in the legs, worse on the right leg, with normal tone and bulk. Coordination:Finger-nose finger and [id number] testing are normal. Rapid alternating movements and fine finger movements are intact. Gait:Not tested. Sensory:Normal pinprick, decreased vibration appreciation in feet Vitals VITALS Vital Signs Date Time Temp Pulse Resp B/P (MAP) Pulse Ox O2 Delivery O2 Flow Rate FiO2 10/31/19 11:21 16 Room Air 10/31/19 11:14 98.8 71 169/60 (96) 96 98.8 Labs Labs Laboratory Tests Test 10/30/19 14:01 10/30/19 14:10 10/30/19 18:03 10/30/19 20:46 White Blood Count 4.6 x10^3/uL (4.0-11.0) Red Blood Count 3.39 x10^6/uL (3.50-5.40) Hemoglobin 10.6 g/dL (12.0-15.5) Hematocrit 31.4 % (36.0-47.0) Mean Corpuscular Volume 93 fL (79-100) Mean Corpuscular Hemoglobin 31 pg (25-35) Mean Corpuscular Hemoglobin Concent 34 g/dL (31-37) Red Cell Distribution Width 15.0 % (11.5-14.5) Platelet Count 166 x10^3/uL (140-400) Neutrophils (%) (Auto) 62 % (31-73) Lymphocytes (%) (Auto) 26 % (24-48) Monocytes (%) (Auto) 10 % (0-9) Eosinophils (%) (Auto) 2 % (0-3) Basophils (%) (Auto) 0 % (0-3) Neutrophils # (Auto) 2.8 x10^3/uL (1.8-7.7) Lymphocytes # (Auto) 1.2 x10^3/uL (1.0-4.8) Monocytes # (Auto) 0.5 x10^3/uL (0.0-1.1) Eosinophils # (Auto) 0.1 x10^3/uL (0.0-0.7) Basophils # (Auto) 0.0 x10^3/uL (0.0-0.2) Sodium Level 142 mmol/L (136-145) Potassium Level 3.8 mmol/L (3.5-5.1) Chloride Level 102 mmol/L (98-107) Carbon Dioxide Level 32 mmol/L (21-32) Anion Gap 8 (6-14) Blood Urea Nitrogen 26 mg/dL (7-20) Creatinine 0.9 mg/dL (0.6-1.0) Estimated GFR (Cockcroft-Gault) 73.5 BUN/Creatinine Ratio 29 (6-20) Glucose Level 108 mg/dL (70-99) Calcium Level 9.2 mg/dL (8.5-10.1) Total Bilirubin 0.3 mg/dL (0.2-1.0) Aspartate Amino Transf (AST/SGOT) 20 U/L (15-37) Alanine Aminotransferase (ALT/SGPT) 31 U/L (14-59) Alkaline Phosphatase 72 U/L (46-116) Creatine Kinase 144 U/L (26-192) Troponin I Quantitative < 0.017 ng/mL (0.000-0.055) Total Protein 7.2 g/dL (6.4-8.2) Albumin 3.7 g/dL (3.4-5.0) Albumin/Globulin Ratio 1.1 (1.0-1.7) Thyroid Stimulating Hormone (TSH) 0.019 uIU/mL (0.358-3.74) Urine Collection Type U cath Urine Color Yellow Urine Clarity Clear Urine pH 7.5 (<5.0-8.0) Urine Specific [place] 1.020 (1.000-1.030) Urine Protein Negative mg/dL (NEG-TRACE) Urine Glucose (UA) Negative mg/dL (NEG) Urine Ketones (Stick) Negative mg/dL (NEG) Urine Blood Negative (NEG) Urine Nitrite Positive (NEG) Urine Bilirubin Negative (NEG) Urine Urobilinogen Dipstick 1.0 mg/dL (0.2 mg/dL) Urine Leukocyte Esterase Small (NEG) Urine RBC 0 /HPF (0-2) Urine WBC 1-4 /HPF (0-4) Urine Amorphous Sediment Present /HPF Urine Bacteria Many /HPF (0-FEW) Urine Hyaline Casts Moderate /HPF Urine Mucus Slight /LPF Glucose (Fingerstick) 114 mg/dL (70-99) 140 mg/dL (70-99) Test 10/31/19 03:10 10/31/19 03:15 10/31/19 06:51 10/31/19 10:35 White Blood Count 3.7 x10^3/uL (4.0-11.0) Red Blood Count 3.18 x10^6/uL (3.50-5.40) Hemoglobin 9.9 g/dL (12.0-15.5) Hematocrit 29.3 % (36.0-47.0) Mean Corpuscular Volume 92 fL (79-100) Mean Corpuscular Hemoglobin 31 pg (25-35) Mean Corpuscular Hemoglobin Concent 34 g/dL (31-37) Red Cell Distribution Width 15.2 % (11.5-14.5) Platelet Count 154 x10^3/uL (140-400) Neutrophils (%) (Auto) 51 % (31-73) Lymphocytes (%) (Auto) 39 % (24-48) Monocytes (%) (Auto) 8 % (0-9) Eosinophils (%) (Auto) 2 % (0-3) Basophils (%) (Auto) 0 % (0-3) Neutrophils # (Auto) 1.9 x10^3/uL (1.8-7.7) Lymphocytes # (Auto) 1.4 x10^3/uL (1.0-4.8) Monocytes # (Auto) 0.3 x10^3/uL (0.0-1.1) Eosinophils # (Auto) 0.1 x10^3/uL (0.0-0.7) Basophils # (Auto) 0.0 x10^3/uL (0.0-0.2) Free Thyroxine 0.96 ng/dL (0.76-1.46) Sodium Level 140 mmol/L (136-145) Potassium Level 4.1 mmol/L (3.5-5.1) Chloride Level 103 mmol/L (98-107) Carbon Dioxide Level 28 mmol/L (21-32) Anion Gap 9 (6-14) Blood Urea Nitrogen 19 mg/dL (7-20) Creatinine 0.7 mg/dL (0.6-1.0) Estimated GFR (Cockcroft-Gault) 98.2 Glucose Level 67 mg/dL (70-99) Calcium Level 8.4 mg/dL (8.5-10.1) Magnesium Level 1.2 mg/dL (1.8-2.4) Triglycerides Level 27 mg/dL (0-150) Cholesterol Level 102 mg/dL (0-200) LDL Cholesterol, Calculated 55 mg/dL (0-100) VLDL Cholesterol, Calculated 5 mg/dL (0-40) Non-HDL Cholesterol Calculated 60 mg/dL (0-129) HDL Cholesterol 42 mg/dL (40-60) Cholesterol/HDL Ratio 2.4 Glucose (Fingerstick) 57 mg/dL (70-99) 103 mg/dL (70-99) Laboratory Tests Test 10/30/19 14:01 10/30/19 14:10 10/30/19 18:03 10/30/19 20:46 White Blood Count 4.6 x10^3/uL (4.0-11.0) Red Blood Count 3.39 x10^6/uL (3.50-5.40) Hemoglobin 10.6 g/dL (12.0-15.5) Hematocrit 31.4 % (36.0-47.0) Mean Corpuscular Volume 93 fL (79-100) Mean Corpuscular Hemoglobin 31 pg (25-35) Mean Corpuscular Hemoglobin Concent 34 g/dL (31-37) Red Cell Distribution Width 15.0 % (11.5-14.5) Platelet Count 166 x10^3/uL (140-400) Neutrophils (%) (Auto) 62 % (31-73) Lymphocytes (%) (Auto) 26 % (24-48) Monocytes (%) (Auto) 10 % (0-9) Eosinophils (%) (Auto) 2 % (0-3) Basophils (%) (Auto) 0 % (0-3) Neutrophils # (Auto) 2.8 x10^3/uL (1.8-7.7) Lymphocytes # (Auto) 1.2 x10^3/uL (1.0-4.8) Monocytes # (Auto) 0.5 x10^3/uL (0.0-1.1) Eosinophils # (Auto) 0.1 x10^3/uL (0.0-0.7) Basophils # (Auto) 0.0 x10^3/uL (0.0-0.2) Sodium Level 142 mmol/L (136-145) Potassium Level 3.8 mmol/L (3.5-5.1) Chloride Level 102 mmol/L (98-107) Carbon Dioxide Level 32 mmol/L (21-32) Anion Gap 8 (6-14) Blood Urea Nitrogen 26 mg/dL (7-20) Creatinine 0.9 mg/dL (0.6-1.0) Estimated GFR (Cockcroft-Gault) 73.5 BUN/Creatinine Ratio 29 (6-20) Glucose Level 108 mg/dL (70-99) Calcium Level 9.2 mg/dL (8.5-10.1) Total Bilirubin 0.3 mg/dL (0.2-1.0) Aspartate Amino Transf (AST/SGOT) 20 U/L (15-37) Alanine Aminotransferase (ALT/SGPT) 31 U/L (14-59) Alkaline Phosphatase 72 U/L (46-116) Creatine Kinase 144 U/L (26-192) Troponin I Quantitative < 0.017 ng/mL (0.000-0.055) Total Protein 7.2 g/dL (6.4-8.2) Albumin 3.7 g/dL (3.4-5.0) Albumin/Globulin Ratio 1.1 (1.0-1.7) Thyroid Stimulating Hormone (TSH) 0.019 uIU/mL (0.358-3.74) Urine Collection Type U cath Urine Color Yellow Urine Clarity Clear Urine pH 7.5 (<5.0-8.0) Urine Specific [place] 1.020 (1.000-1.030) Urine Protein Negative mg/dL (NEG-TRACE) Urine Glucose (UA) Negative mg/dL (NEG) Urine Ketones (Stick) Negative mg/dL (NEG) Urine Blood Negative (NEG) Urine Nitrite Positive (NEG) Urine Bilirubin Negative (NEG) Urine Urobilinogen Dipstick 1.0 mg/dL (0.2 mg/dL) Urine Leukocyte Esterase Small (NEG) Urine RBC 0 /HPF (0-2) Urine WBC 1-4 /HPF (0-4) Urine Amorphous Sediment Present /HPF Urine Bacteria Many /HPF (0-FEW) Urine Hyaline Casts Moderate /HPF Urine Mucus Slight /LPF Glucose (Fingerstick) 114 mg/dL (70-99) 140 mg/dL (70-99) Test 10/31/19 03:10 10/31/19 03:15 10/31/19 06:51 10/31/19 10:35 White Blood Count 3.7 x10^3/uL (4.0-11.0) Red Blood Count 3.18 x10^6/uL (3.50-5.40) Hemoglobin 9.9 g/dL (12.0-15.5) Hematocrit 29.3 % (36.0-47.0) Mean Corpuscular Volume 92 fL (79-100) Mean Corpuscular Hemoglobin 31 pg (25-35) Mean Corpuscular Hemoglobin Concent 34 g/dL (31-37) Red Cell Distribution Width 15.2 % (11.5-14.5) Platelet Count 154 x10^3/uL (140-400) Neutrophils (%) (Auto) 51 % (31-73) Lymphocytes (%) (Auto) 39 % (24-48) Monocytes (%) (Auto) 8 % (0-9) Eosinophils (%) (Auto) 2 % (0-3) Basophils (%) (Auto) 0 % (0-3) Neutrophils # (Auto) 1.9 x10^3/uL (1.8-7.7) Lymphocytes # (Auto) 1.4 x10^3/uL (1.0-4.8) Monocytes # (Auto) 0.3 x10^3/uL (0.0-1.1) Eosinophils # (Auto) 0.1 x10^3/uL (0.0-0.7) Basophils # (Auto) 0.0 x10^3/uL (0.0-0.2) Free Thyroxine 0.96 ng/dL (0.76-1.46) Sodium Level 140 mmol/L (136-145) Potassium Level 4.1 mmol/L (3.5-5.1) Chloride Level 103 mmol/L (98-107) Carbon Dioxide Level 28 mmol/L (21-32) Anion Gap 9 (6-14) Blood Urea Nitrogen 19 mg/dL (7-20) Creatinine 0.7 mg/dL (0.6-1.0) Estimated GFR (Cockcroft-Gault) 98.2 Glucose Level 67 mg/dL (70-99) Calcium Level 8.4 mg/dL (8.5-10.1) Magnesium Level 1.2 mg/dL (1.8-2.4) Triglycerides Level 27 mg/dL (0-150) Cholesterol Level 102 mg/dL (0-200) LDL Cholesterol, Calculated 55 mg/dL (0-100) VLDL Cholesterol, Calculated 5 mg/dL (0-40) Non-HDL Cholesterol Calculated 60 mg/dL (0-129) HDL Cholesterol 42 mg/dL (40-60) Cholesterol/HDL Ratio 2.4 Glucose (Fingerstick) 57 mg/dL (70-99) 103 mg/dL (70-99) Images Images Lumbar spine CT without contrast. HISTORY: Right leg weakness. TECHNIQUE: Computed tomographic images of the lumbar spine were obtained without contrast. Multiplanar reformatting was performed. *One or more of the following individualized dose reduction techniques were utilized for this examination: 1. Automated exposure control. 2. Adjustment of the mA and/or kV according to patient size. 3. Use of iterative reconstruction technique. COMPARISON: MRI dated 08/04/2019. FINDINGS: There is mild lumbar scoliosis. There is mild retrolisthesis of T12 on L1 and L1 on L2. There is grade 1 anterolisthesis of L3 on L4. There is a chronic left superior endplate compression fracture with Schmorl's node at L2. No acute fracture seen. There is degenerative endplate remodeling with disc space narrowing, osteophytosis, Schmorl's node formation and vacuum phenomenon at all levels, with exception of L2-L3. There is multilevel facet arthropathy. At T12-L1, there is a posterior central disc protrusion superimposed on a disc bulge and endplate osteophytosis. There is mild bilateral facet arthropathy. There is mild retrolisthesis. There is mild left foraminal and central canal stenosis. At L1-L2, there is a shallow broad-based posterior disc protrusion superimposed on a disc bulge and endplate osteophytosis. There is mild bilateral facet arthropathy. There is mild central canal stenosis. At L2-L3, there is a disc bulge and endplate remodeling. There is moderate left facet arthropathy. There is no stenosis. At L3-L4, there is a disc bulge and endplate ossified ptosis. There is severe bilateral facet arthropathy. There is hypertrophy of the ligament of flavum. There is grade 1 anterolisthesis. There is mild to moderate right and moderate left foraminal stenosis. There is severe central canal stenosis. At L4-L5, there is a broad-based left paracentral to foraminal disc osteophyte complex superimposed on a disc bulge and endplate osteophytosis. There is mild bilateral facet arthropathy. There is hypertrophy of the ligamentum flavum. There is mild bilateral foraminal stenosis. There is moderate central canal stenosis. At L5-S1, there is a disc bulge and endplate osteophytosis. There is moderate right and mild left foraminal stenosis. Evaluation of the lower thorax demonstrates bilateral lower lobe atelectasis. There is an IVC filter in expected position. There is urinary bladder wall thickening and there are urinary bladder diverticula. This can be seen with chronic obstruction. There is bone demineralization. There is vacuum phenomenon and subchondral sclerosis involving the sacroiliac joints. IMPRESSION: 1. Multilevel degenerative change throughout the lumbar spine and lower thoracic spine, described in detail above. This results in stenosis at the aforementioned levels. The central canal stenosis is most significant at L3-L4. 2. Chronic mild superior endplate depression deformity at L2. There is no acute osseous finding. 3. Lumbar scoliosis and multilevel listhesis, described above. Cervical spine CT without contrast. HISTORY: Leg weakness.. TECHNIQUE: Computed tomographic images of the cervical spine were obtained without contrast. Multiplanar reformatting was performed. *One or more of the following individualized dose reduction techniques were utilized for this examination: 1. Automated exposure control. 2. Adjustment of the mA and/or kV according to patient size. 3. Use of iterative reconstruction technique. COMPARISON: 10/04/2018. FINDINGS: There is severe cervical kyphosis. There is minimal anterolisthesis of C3 on C4. There are laminotomy changes with posterior spinal fusion instrumentation at C3 through C6. There is degenerative endplate remodeling with disc space narrowing and osteophytosis primarily at the lower cervical levels and C2-C3. There is bone demineralization. Evaluation of the skull base and posterior fossa demonstrates dilatation of the occipital horns of the lateral ventricles due to cerebral atrophy. The possibility of hydrocephalus is not excluded on this [id number]. There is a heterogeneous thyroid containing multiple nodules, cysts and calcifications. There is suspected chronic subluxation of the sternal clavicular joints. There is biapical pleural parenchymal scarring. There is no neck lymphadenopathy. The combination of degenerative changes results in mild left foraminal stenosis at C2-C3, moderate left foraminal stenosis C5-C6 and mild left foraminal stenosis at C6-C7. IMPRESSION: 1. Multilevel degenerative change involving the cervical spine, described above. This is associated with left foraminal stenosis at C2-C3, C5-C6 and C6-C7. 2. Laminectomy changes with instrumented posterior fusion at C3-C6. No central canal stenosis is seen. 3. Cervical kyphosis. 4. Bone demineralization. 5. Suspected thyroid goiter. Assessment/Plan Assessment/Plan Impression: Leg weakness due to combination of diabetic peripheral neuropathy and lumbar mul tilevel spondylosis and spinal stenosis. She also has cervical spondylosis without obvious myelopathy although this may be masked due to her neuropathy. This is a subacute presentation on top of chronic disease. Recommendations: The patient refuses immediate surgery and I am not sure it would help much anyway. Therefore pursue conservative management. She has seen the pain clinic in the past, Dr. Salamanca. She will have rehabilitation modalities under the direction of Dr. Montero. She needs to be transferred to longterm unit for a good rehab trial. Only if she fails this would I consult neurosurgery, again, the patient is very reluctant to have any further back surgery. I fully discussed these issues with the patient and answered her questions. Thank you for letting me help with the patient's care. PHUONG MITCHELL MD October 31, 2019 13:53
[2019-10-31 14:23] VITALS: BP 120/50
[2019-10-31] MEDS ORDERED: VANCOMYCIN 1.5 GM in IV NORMAL SALINE 500ML BAG 500 ML IV ONE (15:30)
[2019-10-31] MEDS: VANCOMYCIN PER PHARMACY MC PRN (16:21)
--- NOTE | 2019-10-31 16:21 | NUR ---
Pharmacy Vancomycin Dosing Note S:Consulted to monitor and dose vancomycin started 10/31/19. O:MIS LEE is a 79 year old F with bacteremia. Height: 5 feet, 7 inches Weight: 66.4 kg Dosing Weight: Actual Other Antibiotics: N/A LABS: Last BUN: 19 Last Creatinine: 0.7 Creatinine Clearance: 45 mL/min Last WBC: 3.7 Last Procalcitonin: Tmax (past 24 hours): 98.8 Microbiology: BLOOD CX (10/29): [facility] I/O: 1300/200 A: Patient requires vancomycin for bacteremia, goal trough 15-20 mcg/ml. Her SCr is 0.7 with an eCrCl ~ 45 ml/min (using SCr=1). Initiate the following: P: 1. Initiate Vancomycin 1500 mg IV x 1 dose, then 1000 mg IV q18h 2. Draw vancomycin trough on 11/02/19 @ 0230 3. Pharmacy will continue to monitor, follow and adjust therapy as needed. CLAUDIA CHASE [facility], 10/31/19 [id number]
[2019-10-31 19:00] VITALS: BP 111/78
--- NOTE | 2019-10-31 20:10 | CONS ---
DATE OF CONSULTATION: 10/31/2019 ATTENDING PHYSICIAN: Troy Holcomb MD REASON FOR CONSULTATION: The patient was seen at the request of Dr. Holcomb for rehab evaluation. LOCATION: She is in room 402. 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 The patient is well known to me. The patient with cervical spinal stenosis with spastic quadriparesis, status post cervical spine decompression surgery done in the past with residual mobility and self-care limitations. Also, diabetes mellitus with peripheral neuropathy, chronic lower back pain from degenerative disk disease and degenerative joints of lumbar vertebrae with associated lumbar spinal stenosis and degenerative joint disease of both knees with some pain in right knee and also chronic neck and upper back pain. The patient apparently having some increasing back pain without any specific injury, pain radiating to both lower extremities. She also noted some weakness in her lower extremities. She apparently had a fall on the evening of 10/28, admitted through the Emergency Room on 10/29. The patient was found with 1-4 white blood cells in the urine. The patient denies any dysuria. The patient is not known allergic to any medication. She denies any trouble with her bowel or bladder control. She had a CT scan of cervical and lumbar spine, which revealed multilevel degenerative disk disease and degenerative joint disease of cervical and lumbar vertebrae with some degree of central spinal and neural foraminal compromise, more so at L3-L4 level. The patient is status post tonsillectomy, hysterectomy, appendectomy. PAST MEDICAL HISTORY: Also includes rheumatoid arthritis, hypertension, osteoarthritis, diabetic retinopathy, gastritis and anemia. Her in July after a stay at long-term care facility with renal failure. The patient lives alone at present time. PHYSICAL EXAMINATION: Today revealed an elderly female. She is alert, oriented to time, place, person and circumstance and follows commands appropriately, moves all 4 extremities voluntarily where she had 4/5 grade muscle strength with relatively increased weakness in posterior shoulder girdle muscles and hand intrinsic muscles. Deep tendon reflexes are decreased overall with absent right knee and both ankle jerks. She had equal perception of touch and pinprick sensation bilaterally. She can roll from side to side by herself, but she requires some help in coming to a sitting position and did take some time for her to scoop to the edge of the bed. While she is trying to stand up, she leans backwards requiring assistance and she had significant difficulty to advance her feet. She had crepitus on range of motion of her knee joint with mild knee joint effusion. She had tenderness to palpation over posterior shoulder girdle muscles, over cervical, upper thoracic and lumbar paraspinal muscles extending over to sacroiliac joint area and straight leg raising test is negative bilaterally. Her skin is intact at this time. She had free range of motion of both hip joints. ASSESSMENT: Mobility and self-care limitation in a patient with degenerative disk disease and degenerative joint disease of cervical and lumbar vertebrae with cervical and lumbar spinal stenosis, status post cervical decompression laminectomy in the past, also diabetes mellitus with peripheral neuropathy, history of rheumatoid arthritis, degenerative joint disease of both knees, diabetic retinopathy, history of gastritis and anemia and probable urinary tract infection. RECOMMENDATION: To proceed with injecting painful right sacroiliac joint area, which I performed under aseptic skin technique after skin preparation using alcohol swab with 1 mL of 40 mg per 1 mL of Depo-Medrol and 2 mL of 0.25% Marcaine solution and she tolerated the procedure satisfactorily without any side effects. To also ask pain clinic to consider lumbar epidural steroid injections and whenever they can do it to consider injecting painful right knee joint to get her up with a lumbar support. Hopefully, she needs transfer to retirement or Rehab Unit for continued care when medically stable. Dr. Holcomb, I appreciate asking me to participate in the care of this interesting patient. I will be glad to see her for followup with you on an as needed basis. BELLO SHEPPARD MD DR: HEMAL/azar JOB#: [id number] / [id number]
[2019-10-31] MEDS: ENOXAPARIN 40 MG/0.4 ML SYRINGE. SQ SCH (21:16)
[2019-10-31 23:00] VITALS: BP 129/72
[2019-11-01 03:00] VITALS: BP 142/67
[2019-11-01 05:14] LABS: CALCIUM 8.5 mg/dL (8.5-10.1); CREATININE 0.8 mg/dL (0.6-1.0); GFR 84.2; MAGNESIUM 1.7 mg/dL (1.8-2.4)
[2019-11-01 07:05] VITALS: BP 102/48
--- NOTE | 2019-11-01 08:45 | PDOC ---
PROGRESS NOTES Assessment Problems Medical Problems: (1) Back pain Status: Acute (2) UTI (lower urinary tract infection) Status: Acute Leg weakness due to combination of diabetic peripheral neuropathy and lumbar multilevel spondylosis and spinal stenosis. She also has cervical spondylosis without obvious myelopathy although this may be masked due to her neuropathy. This is a subacute presentation on top of chronic disease. Plan The patient refuses immediate surgery and I am not sure it would help much anyway. Conservative management. Outpatient pain clinic Rehabilitation modalities under the direction of Dr. Montero, he did SI joint injection, which helped. correction unit Brain MRI canceled, no evidence of stroke Subjective Feels a little better Objective Vital Signs Date Time Temp Pulse Resp B/P (MAP) Pulse Ox O2 Delivery O2 Flow Rate FiO2 11/01/19 07:05 97.8 72 16 102/48 (66) 96 Room Air 97.8 Intake and Output 11/01/19 07:00 Intake Total 1420 ml Balance 1420 ml Intake Oral 1320 ml IV Total 100 ml # Voids 8 # Bowel Movements 2 PHYSICAL EXAM Alert. Oriented to time, place and person. PERRL. EOMI. CN: no focal findings. Muscle tone: normal. Muscle strength: 5-/5 in the arms, 3-4/5 in the legs, worse on the right leg DTR:1+ Plantar reflex: flexor Gait: not examined in bed. Sensory exam: decreased vibration appreciation in feet No cerebellar signs elicited. Review of Relevant I have reviewed the following items shruthi (where applicable) has been applied. Labs Laboratory Tests Test 10/30/19 14:01 10/30/19 14:10 10/30/19 18:03 10/30/19 20:46 White Blood Count 4.6 x10^3/uL (4.0-11.0) Red Blood Count 3.39 x10^6/uL (3.50-5.40) Hemoglobin 10.6 g/dL (12.0-15.5) Hematocrit 31.4 % (36.0-47.0) Mean Corpuscular Volume 93 fL (79-100) Mean Corpuscular Hemoglobin 31 pg (25-35) Mean Corpuscular Hemoglobin Concent 34 g/dL (31-37) Red Cell Distribution Width 15.0 % (11.5-14.5) Platelet Count 166 x10^3/uL (140-400) Neutrophils (%) (Auto) 62 % (31-73) Lymphocytes (%) (Auto) 26 % (24-48) Monocytes (%) (Auto) 10 % (0-9) Eosinophils (%) (Auto) 2 % (0-3) Basophils (%) (Auto) 0 % (0-3) Neutrophils # (Auto) 2.8 x10^3/uL (1.8-7.7) Lymphocytes # (Auto) 1.2 x10^3/uL (1.0-4.8) Monocytes # (Auto) 0.5 x10^3/uL (0.0-1.1) Eosinophils # (Auto) 0.1 x10^3/uL (0.0-0.7) Basophils # (Auto) 0.0 x10^3/uL (0.0-0.2) Sodium Level 142 mmol/L (136-145) Potassium Level 3.8 mmol/L (3.5-5.1) Chloride Level 102 mmol/L (98-107) Carbon Dioxide Level 32 mmol/L (21-32) Anion Gap 8 (6-14) Blood Urea Nitrogen 26 mg/dL (7-20) Creatinine 0.9 mg/dL (0.6-1.0) Estimated GFR (Cockcroft-Gault) 73.5 BUN/Creatinine Ratio 29 (6-20) Glucose Level 108 mg/dL (70-99) Calcium Level 9.2 mg/dL (8.5-10.1) Total Bilirubin 0.3 mg/dL (0.2-1.0) Aspartate Amino Transf (AST/SGOT) 20 U/L (15-37) Alanine Aminotransferase (ALT/SGPT) 31 U/L (14-59) Alkaline Phosphatase 72 U/L (46-116) Creatine Kinase 144 U/L (26-192) Troponin I Quantitative < 0.017 ng/mL (0.000-0.055) Total Protein 7.2 g/dL (6.4-8.2) Albumin 3.7 g/dL (3.4-5.0) Albumin/Globulin Ratio 1.1 (1.0-1.7) Thyroid Stimulating Hormone (TSH) 0.019 uIU/mL (0.358-3.74) Urine Collection Type U cath Urine Color Yellow Urine Clarity Clear Urine pH 7.5 (<5.0-8.0) Urine Specific [place] 1.020 (1.000-1.030) Urine Protein Negative mg/dL (NEG-TRACE) Urine Glucose (UA) Negative mg/dL (NEG) Urine Ketones (Stick) Negative mg/dL (NEG) Urine Blood Negative (NEG) Urine Nitrite Positive (NEG) Urine Bilirubin Negative (NEG) Urine Urobilinogen Dipstick 1.0 mg/dL (0.2 mg/dL) Urine Leukocyte Esterase Small (NEG) Urine RBC 0 /HPF (0-2) Urine WBC 1-4 /HPF (0-4) Urine Amorphous Sediment Present /HPF Urine Bacteria Many /HPF (0-FEW) Urine Hyaline Casts Moderate /HPF Urine Mucus Slight /LPF Glucose (Fingerstick) 114 mg/dL (70-99) 140 mg/dL (70-99) Test 10/31/19 03:10 10/31/19 03:15 10/31/19 06:51 10/31/19 10:35 White Blood Count 3.7 x10^3/uL (4.0-11.0) Red Blood Count 3.18 x10^6/uL (3.50-5.40) Hemoglobin 9.9 g/dL (12.0-15.5) Hematocrit 29.3 % (36.0-47.0) Mean Corpuscular Volume 92 fL (79-100) Mean Corpuscular Hemoglobin 31 pg (25-35) Mean Corpuscular Hemoglobin Concent 34 g/dL (31-37) Red Cell Distribution Width 15.2 % (11.5-14.5) Platelet Count 154 x10^3/uL (140-400) Neutrophils (%) (Auto) 51 % (31-73) Lymphocytes (%) (Auto) 39 % (24-48) Monocytes (%) (Auto) 8 % (0-9) Eosinophils (%) (Auto) 2 % (0-3) Basophils (%) (Auto) 0 % (0-3) Neutrophils # (Auto) 1.9 x10^3/uL (1.8-7.7) Lymphocytes # (Auto) 1.4 x10^3/uL (1.0-4.8) Monocytes # (Auto) 0.3 x10^3/uL (0.0-1.1) Eosinophils # (Auto) 0.1 x10^3/uL (0.0-0.7) Basophils # (Auto) 0.0 x10^3/uL (0.0-0.2) Free Thyroxine 0.96 ng/dL (0.76-1.46) Sodium Level 140 mmol/L (136-145) Potassium Level 4.1 mmol/L (3.5-5.1) Chloride Level 103 mmol/L (98-107) Carbon Dioxide Level 28 mmol/L (21-32) Anion Gap 9 (6-14) Blood Urea Nitrogen 19 mg/dL (7-20) Creatinine 0.7 mg/dL (0.6-1.0) Estimated GFR (Cockcroft-Gault) 98.2 Glucose Level 67 mg/dL (70-99) Calcium Level 8.4 mg/dL (8.5-10.1) Magnesium Level 1.2 mg/dL (1.8-2.4) Triglycerides Level 27 mg/dL (0-150) Cholesterol Level 102 mg/dL (0-200) LDL Cholesterol, Calculated 55 mg/dL (0-100) VLDL Cholesterol, Calculated 5 mg/dL (0-40) Non-HDL Cholesterol Calculated 60 mg/dL (0-129) HDL Cholesterol 42 mg/dL (40-60) Cholesterol/HDL Ratio 2.4 Glucose (Fingerstick) 57 mg/dL (70-99) 103 mg/dL (70-99) Test 10/31/19 13:53 10/31/19 16:21 10/31/19 21:03 11/01/19 03:20 Glucose (Fingerstick) 219 mg/dL (70-99) 220 mg/dL (70-99) 278 mg/dL (70-99) Sodium Level 136 mmol/L (136-145) Potassium Level 4.0 mmol/L (3.5-5.1) Chloride Level 100 mmol/L (98-107) Carbon Dioxide Level 28 mmol/L (21-32) Anion Gap 8 (6-14) Blood Urea Nitrogen 16 mg/dL (7-20) Creatinine 0.8 mg/dL (0.6-1.0) Estimated GFR (Cockcroft-Gault) 84.2 Glucose Level 208 mg/dL (70-99) Calcium Level 8.5 mg/dL (8.5-10.1) Magnesium Level 1.7 mg/dL (1.8-2.4) Test 11/01/19 07:06 Glucose (Fingerstick) 166 mg/dL (70-99) Laboratory Tests Test 10/31/19 10:35 10/31/19 13:53 10/31/19 16:21 10/31/19 21:03 Glucose (Fingerstick) 103 mg/dL (70-99) 219 mg/dL (70-99) 220 mg/dL (70-99) 278 mg/dL (70-99) Test 11/01/19 03:20 11/01/19 07:06 Sodium Level 136 mmol/L (136-145) Potassium Level 4.0 mmol/L (3.5-5.1) Chloride Level 100 mmol/L (98-107) Carbon Dioxide Level 28 mmol/L (21-32) Anion Gap 8 (6-14) Blood Urea Nitrogen 16 mg/dL (7-20) Creatinine 0.8 mg/dL (0.6-1.0) Estimated GFR (Cockcroft-Gault) 84.2 Glucose Level 208 mg/dL (70-99) Calcium Level 8.5 mg/dL (8.5-10.1) Magnesium Level 1.7 mg/dL (1.8-2.4) Glucose (Fingerstick) 166 mg/dL (70-99) Microbiology 10/30/19 Blood Culture - Final, Complete Medications Current Medications Sodium Chloride 1,000 ml @ 1,000 mls/hr 1X ONCE IV Last administered on 10/30/19at 14:41; Start 10/30/19 at 14:15; Stop 10/30/19 at 15:14; Status DC Ceftriaxone Sodium (Rocephin) 1 gm 1X ONCE IVP Last administered on 10/30/19at 16:04; Start 10/30/19 at 15:15; Stop 10/30/19 at 15:16; Status DC Ondansetron HCl (Zofran) 4 mg PRN Q8HRS PRN IV NAUSEA/VOMITING; Start 10/30/19 at 15:30; Stop 10/31/19 at 15:29; Status DC Sodium Chloride 1,000 ml @ 100 mls/hr Q10H IV Last administered on 10/30/19 16:05; Start 10/30/19 at 15:17; Stop 10/30/19 at 16:22; Status DC Acetaminophen (Tylenol) 650 mg PRN Q4HRS PRN PO FEVER > 100.3'F; Start 10/30/19 at 15:30; Stop 10/31/19 at 14:16; Status DC Enoxaparin Sodium (Lovenox 40mg Syringe) 40 mg Q24H SQ Last administered on 10/31/19 21:16; Start 10/30/19 at 21:00 Acetaminophen (Tylenol) 650 mg PRN Q6HRS PRN PO MILD PAIN / TEMP > 100.3'F; Start 10/30/19 at 16:15 Amlodipine Besylate (Norvasc) 10 mg DAILY PO Last administered on 10/31/19 08:42; Start 10/31/19 at 09:00 Folic Acid (Folic Acid) 1 mg DAILY PO Last administered on 10/31/19 08:41; Start 10/31/19 at 09:00 Gabapentin (Neurontin) 300 mg TID PO Last administered on 10/31/19 21:15; Start 10/30/19 at 21:00 Hydrochlorothiazide (Hydrodiuril) 25 mg DAILY PO Last administered on 10/31/19 08:41; Start 10/31/19 at 09:00 Insulin Glargine (Lantus Syringe) 10 unit QHS SQ Last administered on 10/30/19 21:05; Start 10/30/19 at 21:00; Stop 10/31/19 at 10:29; Status DC Losartan Potassium (Cozaar) 100 mg DAILY PO Last administered on 10/31/19 08:41; Start 10/31/19 at 09:00 Metformin HCl (Glucophage) 1,000 mg BIDWMEALS PO Last administered on 10/31/19 16:45; Start 10/30/19 at 17:00 Methotrexate (Rheumatrex) 15 mg WEEKLY PO Last administered on 10/30/19 20:43; Start 10/30/19 at 18:00 Oxycodone HCl (Roxicodone) 5 mg PRN BID PRN PO SEVERE PAIN Last administered on 10/31/19at 10:14; Start 10/30/19 at 16:30 Tamsulosin HCl (Flomax) 0.4 mg DAILY PO Last administered on 10/31/19at 08:41; Start 10/31/19 at 09:00 Insulin Human Lispro (HumaLOG) 0-6 UNITS TIDWMEALS SQ ; Start 10/30/19 at 17:00 Sodium Chloride 1,000 ml @ 40 mls/hr Q24H IV Last administered on 10/31/19at 08:47; Start 10/30/19 at 16:15 Clonidine HCl (Catapres) 0.1 mg Q6HRS PRN PO HYPERTENSION; Start 10/30/19 at 16:15 Magnesium Hydroxide (Milk Of Magnesia) 2,400 mg PRN DAILY PRN PO CONSTIPATION; Start 10/30/19 at 16:45 Methylprednisolone Acetate (DEPO-Medrol 40MG VIAL) 40 mg 1X ONCE IM Last administered on 10/31/19at 10:30; Start 10/31/19 at 10:30; Stop 10/31/19 at 10:31; Status DC Bupivacaine HCl (Sensorcaine-Mpf 0.25%) 10 ml 1X ONCE IJ Last administered on 10/31/19at 10:30; Start 10/31/19 at 10:30; Stop 10/31/19 at 10:31; Status DC Diclofenac Sodium (Voltaren) 1 demetra BID TP Last administered on 10/31/19at 21:16; Start 10/31/19 at 10:00 Magnesium Sulfate 100 ml @ 25 mls/hr 1X ONCE IV Last administered on 10/31/19at 11:16; Start 10/31/19 at 11:00; Stop 10/31/19 at 14:59; Status DC Polyethylene Glycol (miraLAX PACKET) 17 gm DAILY PO Last administered on 10/31/19at 11:39; Start 10/31/19 at 12:00 Lactulose (Lactulose) 20 gm Q2H PO ; Start 10/31/19 at 13:00; Stop 10/31/19 at 15:01; Status DC Vancomycin HCl (Vanco Per Pharmacy) 1 each Q12HR PRN MC SEE COMMENTS Last administered on 10/31/19at 16:21; Start 10/31/19 at 15:30 Vancomycin HCl 1.5 gm/Sodium Chloride 500 ml @ 250 mls/hr 1X ONCE IV Last administered on 10/31/19at 15:37; Start 10/31/19 at 15:30; Stop 10/31/19 at 17:29; Status DC Vancomycin HCl 1 gm/Sodium Chloride 250 ml @ 250 mls/hr Q18H IV ; Start 11/01/19 at 09:00 Vancomycin HCl (Vancomycin Trough Level) 1 each 1X ONCE MC ; Start 11/02/19 at 02:30; Stop 11/02/19 at 02:31 Active Scripts Active Folic Acid 1 Mg Tablet 1 Mg PO DAILY Reported Levemir (Insulin Detemir) 100 Unit/1 Ml Vial 1 Unit SQ QHS Flomax (Tamsulosin Hcl) 0.4 Mg Cap.er.24h 1 Cap PO DAILY Percocet 5-325 Mg Tablet (Oxycodone/Acetaminophen) 1 Each Tablet 1 Tab PO PRN BID PRN MDD 2 Tablet(s) 5 Days Hydrocodone-Apap 5-325 (Hydrocodone Bit/Acetaminophen) 1 Tab Tablet 1 Tab PO PRN Q8HRS PRN Losartan Potassium 100 Mg Tablet 100 Mg PO DAILY Methotrexate (Methotrexate Sodium) 2.5 Mg Tablet 6 Tab PO WEEKLY 15mg Q Thursday Melatonin 10 Mg Capsule 1 Cap PO QHS PRN 30 Days Amlodipine Besylate 10 Mg Tablet 10 Mg PO DAILY Gabapentin (Gabapentin) 300 Mg Capsule 300 Mg PO TID Tylenol (Acetaminophen) 325 Mg Tablet 2 Tab PO PRN Q6HRS PRN Metformin Hcl 1,000 Mg Tablet 1,000 Mg PO BIDBFRMEAL Vitals/I & O Vital Sign - Last 24 Hours 10/31/19 10/31/19 10/31/19 10/31/19 10:14 11:14 11:21 14:23 Temp 98.8 98.3 98.8 98.3 Pulse 71 79 Resp 16 17 16 18 B/P (MAP) 169/60 (96) 120/50 (73) Pulse Ox 96 96 O2 Delivery Room Air Room Air Room Air Room Air 10/31/19 10/31/19 10/31/19 11/01/19 19:00 20:00 23:00 03:00 Temp 98.4 98.4 98.4 98.4 98.4 98.4 Pulse 78 71 74 Resp 18 18 16 B/P (MAP) 111/78 (89) 129/72 (91) 142/67 (92) Pulse Ox 97 99 95 O2 Delivery Room Air 11/01/19 07:05 Temp 97.8 97.8 Pulse 72 Resp 16 B/P (MAP) 102/48 (66) Pulse Ox 96 O2 Delivery Room Air Intake and Output 10/31/19 10/31/19 11/01/19 15:00 23:00 07:00 Intake Total 780 ml 640 ml Balance 780 ml 640 ml PHUONG MITCHELL MD November 01, 2019 08:45
[2019-11-01] MEDS: amLODIPine BESYLATE 10 MG TABLET PO SCH (09:00)
[2019-11-01] MEDS: hydroCHLOROthiazide 25 MG TABLET PO SCH (09:00)
[2019-11-01] MEDS: LOSARTAN POTASSIUM 50 MG TABLET. PO SCH (09:00)
[2019-11-01] MEDS: FOLIC ACID 1 MG TABLET. PO SCH (09:09)
[2019-11-01] MEDS: TAMSULOSIN 0.4 MG CAP.ER.24H. PO SCH (09:09)
[2019-11-01] MEDS: metFORMIN 500 MG TABLET PO SCH ×2 (09:09→17:04)
[2019-11-01] MEDS: GABAPENTIN 300 MG CAPSULE. PO SCH ×3 (09:09→22:02)
[2019-11-01] MEDS: POLYETHYLENE GLYCOL 3350 17 GM PACKET. PO SCH (09:10)
[2019-11-01] MEDS: DICLOFENAC SODIUM 1% TOPICAL GEL 100GM TUBE. TP SCH ×2 (09:11→22:03)
[2019-11-01] MEDS: IV 1/2 NORMAL SALINE 1,000 ML IV SCH (09:12)
[2019-11-01] MEDS: VANCOMYCIN 1 GM in IV NORMAL SALINE 250ML 250 ML IV SCH (09:12)
[2019-11-01] MEDS: INSULIN LISPRO 300 UNITS/3 ML VIAL. SQ SCH ×3 (09:23→17:07)
--- NOTE | 2019-11-01 09:52 | PDOC ---
PROGRESS NOTES Subjective Subjective No new complaints and low back pain is less and she got up to commode. Objective Objective Vital Signs Date Time Temp Pulse Resp B/P (MAP) Pulse Ox O2 Delivery O2 Flow Rate FiO2 11/01/19 09:00 72 102/48 11/01/19 07:05 97.8 16 96 Room Air 97.8 Intake and Output 11/01/19 07:00 Intake Total 1420 ml Balance 1420 ml Intake Oral 1320 ml IV Total 100 ml # Voids 8 # Bowel Movements 2 Physical Exam Physical Exam She is alert,supine in bed and seems comfortable. Physical and occupational therapy are working with her. Assessment Assessment Problems Medical Problems: (1) Back pain Status: Acute (2) UTI (lower urinary tract infection) Status: Acute Plan Plan of Care To rehab or SNF when medically stable. Comment Review of Relevant I have reviewed the following items shruthi (where applicable) has been applied. Labs Laboratory Tests Test 10/30/19 14:01 10/30/19 14:10 10/30/19 18:03 10/30/19 20:46 White Blood Count 4.6 x10^3/uL (4.0-11.0) Red Blood Count 3.39 x10^6/uL (3.50-5.40) Hemoglobin 10.6 g/dL (12.0-15.5) Hematocrit 31.4 % (36.0-47.0) Mean Corpuscular Volume 93 fL (79-100) Mean Corpuscular Hemoglobin 31 pg (25-35) Mean Corpuscular Hemoglobin Concent 34 g/dL (31-37) Red Cell Distribution Width 15.0 % (11.5-14.5) Platelet Count 166 x10^3/uL (140-400) Neutrophils (%) (Auto) 62 % (31-73) Lymphocytes (%) (Auto) 26 % (24-48) Monocytes (%) (Auto) 10 % (0-9) Eosinophils (%) (Auto) 2 % (0-3) Basophils (%) (Auto) 0 % (0-3) Neutrophils # (Auto) 2.8 x10^3/uL (1.8-7.7) Lymphocytes # (Auto) 1.2 x10^3/uL (1.0-4.8) Monocytes # (Auto) 0.5 x10^3/uL (0.0-1.1) Eosinophils # (Auto) 0.1 x10^3/uL (0.0-0.7) Basophils # (Auto) 0.0 x10^3/uL (0.0-0.2) Sodium Level 142 mmol/L (136-145) Potassium Level 3.8 mmol/L (3.5-5.1) Chloride Level 102 mmol/L (98-107) Carbon Dioxide Level 32 mmol/L (21-32) Anion Gap 8 (6-14) Blood Urea Nitrogen 26 mg/dL (7-20) Creatinine 0.9 mg/dL (0.6-1.0) Estimated GFR (Cockcroft-Gault) 73.5 BUN/Creatinine Ratio 29 (6-20) Glucose Level 108 mg/dL (70-99) Calcium Level 9.2 mg/dL (8.5-10.1) Total Bilirubin 0.3 mg/dL (0.2-1.0) Aspartate Amino Transf (AST/SGOT) 20 U/L (15-37) Alanine Aminotransferase (ALT/SGPT) 31 U/L (14-59) Alkaline Phosphatase 72 U/L (46-116) Creatine Kinase 144 U/L (26-192) Troponin I Quantitative < 0.017 ng/mL (0.000-0.055) Total Protein 7.2 g/dL (6.4-8.2) Albumin 3.7 g/dL (3.4-5.0) Albumin/Globulin Ratio 1.1 (1.0-1.7) Thyroid Stimulating Hormone (TSH) 0.019 uIU/mL (0.358-3.74) Urine Collection Type U cath Urine Color Yellow Urine Clarity Clear Urine pH 7.5 (<5.0-8.0) Urine Specific [place] 1.020 (1.000-1.030) Urine Protein Negative mg/dL (NEG-TRACE) Urine Glucose (UA) Negative mg/dL (NEG) Urine Ketones (Stick) Negative mg/dL (NEG) Urine Blood Negative (NEG) Urine Nitrite Positive (NEG) Urine Bilirubin Negative (NEG) Urine Urobilinogen Dipstick 1.0 mg/dL (0.2 mg/dL) Urine Leukocyte Esterase Small (NEG) Urine RBC 0 /HPF (0-2) Urine WBC 1-4 /HPF (0-4) Urine Amorphous Sediment Present /HPF Urine Bacteria Many /HPF (0-FEW) Urine Hyaline Casts Moderate /HPF Urine Mucus Slight /LPF Glucose (Fingerstick) 114 mg/dL (70-99) 140 mg/dL (70-99) Test 10/31/19 03:10 10/31/19 03:15 10/31/19 06:51 10/31/19 10:35 White Blood Count 3.7 x10^3/uL (4.0-11.0) Red Blood Count 3.18 x10^6/uL (3.50-5.40) Hemoglobin 9.9 g/dL (12.0-15.5) Hematocrit 29.3 % (36.0-47.0) Mean Corpuscular Volume 92 fL (79-100) Mean Corpuscular Hemoglobin 31 pg (25-35) Mean Corpuscular Hemoglobin Concent 34 g/dL (31-37) Red Cell Distribution Width 15.2 % (11.5-14.5) Platelet Count 154 x10^3/uL (140-400) Neutrophils (%) (Auto) 51 % (31-73) Lymphocytes (%) (Auto) 39 % (24-48) Monocytes (%) (Auto) 8 % (0-9) Eosinophils (%) (Auto) 2 % (0-3) Basophils (%) (Auto) 0 % (0-3) Neutrophils # (Auto) 1.9 x10^3/uL (1.8-7.7) Lymphocytes # (Auto) 1.4 x10^3/uL (1.0-4.8) Monocytes # (Auto) 0.3 x10^3/uL (0.0-1.1) Eosinophils # (Auto) 0.1 x10^3/uL (0.0-0.7) Basophils # (Auto) 0.0 x10^3/uL (0.0-0.2) Free Thyroxine 0.96 ng/dL (0.76-1.46) Sodium Level 140 mmol/L (136-145) Potassium Level 4.1 mmol/L (3.5-5.1) Chloride Level 103 mmol/L (98-107) Carbon Dioxide Level 28 mmol/L (21-32) Anion Gap 9 (6-14) Blood Urea Nitrogen 19 mg/dL (7-20) Creatinine 0.7 mg/dL (0.6-1.0) Estimated GFR (Cockcroft-Gault) 98.2 Glucose Level 67 mg/dL (70-99) Calcium Level 8.4 mg/dL (8.5-10.1) Magnesium Level 1.2 mg/dL (1.8-2.4) Triglycerides Level 27 mg/dL (0-150) Cholesterol Level 102 mg/dL (0-200) LDL Cholesterol, Calculated 55 mg/dL (0-100) VLDL Cholesterol, Calculated 5 mg/dL (0-40) Non-HDL Cholesterol Calculated 60 mg/dL (0-129) HDL Cholesterol 42 mg/dL (40-60) Cholesterol/HDL Ratio 2.4 Glucose (Fingerstick) 57 mg/dL (70-99) 103 mg/dL (70-99) Test 10/31/19 13:53 10/31/19 16:21 10/31/19 21:03 11/01/19 03:20 Glucose (Fingerstick) 219 mg/dL (70-99) 220 mg/dL (70-99) 278 mg/dL (70-99) Sodium Level 136 mmol/L (136-145) Potassium Level 4.0 mmol/L (3.5-5.1) Chloride Level 100 mmol/L (98-107) Carbon Dioxide Level 28 mmol/L (21-32) Anion Gap 8 (6-14) Blood Urea Nitrogen 16 mg/dL (7-20) Creatinine 0.8 mg/dL (0.6-1.0) Estimated GFR (Cockcroft-Gault) 84.2 Glucose Level 208 mg/dL (70-99) Calcium Level 8.5 mg/dL (8.5-10.1) Magnesium Level 1.7 mg/dL (1.8-2.4) Test 11/01/19 07:06 Glucose (Fingerstick) 166 mg/dL (70-99) Laboratory Tests Test 10/31/19 10:35 10/31/19 13:53 10/31/19 16:21 10/31/19 21:03 Glucose (Fingerstick) 103 mg/dL (70-99) 219 mg/dL (70-99) 220 mg/dL (70-99) 278 mg/dL (70-99) Test 11/01/19 03:20 11/01/19 07:06 Sodium Level 136 mmol/L (136-145) Potassium Level 4.0 mmol/L (3.5-5.1) Chloride Level 100 mmol/L (98-107) Carbon Dioxide Level 28 mmol/L (21-32) Anion Gap 8 (6-14) Blood Urea Nitrogen 16 mg/dL (7-20) Creatinine 0.8 mg/dL (0.6-1.0) Estimated GFR (Cockcroft-Gault) 84.2 Glucose Level 208 mg/dL (70-99) Calcium Level 8.5 mg/dL (8.5-10.1) Magnesium Level 1.7 mg/dL (1.8-2.4) Glucose (Fingerstick) 166 mg/dL (70-99) Microbiology 10/30/19 Blood Culture - Final, Complete Medications Current Medications Sodium Chloride 1,000 ml @ 1,000 mls/hr 1X ONCE IV Last administered on 10/30/19at 14:41; Start 10/30/19 at 14:15; Stop 10/30/19 at 15:14; Status DC Ceftriaxone Sodium (Rocephin) 1 gm 1X ONCE IVP Last administered on 10/30/19at 16:04; Start 10/30/19 at 15:15; Stop 10/30/19 at 15:16; Status DC Ondansetron HCl (Zofran) 4 mg PRN Q8HRS PRN IV NAUSEA/VOMITING; Start 10/30/19 at 15:30; Stop 10/31/19 at 15:29; Status DC Sodium Chloride 1,000 ml @ 100 mls/hr Q10H IV Last administered on 10/30/19at 16:05; Start 10/30/19 at 15:17; Stop 10/30/19 at 16:22; Status DC Acetaminophen (Tylenol) 650 mg PRN Q4HRS PRN PO FEVER > 100.3'F; Start 10/30/19 at 15:30; Stop 10/31/19 at 14:16; Status DC Enoxaparin Sodium (Lovenox 40mg Syringe) 40 mg Q24H SQ Last administered on 10/31/19at 21:16; Start 10/30/19 at 21:00 Acetaminophen (Tylenol) 650 mg PRN Q6HRS PRN PO MILD PAIN / TEMP > 100.3'F; Start 10/30/19 at 16:15 Amlodipine Besylate (Norvasc) 10 mg DAILY PO Last administered on 10/31/19 08:42; Start 10/31/19 at 09:00 Folic Acid (Folic Acid) 1 mg DAILY PO Last administered on 11/01/19 09:09; Start 10/31/19 at 09:00 Gabapentin (Neurontin) 300 mg TID PO Last administered on 11/01/19 09:09; Start 10/30/19 at 21:00 Hydrochlorothiazide (Hydrodiuril) 25 mg DAILY PO Last administered on 10/31/19 08:41; Start 10/31/19 at 09:00 Insulin Glargine (Lantus Syringe) 10 unit QHS SQ Last administered on 10/30/19 21:05; Start 10/30/19 at 21:00; Stop 10/31/19 at 10:29; Status DC Losartan Potassium (Cozaar) 100 mg DAILY PO Last administered on 10/31/19 08:41; Start 10/31/19 at 09:00 Metformin HCl (Glucophage) 1,000 mg BIDWMEALS PO Last administered on 11/01/19 09:09; Start 10/30/19 at 17:00 Methotrexate (Rheumatrex) 15 mg WEEKLY PO Last administered on 10/30/19 20:43; Start 10/30/19 at 18:00 Oxycodone HCl (Roxicodone) 5 mg PRN BID PRN PO SEVERE PAIN Last administered on 10/31/19at 10:14; Start 10/30/19 at 16:30 Tamsulosin HCl (Flomax) 0.4 mg DAILY PO Last administered on 11/01/19 09:09; Start 10/31/19 at 09:00 Insulin Human Lispro (HumaLOG) 0-6 UNITS TIDWMEALS SQ Last administered on 11/01/19 09:23; Start 10/30/19 at 17:00 Sodium Chloride 1,000 ml @ 40 mls/hr Q24H IV Last administered on 11/01/19 09:12; Start 10/30/19 at 16:15 Clonidine HCl (Catapres) 0.1 mg Q6HRS PRN PO HYPERTENSION; Start 10/30/19 at 16:15 Magnesium Hydroxide (Milk Of Magnesia) 2,400 mg PRN DAILY PRN PO CONSTIPATION; Start 10/30/19 at 16:45 Methylprednisolone Acetate (DEPO-Medrol 40MG VIAL) 40 mg 1X ONCE IM Last administered on 10/31/19at 10:30; Start 10/31/19 at 10:30; Stop 10/31/19 at 10:31; Status DC Bupivacaine HCl (Sensorcaine-Mpf 0.25%) 10 ml 1X ONCE IJ Last administered on 10/31/19at 10:30; Start 10/31/19 at 10:30; Stop 10/31/19 at 10:31; Status DC Diclofenac Sodium (Voltaren) 1 demetra BID TP Last administered on 11/01/19at 09:11; Start 10/31/19 at 10:00 Magnesium Sulfate 100 ml @ 25 mls/hr 1X ONCE IV Last administered on 10/31/19at 11:16; Start 10/31/19 at 11:00; Stop 10/31/19 at 14:59; Status DC Polyethylene Glycol (miraLAX PACKET) 17 gm DAILY PO Last administered on 11/01/19at 09:10; Start 10/31/19 at 12:00 Lactulose (Lactulose) 20 gm Q2H PO ; Start 10/31/19 at 13:00; Stop 10/31/19 at 15:01; Status DC Vancomycin HCl (Vanco Per Pharmacy) 1 each Q12HR PRN MC SEE COMMENTS Last administered on 10/31/19at 16:21; Start 10/31/19 at 15:30 Vancomycin HCl 1.5 gm/Sodium Chloride 500 ml @ 250 mls/hr 1X ONCE IV Last administered on 10/31/19at 15:37; Start 10/31/19 at 15:30; Stop 10/31/19 at 17:29; Status DC Vancomycin HCl 1 gm/Sodium Chloride 250 ml @ 250 mls/hr Q18H IV Last administered on 11/01/19at 09:12; Start 11/01/19 at 09:00 Vancomycin HCl (Vancomycin Trough Level) 1 each 1X ONCE MC ; Start 11/02/19 at 02:30; Stop 11/02/19 at 02:31 Active Scripts Active Folic Acid 1 Mg Tablet 1 Mg PO DAILY Reported Levemir (Insulin Detemir) 100 Unit/1 Ml Vial 1 Unit SQ QHS Flomax (Tamsulosin Hcl) 0.4 Mg Cap.er.24h 1 Cap PO DAILY Percocet 5-325 Mg Tablet (Oxycodone/Acetaminophen) 1 Each Tablet 1 Tab PO PRN BID PRN MDD 2 Tablet(s) 5 Days Hydrocodone-Apap 5-325 (Hydrocodone Bit/Acetaminophen) 1 Tab Tablet 1 Tab PO PRN Q8HRS PRN Losartan Potassium 100 Mg Tablet 100 Mg PO DAILY Methotrexate (Methotrexate Sodium) 2.5 Mg Tablet 6 Tab PO WEEKLY 15mg Q Thursday Melatonin 10 Mg Capsule 1 Cap PO QHS PRN 30 Days Amlodipine Besylate 10 Mg Tablet 10 Mg PO DAILY Gabapentin (Gabapentin) 300 Mg Capsule 300 Mg PO TID Tylenol (Acetaminophen) 325 Mg Tablet 2 Tab PO PRN Q6HRS PRN Metformin Hcl 1,000 Mg Tablet 1,000 Mg PO BIDBFRMEAL Vitals/I & O Vital Sign - Last 24 Hours 10/31/19 10/31/19 10/31/19 10/31/19 10:14 11:14 11:21 14:23 Temp 98.8 98.3 98.8 98.3 Pulse 71 79 Resp 16 17 16 18 B/P (MAP) 169/60 (96) 120/50 (73) Pulse Ox 96 96 O2 Delivery Room Air Room Air Room Air Room Air 10/31/19 10/31/19 10/31/19 11/01/19 19:00 20:00 23:00 03:00 Temp 98.4 98.4 98.4 98.4 98.4 98.4 Pulse 78 71 74 Resp 18 18 16 B/P (MAP) 111/78 (89) 129/72 (91) 142/67 (92) Pulse Ox 97 99 95 O2 Delivery Room Air 11/01/19 11/01/19 11/01/19 07:05 09:00 09:00 Temp 97.8 97.8 Pulse 72 72 72 Resp 16 B/P (MAP) 102/48 (66) 102/48 102/48 Pulse Ox 96 O2 Delivery Room Air Intake and Output 10/31/19 10/31/19 11/01/19 15:00 23:00 07:00 Intake Total 780 ml 640 ml Balance 780 ml 640 ml BELLO SHEPPARD MD November 01, 2019 09:52
--- NOTE | 2019-11-01 10:28 | PDOC ---
PROGRESS NOTES Subjective Subjective discussed with ID doctor. final blood culture results pending. afebrile. lab reviewed,. magnesium low 1.7. bp is low and will decrease amlodipine. feels okay. she had a BM. Objective Objective Vital Signs Date Time Temp Pulse Resp B/P (MAP) Pulse Ox O2 Delivery O2 Flow Rate FiO2 11/01/19 09:00 72 102/48 11/01/19 07:15 Room Air 11/01/19 07:05 97.8 16 96 97.8 Intake and Output 11/01/19 07:00 Intake Total 1420 ml Balance 1420 ml Intake Oral 1320 ml IV Total 100 ml # Voids 8 # Bowel Movements 2 Physical Exam Abdomen: Soft Heart: Regular rate, Normal S1, Normal S2 Extremities: No edema General: Alert HEENT: Atraumatic Lungs: Clear to auscultation Neuro: Normal speech Psych/Mental Status: Mental status NL Skin: No rashes Assessment Assessment Problems1. Generalized weakness with a fall. 2. Dehydration. resolved with iv fluids 3. Right leg weakness. improved 4. Anemia of chronic disease. 5. Diabetes mellitus type 2, on insulin with peripheral neuropathy 6. Hypertension. 7. Cervical spondylosis. Lumbar spinal stenosis hypomagnesemia 8. Rheumatoid arthritis. debility due to diabetic peripheral neuropathy and lumbar spinal stenosis GPC bacteremia 1/2 Medical Problems: (1) Back pain Status: Acute (2) UTI (lower urinary tract infection) Status: Acute Plan Plan of Care decrease amlodipine iv magnesium suilfate today PT and OT continue iv vancomycin await final blood culture results screen for [facility] lab tomorrow lovenox for dvt prophylaxis Comment Review of Relevant I have reviewed the following items shruthi (where applicable) has been applied. Labs Laboratory Tests Test 10/30/19 14:01 10/30/19 14:10 10/30/19 18:03 10/30/19 20:46 White Blood Count 4.6 x10^3/uL (4.0-11.0) Red Blood Count 3.39 x10^6/uL (3.50-5.40) Hemoglobin 10.6 g/dL (12.0-15.5) Hematocrit 31.4 % (36.0-47.0) Mean Corpuscular Volume 93 fL (79-100) Mean Corpuscular Hemoglobin 31 pg (25-35) Mean Corpuscular Hemoglobin Concent 34 g/dL (31-37) Red Cell Distribution Width 15.0 % (11.5-14.5) Platelet Count 166 x10^3/uL (140-400) Neutrophils (%) (Auto) 62 % (31-73) Lymphocytes (%) (Auto) 26 % (24-48) Monocytes (%) (Auto) 10 % (0-9) Eosinophils (%) (Auto) 2 % (0-3) Basophils (%) (Auto) 0 % (0-3) Neutrophils # (Auto) 2.8 x10^3/uL (1.8-7.7) Lymphocytes # (Auto) 1.2 x10^3/uL (1.0-4.8) Monocytes # (Auto) 0.5 x10^3/uL (0.0-1.1) Eosinophils # (Auto) 0.1 x10^3/uL (0.0-0.7) Basophils # (Auto) 0.0 x10^3/uL (0.0-0.2) Sodium Level 142 mmol/L (136-145) Potassium Level 3.8 mmol/L (3.5-5.1) Chloride Level 102 mmol/L (98-107) Carbon Dioxide Level 32 mmol/L (21-32) Anion Gap 8 (6-14) Blood Urea Nitrogen 26 mg/dL (7-20) Creatinine 0.9 mg/dL (0.6-1.0) Estimated GFR (Cockcroft-Gault) 73.5 BUN/Creatinine Ratio 29 (6-20) Glucose Level 108 mg/dL (70-99) Calcium Level 9.2 mg/dL (8.5-10.1) Total Bilirubin 0.3 mg/dL (0.2-1.0) Aspartate Amino Transf (AST/SGOT) 20 U/L (15-37) Alanine Aminotransferase (ALT/SGPT) 31 U/L (14-59) Alkaline Phosphatase 72 U/L (46-116) Creatine Kinase 144 U/L (26-192) Troponin I Quantitative < 0.017 ng/mL (0.000-0.055) Total Protein 7.2 g/dL (6.4-8.2) Albumin 3.7 g/dL (3.4-5.0) Albumin/Globulin Ratio 1.1 (1.0-1.7) Thyroid Stimulating Hormone (TSH) 0.019 uIU/mL (0.358-3.74) Urine Collection Type U cath Urine Color Yellow Urine Clarity Clear Urine pH 7.5 (<5.0-8.0) Urine Specific [place] 1.020 (1.000-1.030) Urine Protein Negative mg/dL (NEG-TRACE) Urine Glucose (UA) Negative mg/dL (NEG) Urine Ketones (Stick) Negative mg/dL (NEG) Urine Blood Negative (NEG) Urine Nitrite Positive (NEG) Urine Bilirubin Negative (NEG) Urine Urobilinogen Dipstick 1.0 mg/dL (0.2 mg/dL) Urine Leukocyte Esterase Small (NEG) Urine RBC 0 /HPF (0-2) Urine WBC 1-4 /HPF (0-4) Urine Amorphous Sediment Present /HPF Urine Bacteria Many /HPF (0-FEW) Urine Hyaline Casts Moderate /HPF Urine Mucus Slight /LPF Glucose (Fingerstick) 114 mg/dL (70-99) 140 mg/dL (70-99) Test 10/31/19 03:10 10/31/19 03:15 10/31/19 06:51 10/31/19 10:35 White Blood Count 3.7 x10^3/uL (4.0-11.0) Red Blood Count 3.18 x10^6/uL (3.50-5.40) Hemoglobin 9.9 g/dL (12.0-15.5) Hematocrit 29.3 % (36.0-47.0) Mean Corpuscular Volume 92 fL (79-100) Mean Corpuscular Hemoglobin 31 pg (25-35) Mean Corpuscular Hemoglobin Concent 34 g/dL (31-37) Red Cell Distribution Width 15.2 % (11.5-14.5) Platelet Count 154 x10^3/uL (140-400) Neutrophils (%) (Auto) 51 % (31-73) Lymphocytes (%) (Auto) 39 % (24-48) Monocytes (%) (Auto) 8 % (0-9) Eosinophils (%) (Auto) 2 % (0-3) Basophils (%) (Auto) 0 % (0-3) Neutrophils # (Auto) 1.9 x10^3/uL (1.8-7.7) Lymphocytes # (Auto) 1.4 x10^3/uL (1.0-4.8) Monocytes # (Auto) 0.3 x10^3/uL (0.0-1.1) Eosinophils # (Auto) 0.1 x10^3/uL (0.0-0.7) Basophils # (Auto) 0.0 x10^3/uL (0.0-0.2) Free Thyroxine 0.96 ng/dL (0.76-1.46) Sodium Level 140 mmol/L (136-145) Potassium Level 4.1 mmol/L (3.5-5.1) Chloride Level 103 mmol/L (98-107) Carbon Dioxide Level 28 mmol/L (21-32) Anion Gap 9 (6-14) Blood Urea Nitrogen 19 mg/dL (7-20) Creatinine 0.7 mg/dL (0.6-1.0) Estimated GFR (Cockcroft-Gault) 98.2 Glucose Level 67 mg/dL (70-99) Calcium Level 8.4 mg/dL (8.5-10.1) Magnesium Level 1.2 mg/dL (1.8-2.4) Triglycerides Level 27 mg/dL (0-150) Cholesterol Level 102 mg/dL (0-200) LDL Cholesterol, Calculated 55 mg/dL (0-100) VLDL Cholesterol, Calculated 5 mg/dL (0-40) Non-HDL Cholesterol Calculated 60 mg/dL (0-129) HDL Cholesterol 42 mg/dL (40-60) Cholesterol/HDL Ratio 2.4 Glucose (Fingerstick) 57 mg/dL (70-99) 103 mg/dL (70-99) Test 10/31/19 13:53 10/31/19 16:21 10/31/19 21:03 11/01/19 03:20 Glucose (Fingerstick) 219 mg/dL (70-99) 220 mg/dL (70-99) 278 mg/dL (70-99) Sodium Level 136 mmol/L (136-145) Potassium Level 4.0 mmol/L (3.5-5.1) Chloride Level 100 mmol/L (98-107) Carbon Dioxide Level 28 mmol/L (21-32) Anion Gap 8 (6-14) Blood Urea Nitrogen 16 mg/dL (7-20) Creatinine 0.8 mg/dL (0.6-1.0) Estimated GFR (Cockcroft-Gault) 84.2 Glucose Level 208 mg/dL (70-99) Calcium Level 8.5 mg/dL (8.5-10.1) Magnesium Level 1.7 mg/dL (1.8-2.4) Test 11/01/19 07:06 Glucose (Fingerstick) 166 mg/dL (70-99) Laboratory Tests Test 10/31/19 10:35 10/31/19 13:53 10/31/19 16:21 10/31/19 21:03 Glucose (Fingerstick) 103 mg/dL (70-99) 219 mg/dL (70-99) 220 mg/dL (70-99) 278 mg/dL (70-99) Test 11/01/19 03:20 11/01/19 07:06 Sodium Level 136 mmol/L (136-145) Potassium Level 4.0 mmol/L (3.5-5.1) Chloride Level 100 mmol/L (98-107) Carbon Dioxide Level 28 mmol/L (21-32) Anion Gap 8 (6-14) Blood Urea Nitrogen 16 mg/dL (7-20) Creatinine 0.8 mg/dL (0.6-1.0) Estimated GFR (Cockcroft-Gault) 84.2 Glucose Level 208 mg/dL (70-99) Calcium Level 8.5 mg/dL (8.5-10.1) Magnesium Level 1.7 mg/dL (1.8-2.4) Glucose (Fingerstick) 166 mg/dL (70-99) Microbiology 10/30/19 Blood Culture - Final, Complete Medications Current Medications Sodium Chloride 1,000 ml @ 1,000 mls/hr 1X ONCE IV Last administered on 10/30/19at 14:41; Start 10/30/19 at 14:15; Stop 10/30/19 at 15:14; Status DC Ceftriaxone Sodium (Rocephin) 1 gm 1X ONCE IVP Last administered on 10/30/19at 16:04; Start 10/30/19 at 15:15; Stop 10/30/19 at 15:16; Status DC Ondansetron HCl (Zofran) 4 mg PRN Q8HRS PRN IV NAUSEA/VOMITING; Start 10/30/19 at 15:30; Stop 10/31/19 at 15:29; Status DC Sodium Chloride 1,000 ml @ 100 mls/hr Q10H IV Last administered on 10/30/19at 16:05; Start 10/30/19 at 15:17; Stop 10/30/19 at 16:22; Status DC Acetaminophen (Tylenol) 650 mg PRN Q4HRS PRN PO FEVER > 100.3'F; Start 10/30/19 at 15:30; Stop 10/31/19 at 14:16; Status DC Enoxaparin Sodium (Lovenox 40mg Syringe) 40 mg Q24H SQ Last administered on 10/31/19at 21:16; Start 10/30/19 at 21:00 Acetaminophen (Tylenol) 650 mg PRN Q6HRS PRN PO MILD PAIN / TEMP > 100.3'F; Start 10/30/19 at 16:15 Amlodipine Besylate (Norvasc) 10 mg DAILY PO Last administered on 10/31/19at 08:42; Start 10/31/19 at 09:00; Stop 11/01/19 at 10:21; Status DC Folic Acid (Folic Acid) 1 mg DAILY PO Last administered on 11/01/19 09:09; Start 10/31/19 at 09:00 Gabapentin (Neurontin) 300 mg TID PO Last administered on 11/01/19at 09:09; Start 10/30/19 at 21:00 Hydrochlorothiazide (Hydrodiuril) 25 mg DAILY PO Last administered on 10/31/19 08:41; Start 10/31/19 at 09:00 Insulin Glargine (Lantus Syringe) 10 unit QHS SQ Last administered on 10/30/19 21:05; Start 10/30/19 at 21:00; Stop 10/31/19 at 10:29; Status DC Losartan Potassium (Cozaar) 100 mg DAILY PO Last administered on 10/31/19 08:41; Start 10/31/19 at 09:00 Metformin HCl (Glucophage) 1,000 mg BIDWMEALS PO Last administered on 11/01/19 09:09; Start 10/30/19 at 17:00 Methotrexate (Rheumatrex) 15 mg WEEKLY PO Last administered on 10/30/19at 20:43; Start 10/30/19 at 18:00 Oxycodone HCl (Roxicodone) 5 mg PRN BID PRN PO SEVERE PAIN Last administered on 10/31/19at 10:14; Start 10/30/19 at 16:30 Tamsulosin HCl (Flomax) 0.4 mg DAILY PO Last administered on 11/01/19at 09:09; Start 10/31/19 at 09:00 Insulin Human Lispro (HumaLOG) 0-6 UNITS TIDWMEALS SQ Last administered on 11/01/19at 09:23; Start 10/30/19 at 17:00 Sodium Chloride 1,000 ml @ 40 mls/hr Q24H IV Last administered on 11/01/19at 09:12; Start 10/30/19 at 16:15 Clonidine HCl (Catapres) 0.1 mg Q6HRS PRN PO HYPERTENSION; Start 10/30/19 at 16:15 Magnesium Hydroxide (Milk Of Magnesia) 2,400 mg PRN DAILY PRN PO CONSTIPATION; Start 10/30/19 at 16:45 Methylprednisolone Acetate (DEPO-Medrol 40MG VIAL) 40 mg 1X ONCE IM Last administered on 10/31/19at 10:30; Start 10/31/19 at 10:30; Stop 10/31/19 at 10:31; Status DC Bupivacaine HCl (Sensorcaine-Mpf 0.25%) 10 ml 1X ONCE IJ Last administered on 10/31/19at 10:30; Start 10/31/19 at 10:30; Stop 10/31/19 at 10:31; Status DC Diclofenac Sodium (Voltaren) 1 demetra BID TP Last administered on 11/01/19at 09:11; Start 10/31/19 at 10:00 Magnesium Sulfate 100 ml @ 25 mls/hr 1X ONCE IV Last administered on 10/31/19at 11:16; Start 10/31/19 at 11:00; Stop 10/31/19 at 14:59; Status DC Polyethylene Glycol (miraLAX PACKET) 17 gm DAILY PO Last administered on 11/01/19at 09:10; Start 10/31/19 at 12:00 Lactulose (Lactulose) 20 gm Q2H PO ; Start 10/31/19 at 13:00; Stop 10/31/19 at 15:01; Status DC Vancomycin HCl (Vanco Per Pharmacy) 1 each Q12HR PRN MC SEE COMMENTS Last adm inistered on 10/31/19at 16:21; Start 10/31/19 at 15:30 Vancomycin HCl 1.5 gm/Sodium Chloride 500 ml @ 250 mls/hr 1X ONCE IV Last administered on 10/31/19at 15:37; Start 10/31/19 at 15:30; Stop 10/31/19 at 17:29; Status DC Vancomycin HCl 1 gm/Sodium Chloride 250 ml @ 250 mls/hr Q18H IV Last administered on 11/01/19at 09:12; Start 11/01/19 at 09:00 Vancomycin HCl (Vancomycin Trough Level) 1 each 1X ONCE MC ; Start 11/02/19 at 02:30; Stop 11/02/19 at 02:31 Amlodipine Besylate (Norvasc) 5 mg DAILY PO ; Start 11/02/19 at 09:00; Status UNV Magnesium Sulfate 50 ml @ 25 mls/hr 1X ONCE IV ; Start 11/01/19 at 10:30; Stop 11/01/19 at 12:29; Status UNV Active Scripts Active Folic Acid 1 Mg Tablet 1 Mg PO DAILY Reported Levemir (Insulin Detemir) 100 Unit/1 Ml Vial 1 Unit SQ QHS Flomax (Tamsulosin Hcl) 0.4 Mg Cap.er.24h 1 Cap PO DAILY Percocet 5-325 Mg Tablet (Oxycodone/Acetaminophen) 1 Each Tablet 1 Tab PO PRN BID PRN MDD 2 Tablet(s) 5 Days Hydrocodone-Apap 5-325 (Hydrocodone Bit/Acetaminophen) 1 Tab Tablet 1 Tab PO PRN Q8HRS PRN Losartan Potassium 100 Mg Tablet 100 Mg PO DAILY Methotrexate (Methotrexate Sodium) 2.5 Mg Tablet 6 Tab PO WEEKLY 15mg Q Thursday Melatonin 10 Mg Capsule 1 Cap PO QHS PRN 30 Days Amlodipine Besylate 10 Mg Tablet 10 Mg PO DAILY Gabapentin (Gabapentin) 300 Mg Capsule 300 Mg PO TID Tylenol (Acetaminophen) 325 Mg Tablet 2 Tab PO PRN Q6HRS PRN Metformin Hcl 1,000 Mg Tablet 1,000 Mg PO BIDBFRMEAL Vitals/I & O Vital Sign - Last 24 Hours 10/31/19 10/31/19 10/31/19 10/31/19 11:14 11:21 14:23 19:00 Temp 98.8 98.3 98.4 98.8 98.3 98.4 Pulse 71 79 78 Resp 17 16 18 18 B/P (MAP) 169/60 (96) 120/50 (73) 111/78 (89) Pulse Ox 96 96 97 O2 Delivery Room Air Room Air Room Air 10/31/19 10/31/19 11/01/19 11/01/19 20:00 23:00 03:00 07:05 Temp 98.4 98.4 97.8 98.4 98.4 97.8 Pulse 71 74 72 Resp 18 16 16 B/P (MAP) 129/72 (91) 142/67 (92) 102/48 (66) Pulse Ox 99 95 96 O2 Delivery Room Air Room Air 11/01/19 11/01/19 11/01/19 07:15 09:00 09:00 Pulse 72 72 B/P (MAP) 102/48 102/48 O2 Delivery Room Air Intake and Output 10/31/19 10/31/19 11/01/19 15:00 23:00 07:00 Intake Total 780 ml 640 ml Balance 780 ml 640 ml DEVORA BOSCH MD November 01, 2019 10:28
--- NOTE | 2019-11-01 10:57 | PDOC ---
Infectious Disease Note Vital Signs: Vital Signs Vital Signs Date Time Temp Pulse Resp B/P (MAP) Pulse Ox O2 Delivery O2 Flow Rate FiO2 11/01/19 09:00 72 102/48 11/01/19 07:15 Room Air 11/01/19 07:05 97.8 16 96 97.8 Medications: Inpatient Meds: Current Medications Medications (Trade) Dose Ordered Sig/Shama Start Time Stop Time Status Last Admin Dose Admin Acetaminophen (Tylenol) 650 mg PRN Q6HRS PRN 10/30/19 16:15 Amlodipine Besylate (Norvasc) 5 mg DAILY 11/01/19 11:00 Bupivacaine HCl (Sensorcaine-Mpf 0.25%) 10 ml 1X ONCE 10/31/19 10:30 10/31/19 10:31 DC 10/31/19 10:30 10 ML Ceftriaxone Sodium (Rocephin) 1 gm 1X ONCE 10/30/19 15:15 10/30/19 15:16 DC 10/30/19 16:04 1 GM Clonidine HCl (Catapres) 0.1 mg Q6HRS PRN 10/30/19 16:15 Diclofenac Sodium (Voltaren) 1 demetra BID 10/31/19 10:00 11/01/19 09:11 1 DEMETRA Enoxaparin Sodium (Lovenox 40mg Syringe) 40 mg Q24H 10/30/19 21:00 10/31/19 21:16 40 MG Folic Acid (Folic Acid) 1 mg DAILY 10/31/19 09:00 11/01/19 09:09 1 MG Gabapentin (Neurontin) 300 mg TID 10/30/19 21:00 11/01/19 09:09 300 MG Hydrochlorothiazide (Hydrodiuril) 25 mg DAILY 10/31/19 09:00 10/31/19 08:41 25 MG Insulin Glargine (Lantus Syringe) 10 unit QHS 10/30/19 21:00 10/31/19 10:29 DC 10/30/19 21:05 10 UNIT Insulin Human Lispro (HumaLOG) 0-6 UNITS TIDWMEALS 10/30/19 17:00 11/01/19 09:23 1 UNITS Lactulose (Lactulose) 20 gm Q2H 10/31/19 13:00 10/31/19 15:01 DC Losartan Potassium (Cozaar) 100 mg DAILY 10/31/19 09:00 10/31/19 08:41 100 MG Magnesium Hydroxide (Milk Of Magnesia) 2,400 mg PRN DAILY PRN 10/30/19 16:45 Magnesium Sulfate 50 ml @ 25 mls/hr 1X ONCE 11/01/19 11:00 11/01/19 12:59 Metformin HCl (Glucophage) 1,000 mg BIDWMEALS 10/30/19 17:00 11/01/19 09:09 1,000 MG Methotrexate (Rheumatrex) 15 mg WEEKLY 10/30/19 18:00 10/30/19 20:43 15 MG Methylprednisolone Acetate (DEPO-Medrol 40MG VIAL) 40 mg 1X ONCE 10/31/19 10:30 10/31/19 10:31 DC 10/31/19 10:30 40 MG Ondansetron HCl (Zofran) 4 mg PRN Q8HRS PRN 10/30/19 15:30 10/31/19 15:29 DC Oxycodone HCl (Roxicodone) 5 mg PRN BID PRN 10/30/19 16:30 10/31/19 10:14 5 MG Polyethylene Glycol (miraLAX PACKET) 17 gm DAILY 10/31/19 12:00 11/01/19 09:10 17 GM Sodium Chloride 1,000 ml @ 40 mls/hr Q24H 10/30/19 16:15 11/01/19 09:12 40 MLS/HR Tamsulosin HCl (Flomax) 0.4 mg DAILY 10/31/19 09:00 11/01/19 09:09 0.4 MG Vancomycin HCl (Vanco Per Pharmacy) 1 each Q12HR PRN 10/31/19 15:30 10/31/19 16:21 1 EACH Vancomycin HCl (Vancomycin Trough Level) 1 each 1X ONCE 11/02/19 02:30 11/02/19 02:31 Vancomycin HCl 1.5 gm/Sodium Chloride 500 ml @ 250 mls/hr 1X ONCE 10/31/19 15:30 10/31/19 17:29 DC 10/31/19 15:37 250 MLS/HR Vancomycin HCl 1 gm/Sodium Chloride 250 ml @ 250 mls/hr Q18H 11/01/19 09:00 11/01/19 09:12 250 MLS/HR Labs: Lab Laboratory Tests Test 10/31/19 13:53 10/31/19 16:21 10/31/19 21:03 11/01/19 03:20 Glucose (Fingerstick) 219 mg/dL (70-99) 220 mg/dL (70-99) 278 mg/dL (70-99) Sodium Level 136 mmol/L (136-145) Potassium Level 4.0 mmol/L (3.5-5.1) Chloride Level 100 mmol/L (98-107) Carbon Dioxide Level 28 mmol/L (21-32) Anion Gap 8 (6-14) Blood Urea Nitrogen 16 mg/dL (7-20) Creatinine 0.8 mg/dL (0.6-1.0) Estimated GFR (Cockcroft-Gault) 84.2 Glucose Level 208 mg/dL (70-99) Calcium Level 8.5 mg/dL (8.5-10.1) Magnesium Level 1.7 mg/dL (1.8-2.4) Test 11/01/19 07:06 11/01/19 10:47 Glucose (Fingerstick) 166 mg/dL (70-99) 221 mg/dL (70-99) Objective: Assessment: Patient seen and examined Plan: Plan of Care ID consult dictated Thank you [id number] CONNIE LEYVA MD November 01, 2019 10:57
[2019-11-01 10:58] VITALS: BP 149/53
[2019-11-01] MEDS ORDERED: MAGNESIUM SULFATE 2GM 50 ML IV ONE (11:00)
[2019-11-01] MEDS: VANCOMYCIN PER PHARMACY MC PRN (11:44)
--- NOTE | 2019-11-01 12:08 | CONS ---
DATE OF CONSULTATION: 11/01/2019 REFERRING PHYSICIAN: Troy Holcomb MD REASON FOR CONSULTATION: Bacteremia. HISTORY OF PRESENT ILLNESS: The patient is a 79-year-old female who lives at home alone, walks around with a walker, debilitated from cervical stenosis and underlying rheumatoid arthritis, presented to ER after falling at home sometime in the middle of the night and lying on the floor for many hours until help arrived. She did not hit her head. She was too weak to get up. She had weakness, which was going on for a couple of days prior to that. She also had some right-sided weakness. Denies any fevers, chills, nausea, vomiting, diarrhea, abdominal pain, chest pain. She did have some right knee and hip pain. She felt that her right leg had become weak, but it did not cause actual fall. She also has some dysuria. UA in the ER showed 1-4 wbc's. She got Rocephin. Blood cultures were done, which has returned 1/2 bottles positive for gram-positive cocci. She was started on vancomycin. ID consult has been requested for antibiotic management. White count was normal. The patient remains afebrile. The patient underwent CT of the head, which did not show any acute intracranial hemorrhage, mild ventriculomegaly on the background of generalized parenchymal volume loss. Chest x-ray showed no acute process. Lumbar spine CT showed multilevel degenerative change throughout the lumbar spine and lower thoracic spine, chronic mild superior endplate depression deformity at L3, no acute osseous findings. Lumbar scoliosis. The patient had a knee x-ray, which showed a small right knee pleural effusion, right hip x-ray showed no acute fracture. Cervical spine CT showed multilevel degenerative change involving the cervical spine, associated left foraminal stenosis at C2-C3, C5-C6 and C6-C7 laminectomy changes with instrumented posterior fusion at C3-C6. No central canal stenosis is seen. Cervical kyphosis, bone demineralization, suspected thyroid goiter. Today, the patient feels a little better. She denies any headache, sore throat, difficulty swallowing, nausea, vomiting, diarrhea, abdominal pain. Dysuria has resolved. PAST MEDICAL HISTORY: Hypertension, rheumatoid arthritis, cervical spondylosis, spinal stenosis, diabetes mellitus 2, hypertension, osteoarthritis, diabetic retinopathy, gastritis, anemia, urinary retention. SOCIAL HISTORY: , lives alone at home, uses a walker. Daughter lives nearby. Does not smoke or drink alcohol. FAMILY HISTORY: As per HPI. REVIEW OF SYSTEMS: Negative except for above in HPI. PHYSICAL EXAMINATION: VITAL SIGNS: Temperature 97.8, pulse 72, respiratory rate 16, blood pressure 102/48, oxygen saturation 96% on room air. GENERAL: Alert, oriented x 3 female, lying in bed comfortably, in no acute distress, pleasant, cooperative. HEENT: Normocephalic, atraumatic, anicteric. No thrush. NECK: Supple, no JVD, no lymphadenopathy. LUNGS: Clear bilaterally. No wheezing. HEART: S1, S2. No gallops or murmurs. ABDOMEN: Soft, nontender, nondistended. GENITOURINARY: Briefs in place. NEUROLOGIC: Alert and oriented x 3, able to move all 4 extremities. DERMATOLOGIC: Warm and dry. No generalized rash. PSYCHIATRIC: Cooperative. LABORATORY DATA: WBC 3.7, hemoglobin 9.9, hematocrit 29.3, platelets 154. Sodium 136, potassium 4.0, chloride 100, bicarbonate 28, BUN 16, creatinine 0.8, glucose 208, magnesium 1.7. LFTs within normal limits. TSH is 0.019. Troponin normal. CK 144. UA 1-4 wbc's. Micro; 1/2 bottles, gram-positive cocci. IMAGING: Head CT as above. Chest x-ray as above. Lumbar spine CT as above. Knee x-ray as above. Hip x-ray as above. Cervical spine CT as above. IMPRESSION: 1. Generalized weakness with fall. 2. Dehydration, resolved. 3. Bacteremia, 1/2 bottles positive for gram-positive cocci could be a contaminant. 4. Dysuria on admission. UA was negative. Status post 1 dose of ceftriaxone. 5. Right leg weakness, improved. 6. Right knee and hip pain, improved. 7. Cervical spondylosis, lumbar spinal stenosis. 8. Diabetes mellitus 2 with peripheral neuropathy. 9. Hypertension. 10. Generalized debility. 11. Leukopenia, trend WBC. RECOMMENDATIONS: 1. Continue empiric IV vancomycin for now. 2. Monitor renal functions closely. 3. Follow up ID and SHAKIR of GPC in blood cultures. 4. Could be a contaminant. 5. Continue fluid management closely. 6. Monitor labs. Thank you for allowing me to participate in this patient's care. If you have any questions, do not hesitate to contact me. Discussed with Dr. Holcomb. CONNIE LEYVA MD DR: ALIZE/azar JOB#: [id number] / [id number] GERARDO
[2019-11-01] MEDS: amLODIPine BESYLATE 5 MG TABLET PO SCH (12:15)
[2019-11-01] MEDS: oxyCODONE IR 5 MG TABLET PO PRN (12:17)
[2019-11-01 14:56] VITALS: BP 155/83
--- NOTE | 2019-11-01 15:35 | NUR ---
SS following for discharge planning. SS reviewed pt chart and discussed with pt RN. Pt is from home and is currently on room air. PT/OT recommended usp unit. Dr. Holcomb requesting referral to [facility], ; fax [phone]. SS met with pt and discussed. Pt agreeable to referral to [facility]. SS phoned and faxed referral. SS will await acceptance decision and will proceed accordingly. Pt's RN notified.
[2019-11-01 19:00] VITALS: BP 119/48
[2019-11-01] MEDS: ENOXAPARIN 40 MG/0.4 ML SYRINGE. SQ SCH (22:03)
[2019-11-01 23:19] VITALS: BP 136/40
[2019-11-02 00:07] LABS: HEMOGLOBIN A1C 7.1 % (4.8-5.6)
[2019-11-02 02:49] LABS: BASO % 1 % (0-3); EOS # 0.1 x10^3/uL (0.0-0.7); EOS % 2 % (0-3); HEMATOCRIT 29.9 % (36.0-47.0); HEMOGLOBIN 10.1 g/dL (12.0-15.5); LYMPH # 1.1 x10^3/uL (1.0-4.8); LYMPH % 32 % (24-48); MEAN CORPUSCULAR HEMOGLOBIN 31 pg (25-35); MEAN CORPUSCULAR HGB CONC 34 g/dL (31-37); MEAN CORPUSCULAR VOLUME 92 fL (79-100); MONO # 0.2 x10^3/uL (0.0-1.1); MONO % 5 % (0-9); NEUT % 61 % (31-73); PLATELET COUNT 165 x10^3/uL (140-400); RED BLOOD COUNT 3.25 x10^6/uL (3.50-5.40); RED CELL DISTRIBUTION WIDTH 14.5 % (11.5-14.5); WHITE BLOOD COUNT 3.3 x10^3/uL (4.0-11.0)
[2019-11-02 02:51] VITALS: BP 143/56
[2019-11-02 03:16] LABS: ANION GAP 10 (6-14); BLOOD UREA NITROGEN 18 mg/dL (7-20); CALCIUM 8.3 mg/dL (8.5-10.1); CARBON DIOXIDE 26 mmol/L (21-32); CHLORIDE 101 mmol/L (98-107); CREATININE 0.8 mg/dL (0.6-1.0); GFR 84.2; GLUCOSE 208 mg/dL (70-99); MAGNESIUM 1.6 mg/dL (1.8-2.4); POTASSIUM 4.1 mmol/L (3.5-5.1); SODIUM 137 mmol/L (136-145); VANC TR 9.6 mcg/mL (10.0-20.0)
[2019-11-02] MEDS: oxyCODONE IR 5 MG TABLET PO PRN (03:55)
[2019-11-02] MEDS: VANCOMYCIN 1 GM in IV NORMAL SALINE 250ML 250 ML IV SCH (03:55)
[2019-11-02] MEDS: IV 1/2 NORMAL SALINE 1,000 ML IV SCH (04:01)
[2019-11-02] MEDS: VANCOMYCIN PER PHARMACY MC PRN (04:52)
--- NOTE | 2019-11-02 04:52 | NUR ---
Pharmacy Vancomycin Dosing Note S:Consulted to monitor and dose vancomycin started 10/31/19. O:MIS LEE is a 79 year old F with Bacteremia . Height: 5 feet, 7 inches Weight: 66.4 kg [place] Body Weight: 61.60 Adjusted Body Weight: 63.52 Dosing Weight: Actual Other Antibiotics: N/A LABS: Last BUN: 16 Last Creatinine: 0.8 Creatinine Clearance: 17 mL/min Last WBC: 3.7 Last Procalcitonin: Tmax (past 24 hours): 98.8 Microbiology: BLOOD CX (10/29): GPC I/O: 1420/- Drug Levels: Last Trough level: 9.6 on 11/02/19 at 0230 Last dose given 11/01/19 at 0912 Vancomycin Dosing: Loading Dose: 1500 mg x1 Dosing Weight: Actual Target Trough: 15-20 A: Based on: TROUGH P: 1. Begin Vancomycin 1000 mg IV q12h 2. Follow up Trough level on 11/03/19 at 1530 3. Pharmacy will continue to monitor, follow and adjust therapy as needed. JOCELYNE GUAJARDO RPH, 11/02/192 Signed: 11/02/19 at 0452 by JOCELYNE GUAJARDO RPH PHA
[2019-11-02 07:15] VITALS: BP 137/57
[2019-11-02] MEDS: INSULIN LISPRO 300 UNITS/3 ML VIAL. SQ SCH ×3 (07:55→16:27)
--- NOTE | 2019-11-02 08:39 | PDOC ---
PROGRESS NOTES Assessment Problems Medical Problems: (1) Back pain Status: Acute (2) UTI (lower urinary tract infection) Status: Acute Leg weakness due to combination of diabetic peripheral neuropathy and lumbar multilevel spondylosis and spinal stenosis. She also has cervical spondylosis without obvious myelopathy although this may be masked due to her neuropathy. This is a subacute presentation on top of chronic disease. Plan The patient refuses immediate surgery and I am not sure it would help much anyway. Conservative management. Outpatient pain clinic Rehabilitation modalities under the direction of Dr. Montero, he did SI joint injection, which helped. Inpatient rehab, plans to go to [facility] Brain MRI canceled, no evidence of stroke Subjective pain is better Objective Vital Signs Date Time Temp Pulse Resp B/P (MAP) Pulse Ox O2 Delivery O2 Flow Rate FiO2 11/02/19 07:52 Room Air 11/02/19 07:15 97.9 62 20 137/57 (83) 95 97.9 Intake and Output 11/02/19 07:00 Intake Total 1120 ml Balance 1120 ml Intake Oral 1120 ml # Voids 5 # Bowel Movements 2 PHYSICAL EXAM Alert. Oriented to time, place and person. PERRL. EOMI. CN: no focal findings. Muscle tone: normal. Muscle strength: 5-/5 in the arms, 3-4/5 in the legs, worse on the right leg DTR:1+ Plantar reflex: flexor Gait: not examined in bed. Sensory exam: decreased vibration appreciation in feet No cerebellar signs elicited. Review of Relevant I have reviewed the following items shruthi (where applicable) has been applied. Labs Laboratory Tests Test 10/31/19 10:35 10/31/19 13:53 10/31/19 16:21 10/31/19 21:03 Glucose (Fingerstick) 103 mg/dL (70-99) 219 mg/dL (70-99) 220 mg/dL (70-99) 278 mg/dL (70-99) Test 11/01/19 03:20 11/01/19 07:06 11/01/19 10:47 11/01/19 16:31 Sodium Level 136 mmol/L (136-145) Potassium Level 4.0 mmol/L (3.5-5.1) Chloride Level 100 mmol/L (98-107) Carbon Dioxide Level 28 mmol/L (21-32) Anion Gap 8 (6-14) Blood Urea Nitrogen 16 mg/dL (7-20) Creatinine 0.8 mg/dL (0.6-1.0) Estimated GFR (Cockcroft-Gault) 84.2 Glucose Level 208 mg/dL (70-99) Calcium Level 8.5 mg/dL (8.5-10.1) Magnesium Level 1.7 mg/dL (1.8-2.4) Glucose (Fingerstick) 166 mg/dL (70-99) 221 mg/dL (70-99) 162 mg/dL (70-99) Test 11/01/19 20:30 11/02/19 02:38 11/02/19 07:49 Glucose (Fingerstick) 163 mg/dL (70-99) 142 mg/dL (70-99) White Blood Count 3.3 x10^3/uL (4.0-11.0) Red Blood Count 3.25 x10^6/uL (3.50-5.40) Hemoglobin 10.1 g/dL (12.0-15.5) Hematocrit 29.9 % (36.0-47.0) Mean Corpuscular Volume 92 fL (79-100) Mean Corpuscular Hemoglobin 31 pg (25-35) Mean Corpuscular Hemoglobin Concent 34 g/dL (31-37) Red Cell Distribution Width 14.5 % (11.5-14.5) Platelet Count 165 x10^3/uL (140-400) Neutrophils (%) (Auto) 61 % (31-73) Lymphocytes (%) (Auto) 32 % (24-48) Monocytes (%) (Auto) 5 % (0-9) Eosinophils (%) (Auto) 2 % (0-3) Basophils (%) (Auto) 1 % (0-3) Neutrophils # (Auto) 2.0 x10^3/uL (1.8-7.7) Lymphocytes # (Auto) 1.1 x10^3/uL (1.0-4.8) Monocytes # (Auto) 0.2 x10^3/uL (0.0-1.1) Eosinophils # (Auto) 0.1 x10^3/uL (0.0-0.7) Basophils # (Auto) 0.0 x10^3/uL (0.0-0.2) Sodium Level 137 mmol/L (136-145) Potassium Level 4.1 mmol/L (3.5-5.1) Chloride Level 101 mmol/L (98-107) Carbon Dioxide Level 26 mmol/L (21-32) Anion Gap 10 (6-14) Blood Urea Nitrogen 18 mg/dL (7-20) Creatinine 0.8 mg/dL (0.6-1.0) Estimated GFR (Cockcroft-Gault) 84.2 Glucose Level 208 mg/dL (70-99) Calcium Level 8.3 mg/dL (8.5-10.1) Magnesium Level 1.6 mg/dL (1.8-2.4) Vancomycin Level Trough 9.6 mcg/mL (10.0-20.0) Vancomycin Last Dose Date 10/31 Vancomycin Last Dose Time 0900 Laboratory Tests Test 11/01/19 10:47 11/01/19 16:31 11/01/19 20:30 11/02/19 02:38 Glucose (Fingerstick) 221 mg/dL (70-99) 162 mg/dL (70-99) 163 mg/dL (70-99) White Blood Count 3.3 x10^3/uL (4.0-11.0) Red Blood Count 3.25 x10^6/uL (3.50-5.40) Hemoglobin 10.1 g/dL (12.0-15.5) Hematocrit 29.9 % (36.0-47.0) Mean Corpuscular Volume 92 fL (79-100) Mean Corpuscular Hemoglobin 31 pg (25-35) Mean Corpuscular Hemoglobin Concent 34 g/dL (31-37) Red Cell Distribution Width 14.5 % (11.5-14.5) Platelet Count 165 x10^3/uL (140-400) Neutrophils (%) (Auto) 61 % (31-73) Lymphocytes (%) (Auto) 32 % (24-48) Monocytes (%) (Auto) 5 % (0-9) Eosinophils (%) (Auto) 2 % (0-3) Basophils (%) (Auto) 1 % (0-3) Neutrophils # (Auto) 2.0 x10^3/uL (1.8-7.7) Lymphocytes # (Auto) 1.1 x10^3/uL (1.0-4.8) Monocytes # (Auto) 0.2 x10^3/uL (0.0-1.1) Eosinophils # (Auto) 0.1 x10^3/uL (0.0-0.7) Basophils # (Auto) 0.0 x10^3/uL (0.0-0.2) Sodium Level 137 mmol/L (136-145) Potassium Level 4.1 mmol/L (3.5-5.1) Chloride Level 101 mmol/L (98-107) Carbon Dioxide Level 26 mmol/L (21-32) Anion Gap 10 (6-14) Blood Urea Nitrogen 18 mg/dL (7-20) Creatinine 0.8 mg/dL (0.6-1.0) Estimated GFR (Cockcroft-Gault) 84.2 Glucose Level 208 mg/dL (70-99) Calcium Level 8.3 mg/dL (8.5-10.1) Magnesium Level 1.6 mg/dL (1.8-2.4) Vancomycin Level Trough 9.6 mcg/mL (10.0-20.0) Vancomycin Last Dose Date 10/31 Vancomycin Last Dose Time 0900 Test 11/02/19 07:49 Glucose (Fingerstick) 142 mg/dL (70-99) Microbiology 10/30/19 Urine Culture - Preliminary, Resulted 10/30/19 Blood Culture - Final, Complete Medications Current Medications Sodium Chloride 1,000 ml @ 1,000 mls/hr 1X ONCE IV Last administered on 10/30/19at 14:41; Start 10/30/19 at 14:15; Stop 10/30/19 at 15:14; Status DC Ceftriaxone Sodium (Rocephin) 1 gm 1X ONCE IVP Last administered on 10/30/19at 16:04; Start 10/30/19 at 15:15; Stop 10/30/19 at 15:16; Status DC Ondansetron HCl (Zofran) 4 mg PRN Q8HRS PRN IV NAUSEA/VOMITING; Start 10/30/19 at 15:30; Stop 10/31/19 at 15:29; Status DC Sodium Chloride 1,000 ml @ 100 mls/hr Q10H IV Last administered on 10/30/19at 16:05; Start 10/30/19 at 15:17; Stop 10/30/19 at 16:22; Status DC Acetaminophen (Tylenol) 650 mg PRN Q4HRS PRN PO FEVER > 100.3'F; Start 10/30/19 at 15:30; Stop 10/31/19 at 14:16; Status DC Enoxaparin Sodium (Lovenox 40mg Syringe) 40 mg Q24H SQ Last administered on 11/01/19at 22:03; Start 10/30/19 at 21:00 Acetaminophen (Tylenol) 650 mg PRN Q6HRS PRN PO MILD PAIN / TEMP > 100.3'F; Start 10/30/19 at 16:15 Amlodipine Besylate (Norvasc) 10 mg DAILY PO Last administered on 10/31/19at 08:42; Start 10/31/19 at 09:00; Stop 11/01/19 at 10:21; Status DC Folic Acid (Folic Acid) 1 mg DAILY PO Last administered on 11/01/19at 09:09; Start 10/31/19 at 09:00 Gabapentin (Neurontin) 300 mg TID PO Last administered on 11/01/19at 22:02; Start 10/30/19 at 21:00 Hydrochlorothiazide (Hydrodiuril) 25 mg DAILY PO Last administered on 10/31/19at 08:41; Start 10/31/19 at 09:00 Insulin Glargine (Lantus Syringe) 10 unit QHS SQ Last administered on 10/30/19at 21:05; Start 10/30/19 at 21:00; Stop 10/31/19 at 10:29; Status DC Losartan Potassium (Cozaar) 100 mg DAILY PO Last administered on 10/31/19at 08:41; Start 10/31/19 at 09:00 Metformin HCl (Glucophage) 1,000 mg BIDWMEALS PO Last administered on 11/01/19at 17:04; Start 10/30/19 at 17:00 Methotrexate (Rheumatrex) 15 mg WEEKLY PO Last administered on 10/30/19at 20:43; Start 10/30/19 at 18:00 Oxycodone HCl (Roxicodone) 5 mg PRN BID PRN PO SEVERE PAIN Last administered on 11/02/19at 03:55; Start 10/30/19 at 16:30 Tamsulosin HCl (Flomax) 0.4 mg DAILY PO Last administered on 11/01/19at 09:09; Start 10/31/19 at 09:00 Insulin Human Lispro (HumaLOG) 0-6 UNITS TIDWMEALS SQ Last administered on 11/01/19at 17:07; Start 10/30/19 at 17:00 Sodium Chloride 1,000 ml @ 40 mls/hr Q24H IV Last administered on 11/02/19at 04:01; Start 10/30/19 at 16:15 Clonidine HCl (Catapres) 0.1 mg Q6HRS PRN PO HYPERTENSION; Start 10/30/19 at 16:15 Magnesium Hydroxide (Milk Of Magnesia) 2,400 mg PRN DAILY PRN PO CONSTIPATION; Start 10/30/19 at 16:45 Methylprednisolone Acetate (DEPO-Medrol 40MG VIAL) 40 mg 1X ONCE IM Last administered on 10/31/19at 10:30; Start 10/31/19 at 10:30; Stop 10/31/19 at 10:31; Status DC Bupivacaine HCl (Sensorcaine-Mpf 0.25%) 10 ml 1X ONCE IJ Last administered on 10/31/19at 10:30; Start 10/31/19 at 10:30; Stop 10/31/19 at 10:31; Status DC Diclofenac Sodium (Voltaren) 1 demetra BID TP Last administered on 11/01/19at 22:03; Start 10/31/19 at 10:00 Magnesium Sulfate 100 ml @ 25 mls/hr 1X ONCE IV Last administered on 10/31/19at 11:16; Start 10/31/19 at 11:00; Stop 10/31/19 at 14:59; Status DC Polyethylene Glycol (miraLAX PACKET) 17 gm DAILY PO Last administered on 11/01/19at 09:10; Start 10/31/19 at 12:00 Lactulose (Lactulose) 20 gm Q2H PO ; Start 10/31/19 at 13:00; Stop 10/31/19 at 15:01; Status DC Vancomycin HCl (Vanco Per Pharmacy) 1 each Q12HR PRN MC SEE COMMENTS Last administered on 11/02/19at 04:52; Start 10/31/19 at 15:30 Vancomycin HCl 1.5 gm/Sodium Chloride 500 ml @ 250 mls/hr 1X ONCE IV Last administered on 10/31/19at 15:37; Start 10/31/19 at 15:30; Stop 10/31/19 at 17:29; Status DC Vancomycin HCl 1 gm/Sodium Chloride 250 ml @ 250 mls/hr Q18H IV Last administered on 11/02/19at 03:55; Start 11/01/19 at 09:00; Stop 11/02/19 at 08:59 Vancomycin HCl (Vancomycin Trough Level) 1 each 1X ONCE MC Last administered on 11/02/19at 02:30; Start 11/02/19 at 02:30; Stop 11/02/19 at 02:31; Status DC Amlodipine Besylate (Norvasc) 5 mg DAILY PO Last administered on 11/01/19at 12:15; Start 11/01/19 at 11:00 Magnesium Sulfate 50 ml @ 25 mls/hr 1X ONCE IV Last administered on 11/01/19at 12:14; Start 11/01/19 at 11:00; Stop 11/01/19 at 12:59; Status DC Vancomycin HCl 1 gm/Sodium Chloride 250 ml @ 250 mls/hr Q12H IV ; Start 11/02/19 at 16:00 Vancomycin HCl (Vancomycin Trough Level) 1 each 1X ONCE MC ; Start 11/03/19 at 15:30; Stop 11/03/19 at 15:31 Active Scripts Active Folic Acid 1 Mg Tablet 1 Mg PO DAILY Reported Levemir (Insulin Detemir) 100 Unit/1 Ml Vial 1 Unit SQ QHS Flomax (Tamsulosin Hcl) 0.4 Mg Cap.er.24h 1 Cap PO DAILY Percocet 5-325 Mg Tablet (Oxycodone/Acetaminophen) 1 Each Tablet 1 Tab PO PRN BID PRN MDD 2 Tablet(s) 5 Days Hydrocodone-Apap 5-325 (Hydrocodone Bit/Acetaminophen) 1 Tab Tablet 1 Tab PO PRN Q8HRS PRN Losartan Potassium 100 Mg Tablet 100 Mg PO DAILY Methotrexate (Methotrexate Sodium) 2.5 Mg Tablet 6 Tab PO WEEKLY 15mg Q Thursday Melatonin 10 Mg Capsule 1 Cap PO QHS PRN 30 Days Amlodipine Besylate 10 Mg Tablet 10 Mg PO DAILY Gabapentin (Gabapentin) 300 Mg Capsule 300 Mg PO TID Tylenol (Acetaminophen) 325 Mg Tablet 2 Tab PO PRN Q6HRS PRN Metformin Hcl 1,000 Mg Tablet 1,000 Mg PO BIDBFRMEAL Vitals/I & O Vital Sign - Last 24 Hours 11/01/19 11/01/19 11/01/19 11/01/19 09:00 09:00 10:58 12:15 Temp 98.2 98.2 Pulse 72 72 68 68 Resp 17 B/P (MAP) 102/48 102/48 149/53 (85) 149/53 Pulse Ox 98 O2 Delivery Room Air 11/01/19 11/01/19 11/01/19 11/01/19 12:17 13:35 14:56 19:00 Temp 98.1 98.5 98.1 98.5 Pulse 78 68 Resp 16 17 B/P (MAP) 155/83 (107) 119/48 (71) Pulse Ox 100 100 O2 Delivery Room Air Room Air Room Air Room Air 11/01/19 11/01/19 11/02/19 11/02/19 19:30 23:19 02:51 03:55 Temp 98.4 98.2 98.4 98.2 Pulse 63 72 Resp 17 19 B/P (MAP) 136/40 (72) 143/56 (85) Pulse Ox 98 99 99 O2 Delivery Room Air Room Air Room Air Room Air 11/02/19 11/02/19 11/02/19 04:52 07:15 07:52 Temp 97.9 97.9 Pulse 62 Resp 20 B/P (MAP) 137/57 (83) Pulse Ox 99 95 O2 Delivery Room Air Room Air Room Air Intake and Output 11/01/19 11/01/19 11/02/19 15:00 23:00 07:00 Intake Total 640 ml 400 ml 80 ml Balance 640 ml 400 ml 80 ml PHUONG MITCHELL MD November 02, 2019 08:39
[2019-11-02] MEDS: TAMSULOSIN 0.4 MG CAP.ER.24H. PO SCH (08:59)
[2019-11-02] MEDS: amLODIPine BESYLATE 5 MG TABLET PO SCH (08:59)
[2019-11-02] MEDS: FOLIC ACID 1 MG TABLET. PO SCH (08:59)
[2019-11-02] MEDS: GABAPENTIN 300 MG CAPSULE. PO SCH ×2 (08:59→14:33)
[2019-11-02] MEDS: hydroCHLOROthiazide 25 MG TABLET PO SCH (08:59)
[2019-11-02] MEDS: DICLOFENAC SODIUM 1% TOPICAL GEL 100GM TUBE. TP SCH (08:59)
[2019-11-02] MEDS: POLYETHYLENE GLYCOL 3350 17 GM PACKET. PO SCH (08:59)
[2019-11-02] MEDS: metFORMIN 500 MG TABLET PO SCH ×2 (08:59→16:26)
[2019-11-02] MEDS: LOSARTAN POTASSIUM 50 MG TABLET. PO SCH (09:00)
--- NOTE | 2019-11-02 09:26 | PDOC ---
PROGRESS NOTES Subjective Subjective No new complaints. Objective Objective Vital Signs Date Time Temp Pulse Resp B/P (MAP) Pulse Ox O2 Delivery O2 Flow Rate FiO2 11/02/19 09:00 62 137/57 11/02/19 07:52 Room Air 11/02/19 07:15 97.9 20 95 97.9 Intake and Output 11/02/19 07:00 Intake Total 1120 ml Balance 1120 ml Intake Oral 1120 ml # Voids 5 # Bowel Movements 2 Physical Exam Physical Exam She is alert,sitting on commode and she is comfortable and she is working with physical and occupational therapy. Assessment Assessment Problems Medical Problems: (1) Back pain Status: Acute (2) UTI (lower urinary tract infection) Status: Acute Plan Plan of Care Agree with plans for transfer to rehab unit or SNF when medically stable. Comment Review of Relevant I have reviewed the following items shruthi (where applicable) has been applied. Labs Laboratory Tests Test 10/31/19 10:35 10/31/19 13:53 10/31/19 16:21 10/31/19 21:03 Glucose (Fingerstick) 103 mg/dL (70-99) 219 mg/dL (70-99) 220 mg/dL (70-99) 278 mg/dL (70-99) Test 11/01/19 03:20 11/01/19 07:06 11/01/19 10:47 11/01/19 16:31 Sodium Level 136 mmol/L (136-145) Potassium Level 4.0 mmol/L (3.5-5.1) Chloride Level 100 mmol/L (98-107) Carbon Dioxide Level 28 mmol/L (21-32) Anion Gap 8 (6-14) Blood Urea Nitrogen 16 mg/dL (7-20) Creatinine 0.8 mg/dL (0.6-1.0) Estimated GFR (Cockcroft-Gault) 84.2 Glucose Level 208 mg/dL (70-99) Calcium Level 8.5 mg/dL (8.5-10.1) Magnesium Level 1.7 mg/dL (1.8-2.4) Glucose (Fingerstick) 166 mg/dL (70-99) 221 mg/dL (70-99) 162 mg/dL (70-99) Test 11/01/19 20:30 11/02/19 02:38 11/02/19 07:49 Glucose (Fingerstick) 163 mg/dL (70-99) 142 mg/dL (70-99) White Blood Count 3.3 x10^3/uL (4.0-11.0) Red Blood Count 3.25 x10^6/uL (3.50-5.40) Hemoglobin 10.1 g/dL (12.0-15.5) Hematocrit 29.9 % (36.0-47.0) Mean Corpuscular Volume 92 fL (79-100) Mean Corpuscular Hemoglobin 31 pg (25-35) Mean Corpuscular Hemoglobin Concent 34 g/dL (31-37) Red Cell Distribution Width 14.5 % (11.5-14.5) Platelet Count 165 x10^3/uL (140-400) Neutrophils (%) (Auto) 61 % (31-73) Lymphocytes (%) (Auto) 32 % (24-48) Monocytes (%) (Auto) 5 % (0-9) Eosinophils (%) (Auto) 2 % (0-3) Basophils (%) (Auto) 1 % (0-3) Neutrophils # (Auto) 2.0 x10^3/uL (1.8-7.7) Lymphocytes # (Auto) 1.1 x10^3/uL (1.0-4.8) Monocytes # (Auto) 0.2 x10^3/uL (0.0-1.1) Eosinophils # (Auto) 0.1 x10^3/uL (0.0-0.7) Basophils # (Auto) 0.0 x10^3/uL (0.0-0.2) Sodium Level 137 mmol/L (136-145) Potassium Level 4.1 mmol/L (3.5-5.1) Chloride Level 101 mmol/L (98-107) Carbon Dioxide Level 26 mmol/L (21-32) Anion Gap 10 (6-14) Blood Urea Nitrogen 18 mg/dL (7-20) Creatinine 0.8 mg/dL (0.6-1.0) Estimated GFR (Cockcroft-Gault) 84.2 Glucose Level 208 mg/dL (70-99) Calcium Level 8.3 mg/dL (8.5-10.1) Magnesium Level 1.6 mg/dL (1.8-2.4) Vancomycin Level Trough 9.6 mcg/mL (10.0-20.0) Vancomycin Last Dose Date 10/31 Vancomycin Last Dose Time 0900 Laboratory Tests Test 11/01/19 10:47 11/01/19 16:31 11/01/19 20:30 11/02/19 02:38 Glucose (Fingerstick) 221 mg/dL (70-99) 162 mg/dL (70-99) 163 mg/dL (70-99) White Blood Count 3.3 x10^3/uL (4.0-11.0) Red Blood Count 3.25 x10^6/uL (3.50-5.40) Hemoglobin 10.1 g/dL (12.0-15.5) Hematocrit 29.9 % (36.0-47.0) Mean Corpuscular Volume 92 fL (79-100) Mean Corpuscular Hemoglobin 31 pg (25-35) Mean Corpuscular Hemoglobin Concent 34 g/dL (31-37) Red Cell Distribution Width 14.5 % (11.5-14.5) Platelet Count 165 x10^3/uL (140-400) Neutrophils (%) (Auto) 61 % (31-73) Lymphocytes (%) (Auto) 32 % (24-48) Monocytes (%) (Auto) 5 % (0-9) Eosinophils (%) (Auto) 2 % (0-3) Basophils (%) (Auto) 1 % (0-3) Neutrophils # (Auto) 2.0 x10^3/uL (1.8-7.7) Lymphocytes # (Auto) 1.1 x10^3/uL (1.0-4.8) Monocytes # (Auto) 0.2 x10^3/uL (0.0-1.1) Eosinophils # (Auto) 0.1 x10^3/uL (0.0-0.7) Basophils # (Auto) 0.0 x10^3/uL (0.0-0.2) Sodium Level 137 mmol/L (136-145) Potassium Level 4.1 mmol/L (3.5-5.1) Chloride Level 101 mmol/L (98-107) Carbon Dioxide Level 26 mmol/L (21-32) Anion Gap 10 (6-14) Blood Urea Nitrogen 18 mg/dL (7-20) Creatinine 0.8 mg/dL (0.6-1.0) Estimated GFR (Cockcroft-Gault) 84.2 Glucose Level 208 mg/dL (70-99) Calcium Level 8.3 mg/dL (8.5-10.1) Magnesium Level 1.6 mg/dL (1.8-2.4) Vancomycin Level Trough 9.6 mcg/mL (10.0-20.0) Vancomycin Last Dose Date 10/31 Vancomycin Last Dose Time 0900 Test 11/02/19 07:49 Glucose (Fingerstick) 142 mg/dL (70-99) Microbiology 10/30/19 Urine Culture - Final, Complete 10/30/19 Antimicrobic Susceptibility - Final, Complete 10/30/19 Blood Culture - Final, Complete Medications Current Medications Sodium Chloride 1,000 ml @ 1,000 mls/hr 1X ONCE IV Last administered on 10/30/19at 14:41; Start 10/30/19 at 14:15; Stop 10/30/19 at 15:14; Status DC Ceftriaxone Sodium (Rocephin) 1 gm 1X ONCE IVP Last administered on 10/30/19at 16:04; Start 10/30/19 at 15:15; Stop 10/30/19 at 15:16; Status DC Ondansetron HCl (Zofran) 4 mg PRN Q8HRS PRN IV NAUSEA/VOMITING; Start 10/30/19 at 15:30; Stop 10/31/19 at 15:29; Status DC Sodium Chloride 1,000 ml @ 100 mls/hr Q10H IV Last administered on 10/30/19at 16:05; Start 10/30/19 at 15:17; Stop 10/30/19 at 16:22; Status DC Acetaminophen (Tylenol) 650 mg PRN Q4HRS PRN PO FEVER > 100.3'F; Start 10/30/19 at 15:30; Stop 10/31/19 at 14:16; Status DC Enoxaparin Sodium (Lovenox 40mg Syringe) 40 mg Q24H SQ Last administered on 11/01/19at 22:03; Start 10/30/19 at 21:00 Acetaminophen (Tylenol) 650 mg PRN Q6HRS PRN PO MILD PAIN / TEMP > 100.3'F; Start 10/30/19 at 16:15 Amlodipine Besylate (Norvasc) 10 mg DAILY PO Last administered on 10/31/19 08:42; Start 10/31/19 at 09:00; Stop 11/01/19 at 10:21; Status DC Folic Acid (Folic Acid) 1 mg DAILY PO Last administered on 11/02/19 08:59; Start 10/31/19 at 09:00 Gabapentin (Neurontin) 300 mg TID PO Last administered on 11/02/19 08:59; Start 10/30/19 at 21:00 Hydrochlorothiazide (Hydrodiuril) 25 mg DAILY PO Last administered on 11/02/19 08:59; Start 10/31/19 at 09:00 Insulin Glargine (Lantus Syringe) 10 unit QHS SQ Last administered on 10/30/19 21:05; Start 10/30/19 at 21:00; Stop 10/31/19 at 10:29; Status DC Losartan Potassium (Cozaar) 100 mg DAILY PO Last administered on 11/02/19 09:00; Start 10/31/19 at 09:00 Metformin HCl (Glucophage) 1,000 mg BIDWMEALS PO Last administered on 11/02/19 08:59; Start 10/30/19 at 17:00 Methotrexate (Rheumatrex) 15 mg WEEKLY PO Last administered on 10/30/19 20:43; Start 10/30/19 at 18:00 Oxycodone HCl (Roxicodone) 5 mg PRN BID PRN PO SEVERE PAIN Last administered on 11/02/19 03:55; Start 10/30/19 at 16:30 Tamsulosin HCl (Flomax) 0.4 mg DAILY PO Last administered on 11/02/19 08:59; Start 10/31/19 at 09:00 Insulin Human Lispro (HumaLOG) 0-6 UNITS TIDWMEALS SQ Last administered on 11/01/19 17:07; Start 10/30/19 at 17:00 Sodium Chloride 1,000 ml @ 40 mls/hr Q24H IV Last administered on 11/02/19 04:01; Start 10/30/19 at 16:15 Clonidine HCl (Catapres) 0.1 mg Q6HRS PRN PO HYPERTENSION; Start 10/30/19 at 16:15 Magnesium Hydroxide (Milk Of Magnesia) 2,400 mg PRN DAILY PRN PO CONSTIPATION; Start 10/30/19 at 16:45 Methylprednisolone Acetate (DEPO-Medrol 40MG VIAL) 40 mg 1X ONCE IM Last administered on 10/31/19at 10:30; Start 10/31/19 at 10:30; Stop 10/31/19 at 10:31; Status DC Bupivacaine HCl (Sensorcaine-Mpf 0.25%) 10 ml 1X ONCE IJ Last administered on 10/31/19at 10:30; Start 10/31/19 at 10:30; Stop 10/31/19 at 10:31; Status DC Diclofenac Sodium (Voltaren) 1 demetra BID TP Last administered on 11/02/19at 08:59; Start 10/31/19 at 10:00 Magnesium Sulfate 100 ml @ 25 mls/hr 1X ONCE IV Last administered on 10/31/19at 11:16; Start 10/31/19 at 11:00; Stop 10/31/19 at 14:59; Status DC Polyethylene Glycol (miraLAX PACKET) 17 gm DAILY PO Last administered on 11/02/19at 08:59; Start 10/31/19 at 12:00 Lactulose (Lactulose) 20 gm Q2H PO ; Start 10/31/19 at 13:00; Stop 10/31/19 at 15:01; Status DC Vancomycin HCl (Vanco Per Pharmacy) 1 each Q12HR PRN MC SEE COMMENTS Last administered on 11/02/19at 04:52; Start 10/31/19 at 15:30 Vancomycin HCl 1.5 gm/Sodium Chloride 500 ml @ 250 mls/hr 1X ONCE IV Last administered on 10/31/19at 15:37; Start 10/31/19 at 15:30; Stop 10/31/19 at 17:29; Status DC Vancomycin HCl 1 gm/Sodium Chloride 250 ml @ 250 mls/hr Q18H IV Last administered on 11/02/19at 03:55; Start 11/01/19 at 09:00; Stop 11/02/19 at 08:59; Status DC Vancomycin HCl (Vancomycin Trough Level) 1 each 1X ONCE MC Last administered on 11/02/19at 02:30; Start 11/02/19 at 02:30; Stop 11/02/19 at 02:31; Status DC Amlodipine Besylate (Norvasc) 5 mg DAILY PO Last administered on 11/02/19at 08:59; Start 11/01/19 at 11:00 Magnesium Sulfate 50 ml @ 25 mls/hr 1X ONCE IV Last administered on 11/01/19at 12:14; Start 11/01/19 at 11:00; Stop 11/01/19 at 12:59; Status DC Vancomycin HCl 1 gm/Sodium Chloride 250 ml @ 250 mls/hr Q12H IV ; Start 11/02/19 at 16:00 Vancomycin HCl (Vancomycin Trough Level) 1 each 1X ONCE MC ; Start 11/03/19 at 15:30; Stop 11/03/19 at 15:31 Active Scripts Active Folic Acid 1 Mg Tablet 1 Mg PO DAILY Reported Levemir (Insulin Detemir) 100 Unit/1 Ml Vial 1 Unit SQ QHS Flomax (Tamsulosin Hcl) 0.4 Mg Cap.er.24h 1 Cap PO DAILY Percocet 5-325 Mg Tablet (Oxycodone/Acetaminophen) 1 Each Tablet 1 Tab PO PRN BID PRN MDD 2 Tablet(s) 5 Days Hydrocodone-Apap 5-325 (Hydrocodone Bit/Acetaminophen) 1 Tab Tablet 1 Tab PO PRN Q8HRS PRN Losartan Potassium 100 Mg Tablet 100 Mg PO DAILY Methotrexate (Methotrexate Sodium) 2.5 Mg Tablet 6 Tab PO WEEKLY 15mg Q Thursday Melatonin 10 Mg Capsule 1 Cap PO QHS PRN 30 Days Amlodipine Besylate 10 Mg Tablet 10 Mg PO DAILY Gabapentin (Gabapentin) 300 Mg Capsule 300 Mg PO TID Tylenol (Acetaminophen) 325 Mg Tablet 2 Tab PO PRN Q6HRS PRN Metformin Hcl 1,000 Mg Tablet 1,000 Mg PO BIDBFRMEAL Vitals/I & O Vital Sign - Last 24 Hours 11/01/19 11/01/19 11/01/19 11/01/19 10:58 12:15 12:17 13:35 Temp 98.2 98.2 Pulse 68 68 Resp 17 B/P (MAP) 149/53 (85) 149/53 Pulse Ox 98 O2 Delivery Room Air Room Air Room Air 11/01/19 11/01/19 11/01/19 11/01/19 14:56 19:00 19:30 23:19 Temp 98.1 98.5 98.4 98.1 98.5 98.4 Pulse 78 68 63 Resp 16 17 17 B/P (MAP) 155/83 (107) 119/48 (71) 136/40 (72) Pulse Ox 100 100 98 O2 Delivery Room Air Room Air Room Air Room Air 11/02/19 11/02/19 11/02/19 11/02/19 02:51 03:55 04:52 07:15 Temp 98.2 97.9 98.2 97.9 Pulse 72 62 Resp 19 20 B/P (MAP) 143/56 (85) 137/57 (83) Pulse Ox 99 99 99 95 O2 Delivery Room Air Room Air Room Air Room Air 11/02/19 11/02/19 11/02/19 07:52 08:59 09:00 Pulse 62 62 B/P (MAP) 137/57 137/57 O2 Delivery Room Air Intake and Output 11/01/19 11/01/19 11/02/19 15:00 23:00 07:00 Intake Total 640 ml 400 ml 80 ml Balance 640 ml 400 ml 80 ml BELLO SHEPPARD MD November 02, 2019 09:26
--- NOTE | 2019-11-02 10:31 | PDOC ---
PROGRESS NOTES Subjective Subjective klebsiella in urine is contaminant as she has no pyuria. feels better. lab reviewed. magnesium low,. has insomnia Objective Objective Vital Signs Date Time Temp Pulse Resp B/P (MAP) Pulse Ox O2 Delivery O2 Flow Rate FiO2 11/02/19 09:00 62 137/57 11/02/19 07:52 Room Air 11/02/19 07:15 97.9 20 95 97.9 Intake and Output 11/02/19 07:00 Intake Total 1120 ml Balance 1120 ml Intake Oral 1120 ml # Voids 5 # Bowel Movements 2 Physical Exam Abdomen: Soft Heart: Regular rate, Normal S1, Normal S2 Extremities: No edema General: Alert Lungs: Clear to auscultation Neuro: Normal speech Psych/Mental Status: Mental status NL Skin: No rashes Assessment Assessment Problems1. Generalized weakness with a fall. 2. Dehydration. resolved with iv fluids 3. Right leg weakness. improved 4. Anemia of chronic disease. 5. Diabetes mellitus type 2, on insulin with peripheral neuropathy 6. Hypertension. 7. Cervical spondylosis. Lumbar spinal stenosis hypomagnesemia 8. Rheumatoid arthritis. debility due to diabetic peripheral neuropathy and lumbar spinal stenosis GPC bacteremia 1/2 insomnia hyomagnesemia Medical Problems: (1) Back pain Status: Acute (2) UTI (lower urinary tract infection) Status: Acute Plan Plan of Care iv magnesium today start hs trazodone continue iv vancomycin and iv fluids dismiss today MARH Comment Review of Relevant I have reviewed the following items shruthi (where applicable) has been applied. Labs Laboratory Tests Test 10/31/19 10:35 10/31/19 13:53 10/31/19 16:21 10/31/19 21:03 Glucose (Fingerstick) 103 mg/dL (70-99) 219 mg/dL (70-99) 220 mg/dL (70-99) 278 mg/dL (70-99) Test 11/01/19 03:20 11/01/19 07:06 11/01/19 10:47 11/01/19 16:31 Sodium Level 136 mmol/L (136-145) Potassium Level 4.0 mmol/L (3.5-5.1) Chloride Level 100 mmol/L (98-107) Carbon Dioxide Level 28 mmol/L (21-32) Anion Gap 8 (6-14) Blood Urea Nitrogen 16 mg/dL (7-20) Creatinine 0.8 mg/dL (0.6-1.0) Estimated GFR (Cockcroft-Gault) 84.2 Glucose Level 208 mg/dL (70-99) Calcium Level 8.5 mg/dL (8.5-10.1) Magnesium Level 1.7 mg/dL (1.8-2.4) Glucose (Fingerstick) 166 mg/dL (70-99) 221 mg/dL (70-99) 162 mg/dL (70-99) Test 11/01/19 20:30 11/02/19 02:38 11/02/19 07:49 Glucose (Fingerstick) 163 mg/dL (70-99) 142 mg/dL (70-99) White Blood Count 3.3 x10^3/uL (4.0-11.0) Red Blood Count 3.25 x10^6/uL (3.50-5.40) Hemoglobin 10.1 g/dL (12.0-15.5) Hematocrit 29.9 % (36.0-47.0) Mean Corpuscular Volume 92 fL (79-100) Mean Corpuscular Hemoglobin 31 pg (25-35) Mean Corpuscular Hemoglobin Concent 34 g/dL (31-37) Red Cell Distribution Width 14.5 % (11.5-14.5) Platelet Count 165 x10^3/uL (140-400) Neutrophils (%) (Auto) 61 % (31-73) Lymphocytes (%) (Auto) 32 % (24-48) Monocytes (%) (Auto) 5 % (0-9) Eosinophils (%) (Auto) 2 % (0-3) Basophils (%) (Auto) 1 % (0-3) Neutrophils # (Auto) 2.0 x10^3/uL (1.8-7.7) Lymphocytes # (Auto) 1.1 x10^3/uL (1.0-4.8) Monocytes # (Auto) 0.2 x10^3/uL (0.0-1.1) Eosinophils # (Auto) 0.1 x10^3/uL (0.0-0.7) Basophils # (Auto) 0.0 x10^3/uL (0.0-0.2) Sodium Level 137 mmol/L (136-145) Potassium Level 4.1 mmol/L (3.5-5.1) Chloride Level 101 mmol/L (98-107) Carbon Dioxide Level 26 mmol/L (21-32) Anion Gap 10 (6-14) Blood Urea Nitrogen 18 mg/dL (7-20) Creatinine 0.8 mg/dL (0.6-1.0) Estimated GFR (Cockcroft-Gault) 84.2 Glucose Level 208 mg/dL (70-99) Calcium Level 8.3 mg/dL (8.5-10.1) Magnesium Level 1.6 mg/dL (1.8-2.4) Vancomycin Level Trough 9.6 mcg/mL (10.0-20.0) Vancomycin Last Dose Date 10/31 Vancomycin Last Dose Time 0900 Laboratory Tests Test 11/01/19 10:47 11/01/19 16:31 11/01/19 20:30 11/02/19 02:38 Glucose (Fingerstick) 221 mg/dL (70-99) 162 mg/dL (70-99) 163 mg/dL (70-99) White Blood Count 3.3 x10^3/uL (4.0-11.0) Red Blood Count 3.25 x10^6/uL (3.50-5.40) Hemoglobin 10.1 g/dL (12.0-15.5) Hematocrit 29.9 % (36.0-47.0) Mean Corpuscular Volume 92 fL (79-100) Mean Corpuscular Hemoglobin 31 pg (25-35) Mean Corpuscular Hemoglobin Concent 34 g/dL (31-37) Red Cell Distribution Width 14.5 % (11.5-14.5) Platelet Count 165 x10^3/uL (140-400) Neutrophils (%) (Auto) 61 % (31-73) Lymphocytes (%) (Auto) 32 % (24-48) Monocytes (%) (Auto) 5 % (0-9) Eosinophils (%) (Auto) 2 % (0-3) Basophils (%) (Auto) 1 % (0-3) Neutrophils # (Auto) 2.0 x10^3/uL (1.8-7.7) Lymphocytes # (Auto) 1.1 x10^3/uL (1.0-4.8) Monocytes # (Auto) 0.2 x10^3/uL (0.0-1.1) Eosinophils # (Auto) 0.1 x10^3/uL (0.0-0.7) Basophils # (Auto) 0.0 x10^3/uL (0.0-0.2) Sodium Level 137 mmol/L (136-145) Potassium Level 4.1 mmol/L (3.5-5.1) Chloride Level 101 mmol/L (98-107) Carbon Dioxide Level 26 mmol/L (21-32) Anion Gap 10 (6-14) Blood Urea Nitrogen 18 mg/dL (7-20) Creatinine 0.8 mg/dL (0.6-1.0) Estimated GFR (Cockcroft-Gault) 84.2 Glucose Level 208 mg/dL (70-99) Calcium Level 8.3 mg/dL (8.5-10.1) Magnesium Level 1.6 mg/dL (1.8-2.4) Vancomycin Level Trough 9.6 mcg/mL (10.0-20.0) Vancomycin Last Dose Date 10/31 Vancomycin Last Dose Time 0900 Test 11/02/19 07:49 Glucose (Fingerstick) 142 mg/dL (70-99) Microbiology 10/30/19 Urine Culture - Final, Complete 10/30/19 Antimicrobic Susceptibility - Final, Complete 10/30/19 Blood Culture - Final, Complete Medications Current Medications Sodium Chloride 1,000 ml @ 1,000 mls/hr 1X ONCE IV Last administered on 10/30/19at 14:41; Start 10/30/19 at 14:15; Stop 10/30/19 at 15:14; Status DC Ceftriaxone Sodium (Rocephin) 1 gm 1X ONCE IVP Last administered on 10/30/19at 16:04; Start 10/30/19 at 15:15; Stop 10/30/19 at 15:16; Status DC Ondansetron HCl (Zofran) 4 mg PRN Q8HRS PRN IV NAUSEA/VOMITING; Start 10/30/19 at 15:30; Stop 10/31/19 at 15:29; Status DC Sodium Chloride 1,000 ml @ 100 mls/hr Q10H IV Last administered on 10/30/19at 16:05; Start 10/30/19 at 15:17; Stop 10/30/19 at 16:22; Status DC Acetaminophen (Tylenol) 650 mg PRN Q4HRS PRN PO FEVER > 100.3'F; Start 10/30/19 at 15:30; Stop 10/31/19 at 14:16; Status DC Enoxaparin Sodium (Lovenox 40mg Syringe) 40 mg Q24H SQ Last administered on 11/01/19at 22:03; Start 10/30/19 at 21:00 Acetaminophen (Tylenol) 650 mg PRN Q6HRS PRN PO MILD PAIN / TEMP > 100.3'F; Start 10/30/19 at 16:15 Amlodipine Besylate (Norvasc) 10 mg DAILY PO Last administered on 10/31/19at 08:42; Start 10/31/19 at 09:00; Stop 11/01/19 at 10:21; Status DC Folic Acid (Folic Acid) 1 mg DAILY PO Last administered on 11/02/19at 08:59; Start 10/31/19 at 09:00 Gabapentin (Neurontin) 300 mg TID PO Last administered on 11/02/19at 08:59; Start 10/30/19 at 21:00 Hydrochlorothiazide (Hydrodiuril) 25 mg DAILY PO Last administered on 11/02/19at 08:59; Start 10/31/19 at 09:00 Insulin Glargine (Lantus Syringe) 10 unit QHS SQ Last administered on 10/30/19at 21:05; Start 10/30/19 at 21:00; Stop 10/31/19 at 10:29; Status DC Losartan Potassium (Cozaar) 100 mg DAILY PO Last administered on 11/02/19at 09:00; Start 10/31/19 at 09:00 Metformin HCl (Glucophage) 1,000 mg BIDWMEALS PO Last administered on 11/02/19at 08:59; Start 10/30/19 at 17:00 Methotrexate (Rheumatrex) 15 mg WEEKLY PO Last administered on 10/30/19at 20:43; Start 10/30/19 at 18:00 Oxycodone HCl (Roxicodone) 5 mg PRN BID PRN PO SEVERE PAIN Last administered on 11/02/19at 03:55; Start 10/30/19 at 16:30 Tamsulosin HCl (Flomax) 0.4 mg DAILY PO Last administered on 11/02/19at 08:59; Start 10/31/19 at 09:00 Insulin Human Lispro (HumaLOG) 0-6 UNITS TIDWMEALS SQ Last administered on 11/01/19at 17:07; Start 10/30/19 at 17:00 Sodium Chloride 1,000 ml @ 40 mls/hr Q24H IV Last administered on 11/02/19at 04:01; Start 10/30/19 at 16:15 Clonidine HCl (Catapres) 0.1 mg Q6HRS PRN PO HYPERTENSION; Start 10/30/19 at 16:15 Magnesium Hydroxide (Milk Of Magnesia) 2,400 mg PRN DAILY PRN PO CONSTIPATION; Start 10/30/19 at 16:45 Methylprednisolone Acetate (DEPO-Medrol 40MG VIAL) 40 mg 1X ONCE IM Last administered on 10/31/19at 10:30; Start 10/31/19 at 10:30; Stop 10/31/19 at 10:31; Status DC Bupivacaine HCl (Sensorcaine-Mpf 0.25%) 10 ml 1X ONCE IJ Last administered on 10/31/19at 10:30; Start 10/31/19 at 10:30; Stop 10/31/19 at 10:31; Status DC Diclofenac Sodium (Voltaren) 1 demetra BID TP Last administered on 11/02/19at 08:59; Start 10/31/19 at 10:00 Magnesium Sulfate 100 ml @ 25 mls/hr 1X ONCE IV Last administered on 0at 11:16; Start 10/31/19 at 11:00; Stop 10/31/19 at 14:59; Status DC Polyethylene Glycol (miraLAX PACKET) 17 gm DAILY PO Last administered on 11/02/19at 08:59; Start 10/31/19 at 12:00 Lactulose (Lactulose) 20 gm Q2H PO ; Start 10/31/19 at 13:00; Stop 10/31/19 at 15:01; Status DC Vancomycin HCl (Vanco Per Pharmacy) 1 each Q12HR PRN MC SEE COMMENTS Last administered on 11/02/19at 04:52; Start 10/31/19 at 15:30 Vancomycin HCl 1.5 gm/Sodium Chloride 500 ml @ 250 mls/hr 1X ONCE IV Last administered on 10/31/19at 15:37; Start 10/31/19 at 15:30; Stop 10/31/19 at 17:29; Status DC Vancomycin HCl 1 gm/Sodium Chloride 250 ml @ 250 mls/hr Q18H IV Last administered on 11/02/19at 03:55; Start 11/01/19 at 09:00; Stop 11/02/19 at 08:59; Status DC Vancomycin HCl (Vancomycin Trough Level) 1 each 1X ONCE MC Last administered on 11/02/19at 02:30; Start 11/02/19 at 02:30; Stop 11/02/19 at 02:31; Status DC Amlodipine Besylate (Norvasc) 5 mg DAILY PO Last administered on 11/02/19at 08:59; Start 11/01/19 at 11:00 Magnesium Sulfate 50 ml @ 25 mls/hr 1X ONCE IV Last administered on 11/01/19at 12:14; Start 11/01/19 at 11:00; Stop 11/01/19 at 12:59; Status DC Vancomycin HCl 1 gm/Sodium Chloride 250 ml @ 250 mls/hr Q12H IV ; Start 11/02/19 at 16:00 Vancomycin HCl (Vancomycin Trough Level) 1 each 1X ONCE MC ; Start 11/03/19 at 15:30; Stop 11/03/19 at 15:31 Active Scripts Active Folic Acid 1 Mg Tablet 1 Mg PO DAILY Reported Levemir (Insulin Detemir) 100 Unit/1 Ml Vial 1 Unit SQ QHS Flomax (Tamsulosin Hcl) 0.4 Mg Cap.er.24h 1 Cap PO DAILY Percocet 5-325 Mg Tablet (Oxycodone/Acetaminophen) 1 Each Tablet 1 Tab PO PRN BID PRN MDD 2 Tablet(s) 5 Days Hydrocodone-Apap 5-325 (Hydrocodone Bit/Acetaminophen) 1 Tab Tablet 1 Tab PO PRN Q8HRS PRN Losartan Potassium 100 Mg Tablet 100 Mg PO DAILY Methotrexate (Methotrexate Sodium) 2.5 Mg Tablet 6 Tab PO WEEKLY 15mg Q Thursday Melatonin 10 Mg Capsule 1 Cap PO QHS PRN 30 Days Amlodipine Besylate 10 Mg Tablet 10 Mg PO DAILY Gabapentin (Gabapentin) 300 Mg Capsule 300 Mg PO TID Tylenol (Acetaminophen) 325 Mg Tablet 2 Tab PO PRN Q6HRS PRN Metformin Hcl 1,000 Mg Tablet 1,000 Mg PO BIDBFRMEAL Vitals/I & O Vital Sign - Last 24 Hours 11/01/19 11/01/19 11/01/19 11/01/19 10:58 12:15 12:17 13:35 Temp 98.2 98.2 Pulse 68 68 Resp 17 B/P (MAP) 149/53 (85) 149/53 Pulse Ox 98 O2 Delivery Room Air Room Air Room Air 11/01/19 11/01/19 11/01/19 11/01/19 14:56 19:00 19:30 23:19 Temp 98.1 98.5 98.4 98.1 98.5 98.4 Pulse 78 68 63 Resp 16 17 17 B/P (MAP) 155/83 (107) 119/48 (71) 136/40 (72) Pulse Ox 100 100 98 O2 Delivery Room Air Room Air Room Air Room Air 11/02/19 11/02/19 11/02/19 11/02/19 02:51 03:55 04:52 07:15 Temp 98.2 97.9 98.2 97.9 Pulse 72 62 Resp 19 20 B/P (MAP) 143/56 (85) 137/57 (83) Pulse Ox 99 99 99 95 O2 Delivery Room Air Room Air Room Air Room Air 11/02/19 11/02/19 11/02/19 07:52 08:59 09:00 Pulse 62 62 B/P (MAP) 137/57 137/57 O2 Delivery Room Air Intake and Output 11/01/19 11/01/19 11/02/19 15:00 23:00 07:00 Intake Total 640 ml 400 ml 80 ml Balance 640 ml 400 ml 80 ml DEVORA BOSCH MD November 02, 2019 10:31
[2019-11-02] MEDS ORDERED: MAGNESIUM SULFATE 2GM 50 ML IV ONE (10:45)
[2019-11-02] MEDS ORDERED: HYDR-2145 PO (10:45)
[2019-11-02] MEDS ORDERED: VANC1PLA9 IV (10:45)
[2019-11-02] MEDS ORDERED: traZODone 50 MG TABLET. PO PRN (10:45)
[2019-11-02] MEDS ORDERED: TRAZ-118 PO (10:45)
[2019-11-02] MEDS ORDERED: OXYC5TAB4 PO (10:45)
[2019-11-02] MEDS ORDERED: POLY17PO28 PO (10:45)
[2019-11-02] MEDS ORDERED: Diclofenac Sodium TP (10:45)
[2019-11-02] MEDS ORDERED: INSU100I11 SQ (10:45)
[2019-11-02] MEDS ORDERED: ENOX40DI3 SQ (10:45)
--- NOTE | 2019-11-02 10:46 | SNU/HH DC ---
DISCHARGE ORDERS DISCHARGE INFORMATION: DISCHARGE DATE: November 02, 2019 FINAL DIAGNOSIS Problems Medical Problems: (1) Back pain Status: Acute (2) UTI (lower urinary tract infection) Status: Acute CONDITION ON DISCHARGE: Stable CODE STATUS: Code Status: Full POST DISCHARGE ORDERS: ACTIVITY ORDERS: Activity as tolerated WEIGHT BEARING STATUS: As tolerated DIET AFTER DISCHARGE: ADA WOUND/INCISION CARE: Change dressing FOLLOW-UP: PHYSICIAN FOLLOW-UP: dr. bosch LAB ORDERS FOR FOLLOW-UP: cbc and bmp and magnesium and prealbumin tomorrow TREATMENT/EQUIPMENT ORDERS: ADAPTIVE EQUIPMENT NEEDED: Front wheeled walker, Wheelchair Physical Therapy For: Evalulation/Treatment Occupational Therapy For: Evaluation/Treatment DISCHARGE MEDICATIONS: Home Meds Active Scripts Insulin Lispro (HUMALOG) 100 Unit/1 Ml Insuln.pen, 0 UNITS SQ TIDWMEALS for DM, #1 EACH BG 150-199=1 unit 200-299=2 units 300-399=4 units 400-499=6 units Prov:DEVORA BOSCH MD 11/02/19 Polyethylene Glycol 3350 (POLYETHYLENE GLYCOL 3350) 17 Gm Powd.pack, 17 GM PO DAILY for constipation, #255 GM Prov:DEVORA BOSCH MD 11/02/19 Hydrochlorothiazide (HYDROCHLOROTHIAZIDE TABLET ) 25 Mg Tablet, 25 MG PO DAILY for HTN, #30 TAB Prov:DEVORA BOSCH MD 11/02/19 Trazodone Hcl (TRAZODONE HCL) 50 Mg Tablet, 50 MG PO QHS for insomnia, #30 TAB Prov:DEVORA BOSCH MD 11/02/19 Oxycodone Hcl (OXYCODONE HCL IMMED.RELEASE ) 5 Mg Tablet, 5 MG PO PRN BID PRN for SEVERE PAIN, #10 TAB Prov:DEVORA BOSCH MD 11/02/19 [Diclofenac Sodium 1% Topical] 100 GM GEL..GRAM. No Conflict Check, 1 KATI TP BID for osteoarthrits, #100 GM Prov:DEVORA BOSCH MD 11/02/19 Enoxaparin Sodium (ENOXAPARIN SODIUM) 40 Mg/0.4 Ml Disp.syrin, 40 MG SQ Q24H for dvt prophylaxis, #30 DIS.SYR Prov:DEVORA BOSCH MD 11/02/19 Vancomycin/0.9 % Sod Chloride (Vanco 1 Gram/250 ml-0.9% NaCl) 1 Gm/250 Ml Plast..bag, 1 GM IV Q12HR for bacteremia for 5 Days, EACH Prov:DEVORA BOSCH MD 11/02/19 Folic Acid (FOLIC ACID) 1 Mg Tablet, 1 MG PO DAILY for takes methotrexate, #30 TAB Prov:DEVORA BOSCH MD 10/07/18 Reported Medications Tamsulosin Hcl (FLOMAX) 0.4 Mg Cap.er.24h, 1 CAP PO DAILY for bladder health, #30 CAP 11 Refills 10/30/19 Losartan Potassium (LOSARTAN POTASSIUM) 100 Mg Tablet, 100 MG PO DAILY for HYPERTENSION, TAB 10/30/19 Methotrexate Sodium (METHOTREXATE) 2.5 Mg Tablet, 6 TAB PO WEEKLY for RA, #24 TAB 1 Refill 15mg Q Thursday10/30/19 Amlodipine Besylate (AMLODIPINE BESYLATE) 10 Mg Tablet, 10 MG PO DAILY for HYPERTENSION 10/04/18 Gabapentin (GABAPENTIN ) 300 Mg Capsule, 300 MG PO TID for NEUROGENIC PAIN, CAP 10/04/18 Acetaminophen (TYLENOL) 325 Mg Tablet, 2 TAB PO PRN Q6HRS PRN for PAIN, #30 TAB 01/09/16 Metformin Hcl (METFORMIN HCL) 1,000 Mg Tablet, 1000 MG PO BIDBFRMEAL 05/12/13 Discontinued Reported Medications Insulin Detemir (LEVEMIR) 100 Unit/1 Ml Vial, 1 UNIT SQ QHS for hyperglycemia, VIAL 10/30/19 Oxycodone/Apap 5-325 (PERCOCET 5-325 MG TABLET ) 1 Each Tablet, 1 TAB PO PRN BID PRN for PAIN MDD 2 Tablet(s) for 5 Days, #10 TAB 0 Refills 10/30/19 Hydrocodone Bit/Acetaminophen (HYDROCODONE-APAP 5-325 ) 1 Tab Tablet, 1 TAB PO PRN Q8HRS PRN for PAIN, TAB 0 Refills 10/30/19 Melatonin (MELATONIN) 10 Mg Capsule, 1 CAP PO QHS PRN for sleep for 30 Days, #30 CAP 0 Refills 08/22/19 DEVORA BOSCH MD November 02, 2019 10:46
[2019-11-02 10:51] VITALS: BP 131/60
--- NOTE | 2019-11-02 11:15 | NUR ---
SS following up with discharge planning. SS reviewed pt chart and discussed with pt RN. Pt accepted at [facility], ; fax [phone]. Discharge orders received. SS phoned and faxed discharge orders to [facility]. SS left message for pt's [place] FORTUNE. [facility] to contact SS with tow picker time. SS will continue to follow for discharge planning.
--- NOTE | 2019-11-02 11:26 | PDOC ---
Infectious Disease Note Subjective: Subjective pt feels better ready for dc to [facility] today Vital Signs: Vital Signs Vital Signs Date Time Temp Pulse Resp B/P (MAP) Pulse Ox O2 Delivery O2 Flow Rate FiO2 11/02/19 10:51 97.2 60 20 131/60 (83) 95 Room Air 97.2 Physical Exam: PHYSICAL EXAM GENERAL: Alert, oriented x 3 female, lying in bed comfortably, in no acute distress, pleasant, cooperative. HEENT: Normocephalic, atraumatic, anicteric. No thrush. NECK: Supple, no JVD, no lymphadenopathy. LUNGS: Clear bilaterally. No wheezing. HEART: S1, S2. No gallops or murmurs. ABDOMEN: Soft, nontender, nondistended. GENITOURINARY: Briefs in place. NEUROLOGIC: Alert and oriented x 3, able to move all 4 extremities. DERMATOLOGIC: Warm and dry. No generalized rash. PSYCHIATRIC: Cooperative. Medications: Inpatient Meds: Current Medications Medications (Trade) Dose Ordered Sig/Shama Start Time Stop Time Status Last Admin Dose Admin Acetaminophen (Tylenol) 650 mg PRN Q6HRS PRN 10/30/19 16:15 Amlodipine Besylate (Norvasc) 5 mg DAILY 11/01/19 11:00 11/02/19 08:59 5 MG Bupivacaine HCl (Sensorcaine-Mpf 0.25%) 10 ml 1X ONCE 10/31/19 10:30 10/31/19 10:31 DC 10/31/19 10:30 10 ML Ceftriaxone Sodium (Rocephin) 1 gm 1X ONCE 10/30/19 15:15 10/30/19 15:16 DC 10/30/19 16:04 1 GM Clonidine HCl (Catapres) 0.1 mg Q6HRS PRN 10/30/19 16:15 Diclofenac Sodium (Voltaren) 1 demetra BID 10/31/19 10:00 11/02/19 08:59 1 DEMETRA Enoxaparin Sodium (Lovenox 40mg Syringe) 40 mg Q24H 10/30/19 21:00 11/01/19 22:03 40 MG Folic Acid (Folic Acid) 1 mg DAILY 10/31/19 09:00 11/02/19 08:59 1 MG Gabapentin (Neurontin) 300 mg TID 10/30/19 21:00 11/02/19 08:59 300 MG Hydrochlorothiazide (Hydrodiuril) 25 mg DAILY 10/31/19 09:00 11/02/19 08:59 25 MG Insulin Glargine (Lantus Syringe) 10 unit QHS 10/30/19 21:00 10/31/19 10:29 DC 10/30/19 21:05 10 UNIT Insulin Human Lispro (HumaLOG) 0-6 UNITS TIDWMEALS 10/30/19 17:00 11/01/19 17:07 1 UNITS Lactulose (Lactulose) 20 gm Q2H 10/31/19 13:00 10/31/19 15:01 DC Losartan Potassium (Cozaar) 100 mg DAILY 10/31/19 09:00 11/02/19 09:00 100 MG Magnesium Hydroxide (Milk Of Magnesia) 2,400 mg PRN DAILY PRN 10/30/19 16:45 Magnesium Sulfate 50 ml @ 25 mls/hr 1X ONCE 11/02/19 10:45 11/02/19 12:44 11/02/19 10:49 25 MLS/HR Metformin HCl (Glucophage) 1,000 mg BIDWMEALS 10/30/19 17:00 11/02/19 08:59 1,000 MG Methotrexate (Rheumatrex) 15 mg WEEKLY 10/30/19 18:00 10/30/19 20:43 15 MG Methylprednisolone Acetate (DEPO-Medrol 40MG VIAL) 40 mg 1X ONCE 10/31/19 10:30 10/31/19 10:31 DC 10/31/19 10:30 40 MG Ondansetron HCl (Zofran) 4 mg PRN Q8HRS PRN 10/30/19 15:30 10/31/19 15:29 DC Oxycodone HCl (Roxicodone) 5 mg PRN BID PRN 10/30/19 16:30 11/02/19 03:55 5 MG Polyethylene Glycol (miraLAX PACKET) 17 gm DAILY 10/31/19 12:00 11/02/19 08:59 17 GM Sodium Chloride 1,000 ml @ 40 mls/hr Q24H 10/30/19 16:15 11/02/19 04:01 40 MLS/HR Tamsulosin HCl (Flomax) 0.4 mg DAILY 10/31/19 09:00 11/02/19 08:59 0.4 MG Trazodone HCl (Desyrel) 50 mg QHS 11/02/19 21:00 Vancomycin HCl (Vanco Per Pharmacy) 1 each Q12HR PRN 10/31/19 15:30 11/02/19 04:52 1 EACH Vancomycin HCl (Vancomycin Trough Level) 1 each 1X ONCE 11/03/19 15:30 11/03/19 15:31 Vancomycin HCl 1.5 gm/Sodium Chloride 500 ml @ 250 mls/hr 1X ONCE 10/31/19 15:30 10/31/19 17:29 DC 10/31/19 15:37 250 MLS/HR Vancomycin HCl 1 gm/Sodium Chloride 250 ml @ 250 mls/hr Q12H 11/02/19 16:00 Labs: Lab Laboratory Tests Test 11/01/19 16:31 11/01/19 20:30 11/02/19 02:38 11/02/19 07:49 Glucose (Fingerstick) 162 mg/dL (70-99) 163 mg/dL (70-99) 142 mg/dL (70-99) White Blood Count 3.3 x10^3/uL (4.0-11.0) Red Blood Count 3.25 x10^6/uL (3.50-5.40) Hemoglobin 10.1 g/dL (12.0-15.5) Hematocrit 29.9 % (36.0-47.0) Mean Corpuscular Volume 92 fL (79-100) Mean Corpuscular Hemoglobin 31 pg (25-35) Mean Corpuscular Hemoglobin Concent 34 g/dL (31-37) Red Cell Distribution Width 14.5 % (11.5-14.5) Platelet Count 165 x10^3/uL (140-400) Neutrophils (%) (Auto) 61 % (31-73) Lymphocytes (%) (Auto) 32 % (24-48) Monocytes (%) (Auto) 5 % (0-9) Eosinophils (%) (Auto) 2 % (0-3) Basophils (%) (Auto) 1 % (0-3) Neutrophils # (Auto) 2.0 x10^3/uL (1.8-7.7) Lymphocytes # (Auto) 1.1 x10^3/uL (1.0-4.8) Monocytes # (Auto) 0.2 x10^3/uL (0.0-1.1) Eosinophils # (Auto) 0.1 x10^3/uL (0.0-0.7) Basophils # (Auto) 0.0 x10^3/uL (0.0-0.2) Sodium Level 137 mmol/L (136-145) Potassium Level 4.1 mmol/L (3.5-5.1) Chloride Level 101 mmol/L (98-107) Carbon Dioxide Level 26 mmol/L (21-32) Anion Gap 10 (6-14) Blood Urea Nitrogen 18 mg/dL (7-20) Creatinine 0.8 mg/dL (0.6-1.0) Estimated GFR (Cockcroft-Gault) 84.2 Glucose Level 208 mg/dL (70-99) Calcium Level 8.3 mg/dL (8.5-10.1) Magnesium Level 1.6 mg/dL (1.8-2.4) Vancomycin Level Trough 9.6 mcg/mL (10.0-20.0) Vancomycin Last Dose Date 10/31 Vancomycin Last Dose Time 0900 Test 11/02/19 11:13 Glucose (Fingerstick) 258 mg/dL (70-99) Objective: Assessment: 1. Generalized weakness with fall. 2. Dehydration, resolved. 3. Bacteremia, 1/2 bottles positive for gram-positive cocci could be a contaminant.ID still pending 4. Dysuria on admission. UA was negative. Status post 1 dose of ceftriaxone. 5. Right leg weakness, improved. 6. Right knee and hip pain, improved. 7. Cervical spondylosis, lumbar spinal stenosis. 8. Diabetes mellitus 2 with peripheral neuropathy. 9. Hypertension. 10. Generalized debility. 11. Leukopenia, trend WBC. Plan: Plan of Care PT been dc to [facility] later today S/P Vanc this am,dc for now f/u final id and nnig of GPC till final PT and OT d/w Dr Holcomb and CONNIE Solano RN, MD November 02, 2019 11:26
--- NOTE | 2019-11-02 11:34 | DS ---
DATE OF DISCHARGE: 11/02/2019 CONSULTANTS: Include Dr. Ana Linares, Dr. Montero, and Dr. Ferrell. FINAL DIAGNOSES: 1. 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 2. Cervical spondylosis. 3. Dehydration. 4. Generalized weakness with fall. 5. Anemia of chronic disease. 6. Diabetes mellitus type 2, on insulin with peripheral neuropathy. 7. Hypertension. 8. Cervical spondylosis. 9. Lumbar spinal stenosis. 10. Hypomagnesemia. 11. Rheumatoid arthritis. 12. Debility due to diabetic peripheral neuropathy and lumbar spinal stenosis. 13. Gram-positive cocci bacteremia in 1 of 2 bottles positive, final identification pending. 14. Insomnia. HOSPITAL COURSE: The patient is a 79-year-old -[place] female with a history of diabetes mellitus type 2, on insulin, hypertension and anemia of chronic disease, cervical spondylosis. She lives alone, uses a walker and sustained a fall. The night before admission around 1:00 in the morning as her legs became weak and she did not lose consciousness or bump her head and had no chest pain, shortness of breath or dizziness or head trauma and she was found by her daughter 12 hours later on the floor around 1:00 in the afternoon and sent to the [facility] Emergency Room. Surprisingly, her CPK level was not elevated. She had pain in the right hip and right knee and x-ray just showed arthritis with no fracture. She had some dysuria but the urinalysis showed only 1-4 white cells, although she did receive a dose of IV Rocephin and Klebsiella did grow in the urine, it was a contaminant. She had no pyuria. She did have 1 out of 2 blood cultures positive and was seen by Dr. Ana Linares and is on IV vancomycin with final identification and sensitivities are pending and is possibly could be a contaminant. Since her p.o. fluid intake was borderline IV fluids at 40 mL an hour we ordered to protect her kidneys on IV vancomycin. She complained of insomnia and trazodone was ordered. She received physical and occupational therapy. She continued with her antihypertensive medication. Levemir insulin was discontinued as she had a low sugar and she was just placed on a NovoLog insulin sliding scale and metformin. It is anticipated that she will be dismissed to [facility] today and she will be dismissed on Voltaren gel applied b.i.d. to her knees. Lovenox 40 mg subcutaneous every 24 hours for DVT prophylaxis, hydrochlorothiazide 25 mg every day, low dose Humalog insulin sliding scale before meals t.i.d. as written and oxycodone 5 mg b.i.d. p.r.n. for severe pain, MiraLax 17 grams daily, trazodone 50 mg at bedtime, vancomycin 1 gram IV every 12 hours for 5 more days, Tylenol 325 mg 2 tablets every 6 hours p.r.n., amlodipine 10 mg every day, folic acid 1 mg every day, gabapentin 300 mg t.i.d., losartan 100 mg every day, metformin 1000 mg b.i.d., methotrexate 15 mg every Thursday, tamsulosin 0.4 mg every day and one-half normal saline at 40 mL an hour. DEVORA BOSCH MD DR: MONIQUE/azar JOB#: [id number] / [id number]
--- NOTE | 2019-11-02 13:12 | NUR ---
SS following up with discharge planning. [facility] contacted SS and reported that transportation has been scheduled through [facility] at 1630. Pt, pt's family, and pt's RN notified.
[2019-11-02 14:48] VITALS: BP 126/71
[2019-11-02] MEDS ORDERED: VANCOMYCIN 1 GM in IV NORMAL SALINE 250ML 250 ML IV SCH (16:00)
--- NOTE | 2019-11-02 17:15 | NUR ---
Discharge Note: MIS LEE Discharge instructions and discharge home medications reviewed with Other facility and a copy given. All questions have been answered and understanding verbalized. [facility] to [facility] at [facility]. The following instructions and handouts were given: information about plan of care, medications, history, IVF, tests/lab results, etc. Discontinued lines and drains: IV line in right forearm left in place so [facility] to continue to IVF. Patient discharged to [facility] with transportation clerk, wheelchair used for mobility to discharge vehicle.
[2019-11-02] MEDS ORDERED: traZODone 50 MG TABLET. PO SCH (21:00)
== END 2019-11-02 17:15 | DRG 551 ==
LOC: ER 13:56 → 4 NORTH 15:05
PROVIDERS: ADMIT Internal Medicine; ATTEND Internal Medicine
DX: M47.816 Spondylosis without myelopathy or radiculopathy, lumbar region (principal); G82.50 Quadriplegia, unspecified; N39.0 Urinary tract infection, site not specified; E11.42 Type 2 diabetes mellitus with diabetic polyneuropathy; D63.8 Anemia in other chronic diseases classified elsewhere; D72.819 Decreased white blood cell count, unspecified; E11.319 Type 2 diabetes mellitus with unspecified diabetic retinopathy without macular edema; E78.00 Pure hypercholesterolemia, unspecified; E78.5 Hyperlipidemia, unspecified; E83.42 Hypomagnesemia; E86.0 Dehydration; G47.00 Insomnia, unspecified; G72.89 Other specified myopathies; G89.29 Other chronic pain; I11.0 Hypertensive heart disease with heart failure; I50.9 Heart failure, unspecified; M06.9 Rheumatoid arthritis, unspecified; M17.0 Bilateral primary osteoarthritis of knee; M40.202 Unspecified kyphosis, cervical region; M47.812 Spondylosis without myelopathy or radiculopathy, cervical region; M48.02 Spinal stenosis, cervical region; M48.061 Spinal stenosis, lumbar region without neurogenic claudication; M81.0 Age-related osteoporosis without current pathological fracture; Z79.4 Long term (current) use of insulin; Z79.899 Other long term (current) drug therapy; Z86.73 Personal history of transient ischemic attack (TIA), and cerebral infarction without residual deficits; Z90.49 Acquired absence of other specified parts of digestive tract; Z90.710 Acquired absence of both cervix and uterus; Z98.1 Arthrodesis status; F32.9 Major depressive disorder, single episode, unspecified; F41.9 Anxiety disorder, unspecified; Z60.2 Problems related to living alone
CPT/HCPCS: 36415; 70450; 71045; 72125; 72131; 73502; 73560; 80048; 80053; 80061; 80202; 81001; 82550; 82962; 83036; 83735; 84439; 84443; 84484; 85025; 87040; 87086; 87205; 93005; 96361; 96374; 99285; J0696; J1030; J1650; J1815; J3370; J3475; J3490; J7030; J7040; J7050; J8610; 97110-GP; 97116-GP; 97530-GO; 97530-GP; 97535-GO; G0378

== ENCOUNTER → 2020-01-03 | Outpatient (CLI) | payer MEDICARE, OTHER ==
[~2020-01-03] MED LIST changes: +Diclofenac Sodium TP; +ENOX40DI3 SQ; +HYDR-2145 PO; +INSU100V13 SQ; +IOHEXOL 180 MG/ML 10 ML VIAL. ONE; +LOSA100T14 PO; +OXYC1TAB15 PO; +OXYC5TAB4 PO; +POLY17PO28 PO; +TRAZ-118 PO; +VANC1PLA9 IV; +methylPREDNISolone ACETATE 40 MG/ML VIAL. ONE; +methylPREDNISolone ACETATE 80 MG/ML VIAL. ONE
--- NOTE | 2020-01-03 19:08 | PAIN ---
DATE OF SERVICE: 01/03/2020 PROGRESS NOTE FOR PAIN CLINIC DIAGNOSES: 1. Lumbar radiculopathy with lumbar degenerative disk disease and lumbar spinal stenosis. 2. Cervical post-laminectomy syndrome. HISTORY OF PRESENT ILLNESS: The patient is a 79-year-old female who returns for followup status post lumbar epidural steroid injections, most recently 08/22/2019. The patient reports she does well, but only for a temporary period of time, the pain decreases in the low back especially in the right lower extremity. The patient still has difficulty with mobility secondary to pain and arthritic conditions as well as cervical post-laminectomy syndrome. The patient reports it is difficult to walk, but she is better with sitting or lying down. She is becoming less mobile. The patient is accompanied by her daughter today and reports saying that her mobility is becoming less and less with time, that she is becoming more painful. The patient did have a new CT scan of lumbar spine. We reviewed this with she and her daughter showing some significant areas of severe stenosis in the lumbar distribution, but no surgical indications at this time or wished by she or her family. The patient reports she has been dragging her right leg and right foot because of the pain is radiating down the right leg, posterior gluteus, posterolateral thigh, lateral anterior thigh, anterior medial thigh, medial lower leg to the ankle. The patient reports no complete loss of motor function, no new bowel or bladder incontinence or other complaints. PHYSICAL EXAMINATION: VITAL SIGNS: The patient's blood pressure is 123/64, pulse 78, respirations 16, temperature is 98.2 degrees Fahrenheit, height is 5 feet 10 inches, weight is 140 pounds. The patient rates her pain as a 9 on a scale of 10 at its worst over the past week, 8 on average, 7 at its least and is an 8 today. GENERAL: The patient is awake, alert, oriented, appropriate, very pleasant demeanor. HEENT: Shows normocephalic, atraumatic. Extraocular movements are intact and symmetrical. Oral cavity: Mucous membranes moist and pink. NECK: Shows anterior throat supple with significant forward cervical flexion and well-healed surgical scarring noted in the posterior and anterior cervical distributions. CHEST: Shows normal on inspection. Breath sounds are clear bilaterally. No rales, rhonchi or wheezes auscultated. HEART: Shows S1, S2 clear. No murmurs auscultated. ABDOMEN: Soft, nontender, and nondistended. BACK: Shows spine grossly in the midline. Again, significant increase in forward cervical flexion and increased thoracic kyphosis with some flattening of lumbar lordotic curvature. Lumbar paraspinous muscle shows symmetrical on inspection, with palpation shows some moderate tenderness diffusely bilaterally but only diffusely without significant radiation. The patient has limited rotational motion of lumbar spine, both laterally as well as extension and flexion secondary to pain. No tenderness over the spinous processes, sacrum or sacroiliac regions. EXTREMITIES: Lower extremities show deep tendon reflexes at 1+ in the patellar and tendo calcaneus tendons. Motor exam is approximately 3-4 on a scale of 5 with quadriceps and hamstring flexion 4 on a scale of 5 with bilateral ankles, but are symmetrical. Peripheral pulses are 1+. No peripheral edema is noted in the lower extremities bilaterally. Options were discussed with the patient. The patient's old chart was reviewed as her current medication regimen updated. Current review of systems updated today as well. We will proceed with a first in this series of lumbar epidural steroid injection today with fluoroscopic guidance. Risks were discussed including but not limited to bleeding, infection, possibility of epidural hematoma, subsequent neurological compromise, dural puncture, headaches, spinal cord and/or nerve damage, side effects of steroid medication and poor results regarding pain control. The patient understands and wished to proceed. The patient will return to clinic in approximately 2 weeks for followup. She was counseled on return appointment, activity level and side effects to be aware of. DIAGNOSIS: Lumbar radiculopathy with lumbar degenerative disk disease, lumbar spinal stenosis. PROCEDURE: Lumbar epidural steroid injection, translaminar approach L4-L5 level using C-arm fluoroscopic guidance under sterile prep and drape using local anesthetic. MEDICATION INJECTED: A total of 120 mg Depo-Medrol plus 10 mL preservative-free normal saline and 2 mL of contrast. CONDITION AT DISCHARGE: Stable. The patient tolerated procedure well, had no complications. CHANNING SOLIZ MD DR: [place]/azar JOB#: [id number] / [id number]
== END | disposition home or self-care (01) ==
LOC: PNCL 13:58
PROVIDERS: ATTEND Anesthesiology
DX: M51.16 Intervertebral disc disorders with radiculopathy, lumbar region (principal); M48.061 Spinal stenosis, lumbar region without neurogenic claudication; Z79.899 Other long term (current) drug therapy
CPT/HCPCS: 62323; J1030; J1040; Q9965

== ENCOUNTER → 2020-01-27 | Outpatient (CLI) | payer MEDICARE, OTHER ==
--- NOTE | 2020-01-27 11:52 | PDOC ---
Progress Note - Pain Clinic Date of Service: DOS: DATE: 01/27/20 TIME: 11:48 Diagnosis: Dx: Lumbar radiculopathy with lumbar degenerative disease and lumbar spinal stenosis Post cervical laminectomy syndrome History or Present Illness: HPI: 79-year-old female returns follow-up status post lumbar epidural surgery x1 December 26, 2019. Patient reports 50% improvement for about the first 1 to 2 weeks and the pain returned in the low back in the right lower extremity segment left lower extremities were mostly in the right and the posterior gluteus posterior thigh posterior calf and lateral thigh patient reports it started to become more painful on the left with standing walking weightbearing patient is using a wheelchair when she can and a mobile chair when possible and has that with her today. Patient has pain is aching sharp in the back shooting into the lower extremities mostly on the right side radiating in the legs with moving becoming constant and severe better with sitting or laying down generally does not awaken her from sleep at night. Patient rates her pain is 8 on a scale of 10 is worse with the past week 7 on average 6 at its least and is a 7 today. Patient reports no new motor or sensory deficits no bowel or bladder incontinence with complaints. Patient son accompanies her today. Physical Exam: VS: Blood pressure is 146/68 pulse 72 respiration 16 temperature 98.2 F height is 5 foot 10 inches weight is 1 3 5 pound PE: PHYSICAL EXAMINATION: GENERAL: The patient is awake, alert, oriented, appropriate, very pleasant demeanor HEENT: Shows normocephalic, atraumatic. Extraocular movements are intact and symmetrical. Oral cavity- Dentition is intact. NECK: Shows anterior throat supple without palpable lymphadenopathy noted. Swallow reflex symmetrical. CHEST: Shows normal on inspection. Breath sounds are clear bilaterally no rales rhonchi or wheezes auscultated. HEART: Shows S1, S2 clear. No murmurs auscultated. ABDOMEN: Soft, nontender, nondistended. No palpable organomegaly is noted. No rebound or guarding demonstrated. BACK: Shows spine grossly in the midline. Significant forward flexion of the cervical spine is noted with flexed cervical lordotic curvature. There is slightly increased thoracic kyphosis, some minor flattening of the lumbar lordotic curvature. Lumbar paraspinous muscles show symmetrical on inspection, on palpation shows some moderate tenderness diffusely throughout the upper, middle and lower distribution of the paraspinous muscles, but without specific trigger points, without radiation of pain. The patient has good rotational motion of the lumbar spine, both laterally as well as extension and flexion without significant difficulty. No tenderness over the spinous processes, sacrum or sacroiliac regions. EXTREMITIES: Lower extremities show deep tendon reflexes 1+ in the patellar and tendo calcaneus tendons. Motor exam is 3-4 on a scale of 5 with right dorsiflexion, extension, quadriceps and hamstring flexion and 4/5 on the left. Peripheral pulses are 1+ posterior tibial. No peripheral edema is noted bilaterally. Lower extremities are warm and dry to touch, equal in color and appearance. SKIN: Shows warm and dry, good turgor. No edema. No sores, rashes or bruising throughout. Procedure: Procedure: Options were discussed with the patient patient's son who accompanied her to her visit today. We will proceed with a second in the series lumbar epidural steroid injection today with fluoroscopic guidance. Risks again discussed including but not limited to bleeding infection possibility of epidural hematoma subsequent neurological compromise dural puncture headache spinal cord and or nerve damage side effects of steroid medication importance of getting pain control. Patient understands wish to proceed patient will return to clinic in approximate 2 weeks or as necessary and was counseled as to return appointment activity level and side effects to be aware of. Medication Injected: Med Injected: Procedure is lumbar epidural steroid injection under local anesthetic using sterile prep and drape at the L4-5 level using C-arm fluoroscopic guidance in both AP and lateral views medications injected is 120 mg Depo-Medrol + 10 mL preservative-free normal saline and 2 mL contrast- condition at discharge is stable patient tolerated procedure well had no complications. Condition at Discharge: Condition at Discharge: Condition at discharge stable patient on the procedure well had no complications. CHANNING SOLIZ MD Jan 27, 2020 11:52
== END | disposition home or self-care (01) ==
LOC: PNCL 10:28
PROVIDERS: ATTEND Anesthesiology
DX: M51.16 Intervertebral disc disorders with radiculopathy, lumbar region (principal); M48.061 Spinal stenosis, lumbar region without neurogenic claudication; Z79.899 Other long term (current) drug therapy
CPT/HCPCS: 62323; J1030; J1040; Q9965